=== PATIENT | female | born 1955 | race Caucasian/White ===

== ENCOUNTER 2020-04-18 13:14 | Outpatient (REF) | payer OTHER, SELFPAY ==
[2020-04-19 12:24] LABS: COVID-19 Test Negative (Negative)
== END 2020-04-18 13:15 | disposition home or self-care (01) ==
LOC: HO.LAB 13:14
PROVIDERS: PCP Internal Medicine; Visit Provider Internal Medicine
DX: Z20.828 Contact with and (suspected) exposure to other viral communicable diseases (principal)
CPT/HCPCS: 87635

== ENCOUNTER 2020-04-20 17:13 | Outpatient (REF) | payer OTHER, SELFPAY ==
[2020-04-20 19:36] LABS: SARS COV2 PCR INHOUSE NEGATIVE (Negative)
== END 2020-04-20 17:14 | disposition home or self-care (01) ==
LOC: HO.LAB 17:13
PROVIDERS: Visit Provider Internal Medicine
DX: Z20.828 Contact with and (suspected) exposure to other viral communicable diseases (principal)
CPT/HCPCS: 87635

== ENCOUNTER 2020-04-23 07:19 | Outpatient (REF) | payer OTHER, SELFPAY ==
[2020-04-23 07:56] LABS: COVID-19 Test Negative (Negative)
== END 2020-04-23 07:20 | disposition home or self-care (01) ==
LOC: HO.LAB 07:19
PROVIDERS: Visit Provider Internal Medicine
DX: Z20.828 Contact with and (suspected) exposure to other viral communicable diseases (principal)
CPT/HCPCS: 87635

== ENCOUNTER 2020-06-13 06:48 | Outpatient (REF) | payer OTHER, SELFPAY ==
[2020-06-13 07:23] LABS: COVID-19 Test Negative (Negative)
== END 2020-06-13 06:49 | disposition home or self-care (01) ==
LOC: HO.EMPCOV 06:48
PROVIDERS: PCP Physician Assistant; Visit Provider Internal Medicine
DX: Z20.828 Contact with and (suspected) exposure to other viral communicable diseases (principal)
CPT/HCPCS: 87635; C9803

== ENCOUNTER 2020-09-03 07:56 | Outpatient (REF) | payer OTHER, SELFPAY ==
--- NOTE | ~2020-09-03 | MM_ITS ---
EXAMINATION: MM SCREENING DIGITAL BREAST TOMOSYNTHESIS, BILATERAL CLINICAL INFORMATION: Screening. Asymptomatic. The lifetime risk of breast cancer based on the Tyrer-Cuzick Model is 6%. COMPARISON: Mammography: 05/17/2018, 02/22/2017, 12/06/2015 TECHNIQUE: Digital breast tomosynthesis is performed in both the craniocaudal and mediolateral oblique views along with computer-aided detection (CAD). Synthesized 2D images are generated from the tomosynthesis. FINDINGS: There are scattered areas of fibroglandular density (ACR BI-RADS breast composition Category b). There are no significant masses, abnormal calcifications, or other abnormalities. Parenchymal pattern is similar to prior exams. There are scattered bilateral benign calcifications again seen, round, vascular, and ductal secretory. The skin contours are unremarkable. MM/MM tomosynthesis screening BI IMPRESSION: No mammographic evidence of malignancy. ASSESSMENT: BI-RADS 2: Benign RECOMMENDATION: Routine annual mammography screening. This patient's information was entered into a reminder system with a target due date for their next mammogram.
== END 2020-09-03 07:57 | disposition home or self-care (01) ==
LOC: HO.MAMMO 07:56
PROVIDERS: Absent Provider Obstetrics & Gynecology; Visit Provider Physician Assistant
DX: Z12.31 Encounter for screening mammogram for malignant neoplasm of breast (principal)
CPT/HCPCS: 77063; 77067

== ENCOUNTER 2020-10-01 07:19 | Outpatient (REF) | payer OTHER, SELFPAY ==
[2020-10-01 08:16] LABS: MANUAL DIFF FLAG NO
[2020-10-01 08:19] LABS: Basophils Percent Auto 0.6 % (0-2); Eosinophils Absolute Auto 0.1 X10*3/uL (0.0-0.4); Eosinophils Percent Auto 2.4 % (0-4); Hematocrit 43.9 % (37-47); Hemoglobin 14.5 g/dl (12.0-16.0); Imm Gran Abs Auto 0.01 X10*3/uL (0.00-0.03); Imm Gran Pct Auto 0.2 % (0.0-0.4); Lymphocytes Absolute Auto 1.8 X10*3/uL (1.2-4.9); Lymphocytes Percent Auto 34.9 % (20-40); Mean Corpuscular Hemoglobin 29.4 pg (27.0-33.0); Mean Platelet Volume 10.4 fL (9.4-12.3); Monocytes Absolute Auto 0.4 X10*3/uL (0.1-1.2); Monocytes Percent Auto 7.7 % (2-11); Neutrophils Absolute Auto 2.8 X10*3/uL (2.0-8.3); Neutrophils Percent Auto 54.2 % (45-73); Platelet Count 271 X10*3/uL (160-400); Red Blood Count 4.93 X10*6/uL (4.20-5.50); Red Cell Distribution Width 11.9 % (11.0-16.0); White Blood Count 5.1 X10*3/uL (4.8-10.8)
[2020-10-01 08:39] LABS: Alanine Aminotransferase 31 U/L (0-31); Albumin Level 4.5 g/dL (3.5-5.0); Alkaline Phosphatase 86 U/L (39-117); Anion Gap 13 (12-20); Aspartate Amino Transferase 24 U/L (5-31); Bilirubin Total 0.6 mg/dL (0.0-1.0); Blood Urea Nitrogen 15 mg/dL (9-16); Carbon Dioxide 31 mmol/L (22-29); Chloride 101 mmol/L (96-108); Cholesterol 191 mg/dL; Estimated Glomerular Filt Rate > 60; Glucose Fasting 123 mg/dL (60-99); HDL Cholesterol 51 mg/dL; LDL Cholesterol Calculated 123 mg/dl; Potassium 4.5 mmol/L (3.3-5.1); Sodium 140 mmol/L (135-145); Triglycerides 87 mg/dL
[2020-10-01 08:49] LABS: Creatinine Urine 170.37 mg/dL
[2020-10-01 09:02] LABS: TSH reflex Free T4 3.14 uIU/mL (0.32-4.0)
== END 2020-10-01 07:20 | disposition home or self-care (01) ==
LOC: HO.LAB 07:19
PROVIDERS: PCP Physician Assistant; Visit Provider Physician Assistant
DX: E11.9 Type 2 diabetes mellitus without complications (principal)
CPT/HCPCS: 36415; 80053; 80061; 82043; 84443; 85025

== ENCOUNTER 2021-04-29 07:11 | Outpatient (REF) | payer OTHER, SELFPAY ==
[2021-04-29 07:28] LABS: Hematocrit 40.9 % (37-47); Mean Corpuscular HGB Conc 34.2 g/dl (31.0-35.0); Mean Corpuscular Hemoglobin 30.6 pg (27.0-33.0); Mean Corpuscular Volume 89.5 fL (80-98); Mean Platelet Volume 9.7 fL (9.4-12.3); Platelet Count 277 X10*3/uL (160-400); Red Blood Count 4.57 X10*6/uL (4.20-5.50); Red Cell Distribution Width 11.6 % (11.0-16.0); White Blood Count 6.4 X10*3/uL (4.8-10.8)
[2021-04-29 07:55] LABS: Alanine Aminotransferase 71 U/L (0-31); Albumin Level 4.3 g/dL (3.5-5.0); Alkaline Phosphatase 96 U/L (39-117); Anion Gap 11 (12-20); Aspartate Amino Transferase 35 U/L (5-31); Bilirubin Total 0.4 mg/dL (0.0-1.0); Blood Urea Nitrogen 14 mg/dL (9-16); Calcium 9.4 mg/dL (8.4-10.2); Carbon Dioxide 30 mmol/L (22-29); Chloride 103 mmol/L (96-108); Cholesterol 196 mg/dL; Estimated Glomerular Filt Rate > 60; Glucose Fasting 135 mg/dL (60-99); HDL Cholesterol 50 mg/dL; LDL Cholesterol Calculated 124 mg/dl; Potassium 4.3 mmol/L (3.3-5.1); Sodium 140 mmol/L (135-145); Total Protein 6.8 g/dL (6.5-8.0); Triglycerides 112 mg/dL
== END 2021-04-29 07:12 | disposition home or self-care (01) ==
LOC: HO.LAB 07:11
PROVIDERS: PCP Physician Assistant; Visit Provider Physician Assistant
DX: I10 Essential (primary) hypertension (principal); E78.2 Mixed hyperlipidemia; E11.9 Type 2 diabetes mellitus without complications
CPT/HCPCS: 36415; 80053; 80061; 85027

== ENCOUNTER 2021-06-13 09:55 | Outpatient (REF) | payer OTHER, SELFPAY ==
[2021-06-13 11:31] LABS: Influenza A PCR NEGATIVE (Negative); Influenza B PCR NEGATIVE (Negative); Resp Syncy Virus RNA Qual PCR NEGATIVE (Negative); SARS COV2 PCR INHOUSE NEGATIVE (Negative)
== END 2021-06-13 09:56 | disposition home or self-care (01) ==
LOC: HO.LAB 09:55
PROVIDERS: PCP Internal Medicine; Visit Provider Internal Medicine
DX: Z20.822 Contact with and (suspected) exposure to COVID-19 (principal)
CPT/HCPCS: 0241U; 36415

== ENCOUNTER 2021-06-14 07:51 | Outpatient (REF) | payer OTHER, SELFPAY ==
--- NOTE | ~2021-06-14 | US_ITS ---
EXAMINATION: US ABDOMEN COMPLETE CLINICAL INFORMATION: Elevated LFTs. COMPARISON: None. TECHNIQUE: Real-time imaging of the abdominal viscera. FINDINGS: PANCREAS: Normal. ABDOMINAL AORTA: The proximal, mid, and distal segments are normal in caliber. INFERIOR VENA CAVA: Visualized portions are normal. LIVER: The liver is diffusely echogenic with areas of focal fatty sparing. The liver is normal in size. The liver contour is normal. No focal hepatic lesion. There is no intrahepatic biliary duct dilatation seen. GALLBLADDER: Normal. The gallbladder is physiologically distended without evidence of stones, sludge, polyps, wall thickening or pericholecystic fluid. COMMON BILE DUCT: Normal in caliber measuring 0.4 cm in diameter. RIGHT KIDNEY: Normal. No hydronephrosis. No renal calculi or focal parenchymal lesions. The kidney measures 11.9 cm in maximum dimension. LEFT KIDNEY: Normal. No hydronephrosis. No renal calculi or focal parenchymal lesions. The kidney measures 11.8 cm in maximum dimension. SPLEEN: Normal. The spleen measures 9.0 cm in maximum dimension. FREE FLUID: None. US/US abdomen complete IMPRESSION: Diffuse hepatic steatosis without focal lesion. The rest of the abdominal ultrasound is unremarkable.
== END 2021-06-14 07:52 | disposition home or self-care (01) ==
LOC: HO.US 07:51
PROVIDERS: PCP Physician Assistant; Visit Provider Physician Assistant
DX: R74.8 Abnormal levels of other serum enzymes (principal)
CPT/HCPCS: 76700

== ENCOUNTER 2021-09-09 07:52 | Outpatient (REF) | payer OTHER, SELFPAY ==
--- NOTE | ~2021-09-09 | MM_ITS ---
EXAMINATION: MM SCREENING DIGITAL BREAST TOMOSYNTHESIS, BILATERAL CLINICAL INFORMATION: Screening. Asymptomatic. The lifetime risk of breast cancer based on the Tyrer-Cuzick Model is 5%. COMPARISON: Mammography: 09/03/2020, 05/17/2018, 02/22/2017 TECHNIQUE: Digital breast tomosynthesis is performed in both the craniocaudal and mediolateral oblique views along with computer-aided detection (CAD). Synthesized 2D images are generated from the tomosynthesis. FINDINGS: There are scattered areas of fibroglandular density (ACR BI-RADS breast composition Category b). There are no significant masses, abnormal calcifications, or other abnormalities. Breast parenchymal pattern borders on heterogeneously dense. Parenchymal pattern is similar to prior studies and there is no developing density. Again, there are scattered bilateral ductal secretory, round, and dermal, and vascular calcifications. The axilla and skin contours are unremarkable. MM/MM tomosynthesis screening BI IMPRESSION: No mammographic evidence of malignancy. ASSESSMENT: BI-RADS 2: Benign RECOMMENDATION: Routine annual mammography screening. This patient's information was entered into a reminder system with a target due date for their next mammogram.
== END 2021-09-09 07:53 | disposition home or self-care (01) ==
LOC: HO.MAMMO 07:52
PROVIDERS: PCP Physician Assistant; Visit Provider Physician Assistant
DX: Z12.31 Encounter for screening mammogram for malignant neoplasm of breast (principal)
CPT/HCPCS: 77063; 77067

== ENCOUNTER 2021-09-29 14:34 | Inpatient (IN) | payer OTHER, SELFPAY ==
--- NOTE | ~2021-09-29 | NM_ITS ---
EXERCISE MYOCARDIAL PERFUSION STUDY INDICATION: Chest pain, assess for coronary disease and ischemia TECHNIQUE: The patient was brought in for an exercise perfusion study on 10/02/2021. Patient performed exercise as per Antonio protocol and was injected 25 mCi of sestamibi once target heart rate was achieved. Images were obtained using the SPECT gamma camera interlaced with the gating device. Images were obtained in supine position. Resting perfusion study was performed on 10/03/2021. Patient was administered 25 mCi of sestamibi intravenously at rest. Images were then obtained in supine position. Total DLP 97mGy-cm. Images were processed with the software and compared side to side in short axis, horizontal long axis and vertical long axis views. FINDINGS: Raw images were reviewed. The stress perfusion study showed no significant perfusion abnormality. Both uncorrected as well as CT attenuation corrected images were reviewed. The gated study shows normal LV systolic function with calculated LVEF of 73%. LV cavity is normal in size. The gated study shows normal wall thickening and contraction of segments. Resting study shows no significant perfusion abnormality. Gating at rest reveals normal wall motion with ejection fraction at 68%. The findings are consistent with no reversible or fixed perfusion abnormality. NM/NM fam perf SPECT rest & str IMPRESSION: 1. Myocardial perfusion imaging study shows normal myocardial perfusion. 2. Gated LVEF is 70% during stress and 68% during rest. 3. Transient ischemic dilatation not present. EKG component of the test reported separately.
--- NOTE | ~2021-09-29 | XR_ITS ---
EXAMINATION: XR CHEST CLINICAL INFORMATION: Chest pain COMPARISON: None TECHNIQUE: 2 views of the chest were obtained. FINDINGS: No significant abnormality is noted involving the heart, lungs, mediastinum, bony thorax or soft tissues. XR/XR chest 2V IMPRESSION: Unremarkable chest examination.
--- NOTE | 2021-09-29 14:35 | ECG_ITS ---
Test Reason : CHEST PAIN Blood Pressure : / mmHG Vent. Rate : 085 BPM Atrial Rate : 085 BPM P-R Int : 146 ms QRS Dur : 066 ms QT Int : 358 ms P-R-T Axes : 047 002 014 degrees QTc Int : 426 ms Normal sinus rhythm Possible Left atrial enlargement Possible Anterior infarct , age undetermined Nonspecific ST and T wave abnormality Abnormal ECG No previous ECGs available Referred By: Zfoia Zaman Electronically Signed By:JAYNE MADERA
[2021-09-29 14:48] LABS: MANUAL DIFF FLAG NO
[2021-09-29 14:51] LABS: Basophils Absolute Auto 0.1 X10*3/uL (0.0-0.2); Basophils Percent Auto 0.7 % (0-2); Eosinophils Absolute Auto 0.1 X10*3/uL (0.0-0.4); Eosinophils Percent Auto 1.5 % (0-4); Hematocrit 41.2 % (37.0-47.0); Hemoglobin 13.9 g/dl (12.0-16.0); Imm Gran Abs Auto 0.04 X10*3/uL (0.00-0.03); Imm Gran Pct Auto 0.4 % (0.0-0.4); Lymphocytes Absolute Auto 2.6 X10*3/uL (1.2-4.9); Lymphocytes Percent Auto 27.5 % (20-40); Mean Corpuscular HGB Conc 33.7 g/dl (31.0-35.0); Mean Corpuscular Hemoglobin 29.6 pg (27.0-33.0); Mean Corpuscular Volume 87.8 fL (80.0-98.0); Mean Platelet Volume 9.7 fL (9.4-12.3); Monocytes Absolute Auto 0.6 X10*3/uL (0.1-1.2); Neutrophils Absolute Auto 6.1 x10*3/uL (2.0-8.3); Neutrophils Percent Auto 63.9 % (45-73); Platelet Count 315 X10*3/uL (160-400); Red Blood Count 4.69 X10*6/uL (4.20-5.50); Red Cell Distribution Width 11.6 % (11.0-16.0); White Blood Count 9.5 X10*3/uL (4.8-10.8)
[2021-09-29 15:07] LABS: Alanine Aminotransferase 27 U/L (0-31); Albumin Level 4.5 g/dL (3.5-5.0); Alkaline Phosphatase 97 U/L (39-117); Anion Gap 13 (12-20); Aspartate Amino Transferase 20 U/L (5-31); Bilirubin Total 0.3 mg/dL (0.0-1.0); Blood Urea Nitrogen 14 mg/dL (9-16); Carbon Dioxide 28 mmol/L (22-29); Chloride 99 mmol/L (96-108); Estimated Glomerular Filt Rate > 60; Glucose Random 191 mg/dL (60-115); Magnesium 1.9 mg/dL (1.6-2.6); Potassium 4.2 mmol/L (3.3-5.1); Sodium 136 mmol/L (135-145); Total Protein 7.2 g/dL (6.5-8.0)
[2021-09-29 15:09] LABS: Prothrombin Time 11.8 SEC (9.9-13.0)
[2021-09-29 15:12] LABS: B Type Natriuretic Peptide < 10 pg/mL (<100); Troponin-I High Sensitivity < 3.5 ng/L (<3.5-17.0)
--- NOTE | 2021-09-29 15:14 | ED.CHESTPAIN ---
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 She reports that the pain came on suddenly and resolved at rest. She denies any fevers, chills, dizziness, headaches, neck pain/stiffness, trouble swallowing or breathing, jaw pain, paresthesias, dyspnea on exertion, orthopnea, cough, orthopnea, nausea/vomiting/diarrhea constipation, abdominal pain, back pain, rashes, recent falls or trauma, recent immobilization or surgery, history of PVD disease, recent illness, lower extremity edema or calf tenderness or any other symptoms complaints or concerns at this time. MD complaint: chest pain Onset (ago): minute(s) (Prior to arrival) Timing of current episode: episodic Prior episodes: No Onset: during exertion Pain location: substernal and epigastric Pain radiation: none Severity: mild Quality: other (Pressure sensation per patient) Relieving factors: rest Exacerbating factors: exertion Treatment prior to arrival: none Risk Factors Coronary artery disease risk factors: diabetes, hyperlipidemia and hypertension Thoracic aortic dissection risk factors: none Related Data On Oral Contraceptives: No Home Medications Medication Instructions Recorded Confirmed cholecalciferol (vitamin D3) 50 50 mcg PO MOFR 03/09/21 09/29/21 mcg (2,000 unit) capsule atorvastatin 20 mg tablet 20 mg PO MOWEFR 09/29/21 09/29/21 metformin 500 mg tablet,extended 1,000 mg PO BIDWM 09/29/21 09/29/21 release 24 hr Previous Rx's Medication Instructions Recorded blood sugar diagnostic #100 ea 10/24/20 lancets 33 gauge (OneTouch Delica #100 ea 01/16/21 Plus Lancet) blood sugar diagnostic (OneTouch #100 ea 07/10/21 Ultra Test) lisinopril 10 mg tablet 10 mg PO DAILY #90 tab 07/10/21 Allergies Allergy/AdvReac Type Severity Reaction Status Date / Time Sulfa (Sulfonamide Allergy Unknown rash all Verified 07/10/21 09:18 Antibiotics) over body sulfamethoxazole Allergy Unknown rash all Verified 07/10/21 09:18 [From Bactrim] over body trimethoprim [From Bactrim] Allergy Unknown rash all Verified 07/10/21 09:18 over body Review of Systems Review of Systems: Constitutional : No Weight loss, No Fever, No Chills, No Night Sweats, No Fatigue, No Malaise ENT/Mouth : No Hearing loss, No Ear Pain, No Nasal Congestion, No Sinus Pain, No Hoarseness, No sore throat, No Rhinorrhea, No Swallowing Difficulty Eyes: No Eye Pain, No Swelling, No Redness, No Foreign Body, No Discharge, No Vision Changes Cardiovascular : + episodic Chest Pain, No SOB, No Dyspnea on Exertion, No Orthopnea, No Edema, No Palpitations Respiratory : No Cough, No Sputum, No Wheezing, No Smoke Exposure, No Dyspnea Gastrointestinal : No Nausea, No Vomiting, No Diarrhea, No Constipation, No abdominal Pain, No Hematochezia, No Melena Genitourinary : no irregular bleeding, No Dysuria, No Urinary Frequency, No Hematuria, No Urinary Incontinence, No Urgency, No Flank Pain, No Urinary Flow Changes, No Hesitancy Musculoskeletal : No joint pain, No Myalgias, No Joint Swelling Skin : No Skin Lesions, No rash Neuro : No Weakness, No Numbness, No Paresthesias, No Loss of Consciousness, No Dizziness, No Headache Psych : No Anxiety/Panic, No Depression, No SI/HI/AH/VH, No Social Issues, Heme/Lymph: No Bruising, No Bleeding,No Lymphadenopathy Endocrine : No Polyuria, No Polydipsia, No Temperature Intolerance Yes all other systems are reviewed and are negative [facility] Past Medical History Attestation statement: The following information was validated with the patient. Surgical History History of abdominal surgery History of arthroscopy of left knee History of cervical polypectomy History of section History of colonoscopy History of vocal cord polypectomy Family History Family History Father Lung cancer Hypertension High cholesterol CAD (coronary artery disease) Mother Lung cancer Hypertension Stroke High cholesterol Son No problems noted. Daughter Asthma Hypothyroid Maternal Grandmother Diabetes Hypertension Stroke Maternal Grandfather No problems noted. Paternal Grandmother CAD (coronary artery disease) Hypertension Sister Melanoma Mental health disorder Social History Social History Housing: House Alcohol intake: current Alcohol intake frequency: a few times a week Alcohol type: beer Patient Tobacco Use Status: Former Tobacco user Tobacco use type: Cigarette e-Cigarette/Vaping Use: Never Used Second Hand Smoke Exposure: No Advance Directives: Yes Advance Directives Information Provided: Yes Advance Directives on File: No service: No Current occupational status: employed Current occupational exposures/hazards: No Physical Exam Vital Signs: Vital Signs: Last Vital Signs Temp 97.6 F 09/29/21 17:10 Pulse 80 09/29/21 17:10 Resp 16 09/29/21 17:10 BP 169/79 H 09/29/21 17:10 Pulse Ox 98 09/29/21 17:10 BMI result Body Mass Index 26.4 vital signs have been reviewed as normal and appeared to be correct. Blood pressure normal. Heart rate normal. Respiration rate normal. Temperature normal. Oxygen saturation normal. Appearance: Alert. Oriented X3. No acute distress. Head: Normal external exam. Normocephalic. Atraumatic. Eyes: PERRLA. EOMI. Conjunctiva and sclera normal. Eyelids normal. ENT: Pharynx normal. Uvula midline. Moist mucous membranes. Normal voice. No trismus noted. No drooling noted. No muffled voice noted. Neck: Normal inspection. Neck supple. FROM. No adenopathy. Thyroid Normal. No meningeal signs. No neck mass noted. CVS: Normal heart rate and rhythm. Heart sound normal. Pulses normal throughout. No murmurs/rales/gallops. Respiratory: No respiratory distress. Painless inspiration. Breath sounds normal. No wheezes/rales/rhonchi noted. Chest nontender. No crepitus is noted. No signs of trauma noted. No accessory muscle usage noted or decreased air movement noted. No signs of trauma. Abdomen: Soft and nontender. Bowel sounds normal in all 4 quadrants. No distention noted. No organomegaly noted. No visible injury noted. Back: Full range of motion noted. Skin: Skin warm and dry. Normal skin color. Normal skin turgor. No rashes/lesions/lacerations noted. Extremities: No lower extremity edema. No calf tenderness is noted. Extremities exhibit normal range of motion and nontender. Neuro: Oriented X 3. No motor deficit. No sensory deficit. Reflexes normal. Normal steady gait. No focal neuro deficits noted. CN's II-XII intact bilaterally? Vascular: + radial pulses/+ 2 distal pedal pulses/+2 dorsalis pedis b/l. Normal cap refill. No cyanosis noted to upper extremity nails and lower extremity toes nails. 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 She reports that the pain came on suddenly and resolved at rest. Plan: Labs with at least 2 sets of troponin, EKG, chest x-ray. Provide 324 mg of chewable aspirin then re-evaluate. Reevaluation(s) Reevaluation #1: - labs reviewed and random glucose 191 otherwise all other labs including troponin 2 sets of troponin and BNP within normal limits/negative. Chest x-ray within normal limits. EKG normal sinus rhythm with left atrial enlargement and nonspecific ST flattening no acute ischemic changes are noted although no prior EKGs in our system to compare to at this time. - therefore I discussed this case with Dr. Estrada and he recommended admitting the patient for new acute onset chest pain that is worsened with exertion and he reported that I should discuss this with Dr. Jose the refrigerating machine operator - therefore I discussed this with Dr. Jose and he reported that she is not an active patient of Dr. Macdonald that she was last seen in 2018 and he recommended repeating a troponin in 3-4 hours. He also reported if she wants to be admitted then he will see her in the morning although that she will not have an echocardiogram or stress test until possibly Saturday therefore I discussed this with the patient and she reports that she will stay. - therefore I discussed this case with Dr. Oseguera and she will be admitting at this time. Time: 17:47 MDM - Chest Pain Medical Records Data Attestation: I reviewed the patient's medical records. Lab Data Attestation: I reviewed the patient's lab results. Result diagrams: 09/29/21 14:45 09/29/21 14:45 Labs: Lab Results 09/29/21 09/29/21 09/29/21 Range/Units 14:45 14:45 14:45 WBC 9.5 (4.8-10.8) X10*3/uL RBC 4.69 (4.20-5.50) X10*6/uL Hgb 13.9 (12.0-16.0) g/dl Hct 41.2 (37.0-47.0) % MCV 87.8 (80.0-98.0) fL MCH 29.6 (27.0-33.0) pg MCHC 33.7 (31.0-35.0) g/dl RDW 11.6 (11.0-16.0) % Plt Count 315 (160-400) X10*3/uL MPV 9.7 (9.4-12.3) fL Immature Gran % (Auto) 0.4 (0.0-0.4) % Neut % (Auto) 63.9 (45-73) % Lymph % (Auto) 27.5 (20-40) % [place] % (Auto) 6.0 (2-11) % Eos % (Auto) 1.5 (0-4) % Baso % (Auto) 0.7 (0-2) % Lymph # (Auto) 2.6 (1.2-4.9) X10*3/uL [place] # (Auto) 0.6 (0.1-1.2) X10*3/uL Eos # (Auto) 0.1 (0.0-0.4) X10*3/uL Baso # (Auto) 0.1 (0.0-0.2) X10*3/uL Abs Immat Gran (auto) 0.04 H (0.00-0.03) X10*3/uL Absolute Neuts (auto) 6.1 (2.0-8.3) x10*3/uL Absolute Nucleated RBC 0.000 (0.0-0.012) X10*3/uL Nucleated RBC % (auto) 0.0 (0.0-0.2) /100WBC PT 11.8 (9.9-13.0) SEC INR 1.0 (0.9-1.1) Sodium 136 (135-145) mmol/L Potassium 4.2 (3.3-5.1) mmol/L Chloride 99 (96-108) mmol/L Carbon Dioxide 28 (22-29) mmol/L Anion Gap 13 (12-20) BUN 14 (9-16) mg/dL Creatinine 0.80 (0.5-1.4) mg/dL Estim Creat Clear Calc TNP Estimated GFR > 60 Random Glucose 191 H (60-115) mg/dL Calcium 10.0 D (8.4-10.2) mg/dL Magnesium 1.9 (1.6-2.6) mg/dL Total Bilirubin 0.3 (0.0-1.0) mg/dL AST 20 D (5-31) U/L ALT 27 (0-31) U/L Alkaline Phosphatase 97 (39-117) U/L Troponin I High Sens (<3.5-17.0) ng/L B-Natriuretic Peptide (<100) pg/mL Total Protein 7.2 (6.5-8.0) g/dL Albumin 4.5 (3.5-5.0) g/dL Lipase 46 (8-78) U/L 09/29/21 09/29/21 Range/Units 14:45 17:25 WBC (4.8-10.8) X10*3/uL RBC (4.20-5.50) X10*6/uL Hgb (12.0-16.0) g/dl Hct (37.0-47.0) % MCV (80.0-98.0) fL MCH (27.0-33.0) pg MCHC (31.0-35.0) g/dl RDW (11.0-16.0) % Plt Count (160-400) X10*3/uL MPV (9.4-12.3) fL Immature Gran % (Auto) (0.0-0.4) % Neut % (Auto) (45-73) % Lymph % (Auto) (20-40) % [place] % (Auto) (2-11) % Eos % (Auto) (0-4) % Baso % (Auto) (0-2) % Lymph # (Auto) (1.2-4.9) X10*3/uL [place] # (Auto) (0.1-1.2) X10*3/uL Eos # (Auto) (0.0-0.4) X10*3/uL Baso # (Auto) (0.0-0.2) X10*3/uL Abs Immat Gran (auto) (0.00-0.03) X10*3/uL Absolute Neuts (auto) (2.0-8.3) x10*3/uL Absolute Nucleated RBC (0.0-0.012) X10*3/uL Nucleated RBC % (auto) (0.0-0.2) /100WBC PT (9.9-13.0) SEC INR (0.9-1.1) Sodium (135-145) mmol/L Potassium (3.3-5.1) mmol/L Chloride (96-108) mmol/L Carbon Dioxide (22-29) mmol/L Anion Gap (12-20) BUN (9-16) mg/dL Creatinine (0.5-1.4) mg/dL Estim Creat Clear Calc Estimated GFR Random Glucose (60-115) mg/dL Calcium (8.4-10.2) mg/dL Magnesium (1.6-2.6) mg/dL Total Bilirubin (0.0-1.0) mg/dL AST (5-31) U/L ALT (0-31) U/L Alkaline Phosphatase (39-117) U/L Troponin I High Sens < 3.5 < 3.5 (<3.5-17.0) ng/L B-Natriuretic Peptide < 10 (<100) pg/mL Total Protein (6.5-8.0) g/dL Albumin (3.5-5.0) g/dL Lipase (8-78) U/L Imaging Data Chest x-ray: Attestation: I personally reviewed and interpreted this imaging study as follows: Radiologist's impression: FINDINGS: No significant abnormality is noted involving the heart, lungs, mediastinum, bony thorax or soft tissues. XR/XR chest 2V IMPRESSION: Unremarkable chest examination. ECG Data ECG #1: Attestation: I personally reviewed and interpreted this ECG as follows: ECG interpretation date: 09/29/21 ECG interpretation time: 14:31 Interpretation: Normal sinus rhythm with ventricular rate of 85 with left atrial enlargement and nonspecific flattening T's otherwise no acute ischemic changes are noted. No prior EKGs to compare to at this time. Discharge Plan Discharge Clinical Impression: Chest pain Patient Disposition: Admitted As Inpatient
[2021-09-29] MEDS: Aspirin 81 MG TAB.CHEW 324 MG PO (15:28)
[2021-09-29 15:57] LABS: Lipase 46 U/L (8-78)
[2021-09-29 17:10] VITALS: BP 169/79; PULSE 80; RESP 16; TEMP 36.4; O2SAT 98; BMI 26.4
--- NOTE | 2021-09-29 17:51 | PHA.MEDREC ---
Pharmacy Consult ? Medication Reconciliation Pharmacy has completed the medication reconciliation.
[2021-09-29 17:53] LABS: Troponin-I High Sensitivity < 3.5 ng/L (<3.5-17.0)
--- NOTE | 2021-09-29 18:34 | P.HPHOSP_ITS ---
History of Present Illness Date of Service: 09/29/21 Attending physician on admission: Ravi Oseguera Chief Complaint: chest pressure 66-year-old female with past medical history of hypertension, type 2 diabetes mellitus, hyperlipidemia and history of tricuspid regurgitation was evaluated by Dr. Bellamy in the past presented to [facility] with 3 separate episodes of midsternal chest pressure that was exertional according to patient she was working and noticed anterior chest heaviness that lasted 1-2 minutes without associated shortness of breath, diaphoresis ,tachycardia she rested symptoms improved she went back to work again had another episode of epigastric discomfort, that also resolved with resting she went back to work and again had 3rd episode of chest heaviness, therefore got evaluated at [place] [facility], she denied associated symptoms of lightheadedness dizziness, syncope, denied associated nausea, vomiting heartburn, acidity, pain was localized with no radiation, initial workup in the ED showed negative troponin x2, EKG showed nonspecific ST and T-wave abnormality, unremarkable chest x-ray, due to multiple coronary artery disease risk factors patient is being admitted further evaluation and treatment. Review of Systems Review of Systems: General no headache no dizziness no fever chills. CVS Chest pressure, no palpitation. Respiratory no cough no sob. Gastrointestinal no nausea no vomiting, no abdominal pain Yes all other systems are reviewed and are negative PMFSH Family History Father Lung cancer Hypertension High cholesterol CAD (coronary artery disease) Mother Lung cancer Hypertension Stroke High cholesterol Son No problems noted. Daughter Asthma Hypothyroid Maternal Grandmother Diabetes Hypertension Stroke Maternal Grandfather No problems noted. Paternal Grandmother CAD (coronary artery disease) Hypertension Sister Melanoma Mental health disorder Surgical History History of abdominal surgery History of arthroscopy of left knee History of cervical polypectomy History of section History of colonoscopy History of vocal cord polypectomy Social History Housing: House Alcohol intake: current Alcohol intake frequency: a few times a week Alcohol type: beer Patient Tobacco Use Status: Former Tobacco user Tobacco use type: Cigarette e-Cigarette/Vaping Use: Never Used Second Hand Smoke Exposure: No Advance Directives: Yes Advance Directives Information Provided: Yes Advance Directives on File: No service: No Current occupational status: employed Current occupational exposures/hazards: No Meds Allergies Allergy/AdvReac Type Severity Reaction Status Date / Time Sulfa (Sulfonamide Allergy Unknown rash all Verified 07/10/21 09:18 Antibiotics) over body sulfamethoxazole Allergy Unknown rash all Verified 07/10/21 09:18 [From Bactrim] over body trimethoprim [From Bactrim] Allergy Unknown rash all Verified 07/10/21 09:18 over body Active Medications: Current Medications Acetaminophen (Acetaminophen 325 Mg Tablet) 650 mg PO Q6H PRN PRN Reason: Pain, Mild (Pain Scale 1-3) Atorvastatin Calcium (Atorvastatin Calcium 20 Mg Tablet) [facility] Lisinopril (Lisinopril 10 Mg Tablet) 10 mg PO DAILY [facility]; Protocol Nitroglycerin (Nitroglycerin 0.4 Mg Tab.Subl) 0.4 mg SUBLINGUAL Q5MX3 PRN PRN Reason: Chest Pain Ondansetron HCl (Ondansetron Hcl 4 Mg/2 Ml Vial) 4 mg IVPUSH Q8H PRN PRN Reason: Nausea and Vomiting Pharmacy Consult (Consult Rx Perform Med Rec) 1 each MISCELLANE ONCE PRN PRN Reason: Consult order Sodium Chloride (0.9 % Sodium Chloride Flush 3 Ml Syringe) 3 ml IVFLUSH [facility] Vitamin D (Cholecalciferol (Vitamin D3) 25 Mcg Tablet) 50 mcg PO [facility] Home Medications Medication Instructions Recorded Confirmed Last Taken Type cholecalciferol (vitamin D3) 50 50 mcg PO MOFR 03/09/21 09/29/21 09/29/21 History mcg (2,000 unit) capsule atorvastatin 20 mg tablet 20 mg PO MOWEFR 09/29/21 09/29/21 09/29/21 History metformin 500 mg tablet,extended 1,000 mg PO BIDWM 09/29/21 09/29/21 09/29/21 History release 24 hr Physical Exam Vital Signs and Narrative: Vital Signs: Last Vital Signs Temp 97.6 F 09/29/21 17:10 Pulse 80 09/29/21 17:10 Resp 16 09/29/21 17:10 BP 169/79 H 09/29/21 17:10 Pulse Ox 98 09/29/21 17:10 BMI result Body Mass Index 26.4 Const: Other: General awake alert x 3, no acute distress. Neck no JVD. CVS regular rate rhythm, systolic murmur Respiratory lungs clear to auscultation, no respiratory distress, no wheeze, no rhonchi. Gastrointestinal abdomen soft, nontender, bowel sounds audible Extremities no edema. Neuro nonfocal Skin no rash psych appropriate affect musculoskeletal no deformity Results Labs CBC and Chem 7: 09/29/21 14:45 09/29/21 14:45 Labs: Laboratory Results - last 24 hr 09/29/21 09/29/21 09/29/21 14:45 14:45 14:45 MCV 87.8 MCH 29.6 MCHC 33.7 RDW 11.6 Plt Count 315 MPV 9.7 Immature Gran % (Auto) 0.4 Neut % (Auto) 63.9 Lymph % (Auto) 27.5 [place] % (Auto) 6.0 Eos % (Auto) 1.5 Baso % (Auto) 0.7 Lymph # (Auto) 2.6 [place] # (Auto) 0.6 Eos # (Auto) 0.1 Baso # (Auto) 0.1 Abs Immat Gran (auto) 0.04 H Absolute Neuts (auto) 6.1 Absolute Nucleated RBC 0.000 Nucleated RBC % (auto) 0.0 PT 11.8 INR 1.0 Anion Gap 13 Estim Creat Clear Calc TNP Estimated GFR > 60 Random Glucose 191 H Calcium 10.0 D Magnesium 1.9 Total Bilirubin 0.3 AST 20 D ALT 27 Alkaline Phosphatase 97 Troponin I High Sens B-Natriuretic Peptide Total Protein 7.2 Albumin 4.5 Lipase 46 09/29/21 09/29/21 14:45 17:25 MCV MCH MCHC RDW Plt Count MPV Immature Gran % (Auto) Neut % (Auto) Lymph % (Auto) [place] % (Auto) Eos % (Auto) Baso % (Auto) Lymph # (Auto) [place] # (Auto) Eos # (Auto) Baso # (Auto) Abs Immat Gran (auto) Absolute Neuts (auto) Absolute Nucleated RBC Nucleated RBC % (auto) PT INR Anion Gap Estim Creat Clear Calc Estimated GFR Random Glucose Calcium Magnesium Total Bilirubin AST ALT Alkaline Phosphatase Troponin I High Sens < 3.5 < 3.5 B-Natriuretic Peptide < 10 Total Protein Albumin Lipase Imaging Radiologist's Impressions: Impressions Chest X-Ray 09/29/21 14:45 IMPRESSION: Unremarkable chest examination. Assessment and Plan (1) Chest pain: Status: Acute (2) HLD (hyperlipidemia): Qualifiers: Hyperlipidemia type: mixed hyperlipidemia Qualified Code(s): E78.2 - Mixed hyperlipidemia Status: Acute (3) HTN (hypertension): Qualifiers: Hypertension type: essential hypertension Qualified Code(s): I10 - Essential (primary) hypertension Status: Acute (4) DMII (diabetes mellitus, type 2): Qualifiers: Diabetes mellitus ad terminal makeup operator insulin use: without ad terminal makeup operator use Diabetes mellitus complication status: without complication Qualified Code(s): E11.9 - Type 2 diabetes mellitus without complications Status: Acute Plan 66-year-old female patient with past medical history of hyperlipidemia, h ypertension, type 2 diabetes mellitus and tricuspid regurgitation presented with 3 episode of exertional chest discomfort lasting for few minutes and relieved with rest patient is being admitted for Cardiology evaluation and further testing chest pain since chest pain is exertional and relieved with rest is concerning for cardiac ischemia will admit to telemetry unit, obtain cardiology consultation troponins x2 negative EKG with nonspecific ST changes will place on sublingual nitro, received aspirin in ED cardiology consult. hypertension continue Zestril 10 mg daily diabetes mellitus type 2 on metformin, check blood sugar b.i.d. hold metformin hyperlipidemia continue Lipitor DVT prophylaxis with Lovenox code status full code Quality Stroke Does the patient have a stroke diagnosis?: No VTE Prior VTE?: No VTE Risk Level:: Medical - moderate - high VTE Device Contraindication: Treatment Not Indicated VTE Drug Contraindication: N/A - Med Ordered
[2021-09-29 19:06] LABS: COVID-19 Test Negative (Negative)
[2021-09-29 21:34] VITALS: BP 147/75; PULSE 68; RESP 18; O2SAT 97
[2021-09-29 21:36] LABS: Glucose, Whole Blood 141 mg/dL (60-115)
[2021-09-29] MEDS: 0.9 % Sodium Chloride Flush 3 ML SYRINGE IVFLUSH (22:15)
[2021-09-30] VITALS: BP 126/64; PULSE 66; RESP 18; TEMP 36.4; O2SAT 97
[2021-09-30 03:52] VITALS: BP 123/58; PULSE 68; RESP 18; TEMP 36.5; O2SAT 98
[2021-09-30 08:00] VITALS: BP 129/58; PULSE 70; RESP 18; TEMP 36; O2SAT 97
--- NOTE | 2021-09-30 09:12 | MHC.CM.PN ---
PATIENT IS FULLY INDEPENDENT SHE USES NO DME OR VNA SERVICES AND IS EMPLOYED IN [facility] [facility] [employer] [facility] SHE ASKS FOR A HCP DOCUMENT, NAMING HER DAUGHTERS. ONCE COMPLETED, DOCUMENT WILL BE UPLOADED INTO [employer] AND PLACED IN CHART. PATIENT TO RECEIVE ORIGINAL AND THREE COPIES. PATIENT IS COVID VACCINATED. CARDIAC CONSULT PENDING. SHE IS HOPING TO BE ABLE TO DISCHARGE HOME TODAY FAMILY WILL TRANSPORT.
--- NOTE | 2021-09-30 10:05 | P.PNIM_ITS ---
Subjective Subjective Date of Service: 09/30/21 Interval History: cc: chest pain interval history:resolved Cardiovascular Cardiovascular: Reports no additional cardiovascular complaints Respiratory Respiratory: Reports no additional respiratory complaints Physical Exam Vital Signs: Vital Signs: Last Vital Signs Temp 96.8 F 09/30/21 08:00 Pulse 70 09/30/21 08:00 Resp 18 09/30/21 08:00 BP 129/58 L 09/30/21 08:00 Pulse Ox 97 09/30/21 08:00 BMI result Body Mass Index 26.4 General: AO X 3, no acute distress Resp: CTA bilateral, no accessory muscles used CVS: S1,S2,RRR GI: soft, non tender, non distended Neuro: motor grossly intact, alert Psych: appropriate affect, appropriate insight Objective Data Active Medications Acetaminophen (Acetaminophen 325 Mg Tablet) 650 mg PO Q6H PRN PRN Reason: Pain, Mild (Pain Scale 1-3) Atorvastatin Calcium (Atorvastatin Calcium 20 Mg Tablet) 20 mg PO MOWEFR [facility] Last Admin: 09/29/21 18:37 Dose: Not Given Documented by: BRAVO Non-Admin Reason: Entered in Error Lisinopril (Lisinopril 10 Mg Tablet) 10 mg PO DAILY [facility]; Protocol Nitroglycerin (Nitroglycerin 0.4 Mg Tab.Subl) 0.4 mg SUBLINGUAL Q5MX3 PRN PRN Reason: Chest Pain Ondansetron HCl (Ondansetron Hcl 4 Mg/2 Ml Vial) 4 mg IVPUSH Q8H PRN PRN Reason: Nausea and Vomiting Pharmacy Consult (Consult Rx Perform Med Rec) 1 each MISCELLANE ONCE PRN PRN Reason: Consult order Sodium Chloride (0.9 % Sodium Chloride Flush 3 Ml Syringe) 3 ml IVFLUSH QSHIFT [facility] Last Admin: 09/29/21 22:15 Dose: 3 ml Documented by: SUMAN Vitamin D (Cholecalciferol (Vitamin D3) 25 Mcg Tablet) 50 mcg PO [facility] Labs CBC & Chem 7: 09/29/21 14:45 09/29/21 14:45 Labs: Laboratory Results - last 24 hr 09/29/21 09/29/21 09/29/21 14:45 14:45 14:45 MCV 87.8 MCH 29.6 MCHC 33.7 RDW 11.6 Plt Count 315 MPV 9.7 Immature Gran % (Auto) 0.4 Neut % (Auto) 63.9 Lymph % (Auto) 27.5 [place] % (Auto) 6.0 Eos % (Auto) 1.5 Baso % (Auto) 0.7 Lymph # (Auto) 2.6 [place] # (Auto) 0.6 Eos # (Auto) 0.1 Baso # (Auto) 0.1 Abs Immat Gran (auto) 0.04 H Absolute Neuts (auto) 6.1 Absolute Nucleated RBC 0.000 Nucleated RBC % (auto) 0.0 PT 11.8 INR 1.0 Anion Gap 13 Estim Creat Clear Calc TNP Estimated GFR > 60 POC Glucose Random Glucose 191 H Calcium 10.0 D Magnesium 1.9 Total Bilirubin 0.3 AST 20 D ALT 27 Alkaline Phosphatase 97 Troponin I High Sens B-Natriuretic Peptide Total Protein 7.2 Albumin 4.5 Lipase 46 COVID-19 (BEATRIS) COVID-19 Clin Com 09/29/21 09/29/21 09/29/21 14:45 17:25 18:38 MCV MCH MCHC RDW Plt Count MPV Immature Gran % (Auto) Neut % (Auto) Lymph % (Auto) [place] % (Auto) Eos % (Auto) Baso % (Auto) Lymph # (Auto) [place] # (Auto) Eos # (Auto) Baso # (Auto) Abs Immat Gran (auto) Absolute Neuts (auto) Absolute Nucleated RBC Nucleated RBC % (auto) PT INR Anion Gap Estim Creat Clear Calc Estimated GFR POC Glucose Random Glucose Calcium Magnesium Total Bilirubin AST ALT Alkaline Phosphatase Troponin I High Sens < 3.5 < 3.5 B-Natriuretic Peptide < 10 Total Protein Albumin Lipase COVID-19 (BEATRIS) Negative COVID-19 Clin Com See Note 09/29/21 21:30 MCV MCH MCHC RDW Plt Count MPV Immature Gran % (Auto) Neut % (Auto) Lymph % (Auto) [place] % (Auto) Eos % (Auto) Baso % (Auto) Lymph # (Auto) [place] # (Auto) Eos # (Auto) Baso # (Auto) Abs Immat Gran (auto) Absolute Neuts (auto) Absolute Nucleated RBC Nucleated RBC % (auto) PT INR Anion Gap Estim Creat Clear Calc Estimated GFR POC Glucose 141 H Random Glucose Calcium Magnesium Total Bilirubin AST ALT Alkaline Phosphatase Troponin I High Sens B-Natriuretic Peptide Total Protein Albumin Lipase COVID-19 ([facility]AT[facility]IS) COVID-19 Clin Com Assessment and Plan (1) Chest pain: Status: Acute Plan 66F presented with chest pain ?chest pain troponin negative cardio appreciated plan for stress test and echo ?hypertension lisinopril monitor DM metformin on hold monitor poc, will add ISS if elevated ?hyperlipidemia continue Lipitor ?DVT prophylaxis with? Lovenox ?code status full code reason for continued hospitalization:plan for inpatient stress and echo Quality Stroke Does the patient have a stroke diagnosis?: No VTE Prior VTE?: No VTE Risk Level:: Medical - moderate - high VTE Device Contraindication: Treatment Not Indicated VTE Drug Contraindication: N/A - Med Ordered
[2021-09-30] MEDS: lisinopriL 10 MG TABLET PO (10:06)
[2021-09-30] MEDS: 0.9 % Sodium Chloride Flush 3 ML SYRINGE IVFLUSH ×2 (10:06→20:31)
--- NOTE | 2021-09-30 10:10 | MHC.CM.PN ---
ROMERO / IN CHART PER CARDIO, PATIENT TO REMAIN UNTIL SATURDAY FOR STRESS AND ECHO. PATIENT AWARE AND IN AGREEMENT
--- NOTE | 2021-09-30 10:39 | P.CONCA_ITS ---
History of Present Illness History of Present Illness Date of Service: 09/30/21 Chief complaint: chest pain Narrative: This is a cardiology consultation regarding chest pain. Patient has seen Dr. Macdonald in the past but not recently. She has multiple vascular risk factors including type 2 diabetes, hypertension, dyslipidemia. 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 She states that she was doing her usual work yesterday but then started developing chest pain. Initial episode was in the upper chest where it felt like a pressure. Last for a minute or so. Then she continued to work and felt another episode more sharp per in nature but in the lower retrosternal area. Then she thought it will go away but then after a while it started again when she again felt upper retrosternal chest pressure. Then she got herself checked in the emergency room and then she was admitted. Overnight she has not had any further pains. Otherwise, she does not have any known coronary disease or myocardial infarction. Review of Systems Review of Systems: Yes all other systems are reviewed and are negative Constitutional: Constitutional: Reports as per HPI Eyes: Eyes: Reports as per HPI ENT: Reports as per HPI Cardiovascular: Cardiovascular: Reports as per HPI, Denies acrocyanosis, Denies cool extremities, Reports chest pain, Denies leg edema, Denies lightheadedness, Denies palpitations and Denies dyspnea Respiratory: Respiratory: Reports as per HPI, Reports no additional respiratory complaints and Denies dyspnea Gastrointestinal: Gastrointestinal: Reports as per HPI and Reports no additional gastrointestinal complaints Genitourinary: Genitourinary: Reports as per HPI Musculoskeletal: Musculoskeletal: Reports no additional musculoskeletal complaints and Reports as per HPI Integumentary/Breasts: Skin/Breast: Reports system reviewed and no additional complaints, except as docu Neurologic: Reports system reviewed and no additional complaints, except as documented and Reports as per HPI Psychiatric: Psychiatric: Reports no additional psychiatric complaints and Reports as per HPI Endocrine: Endocrine: Reports no additional endocrine complaints, Reports as per HPI and Denies palpitations Hematologic/Lymphatic: Hematologic/Lymphatic: Reports no additional hematologic/lymphatic complaints and Reports as per HPI Allergic/Immunologic: Allergic/Immunologic: Reports no additional allergic/immunologic complaints and Reports as per HPI [facility] Past Medical History Medical History (Updated 09/30/21 @ 10:42 by Titi Jose MD) Essential hypertension Other and unspecified hyperlipidemia Type 2 diabetes mellitus with unspecified complications Family History Family History Father Lung cancer Hypertension High cholesterol CAD (coronary artery disease) Mother Lung cancer Hypertension Stroke High cholesterol Son No problems noted. Daughter Asthma Hypothyroid Maternal Grandmother Diabetes Hypertension Stroke Maternal Grandfather No problems noted. Paternal Grandmother CAD (coronary artery disease) Hypertension Sister Melanoma Mental health disorder Surgical History Surgical History History of abdominal surgery History of arthroscopy of left knee History of cervical polypectomy History of section History of colonoscopy History of vocal cord polypectomy Social History Social History Household Members: Other Housing: House Alcohol intake: current Alcohol intake frequency: a few times a week Alcohol type: beer Patient Tobacco Use Status: Former Tobacco user Tobacco use type: Cigarette e-Cigarette/Vaping Use: Former Use Second Hand Smoke Exposure: No Advance Directives Date on File: 09/30/21 service: No Current occupational status: employed Current occupational exposures/hazards: No Meds Allergies Allergy/AdvReac Type Severity Reaction Status Date / Time Sulfa (Sulfonamide Allergy Unknown rash all Verified 07/10/21 09:18 Antibiotics) over body sulfamethoxazole Allergy Unknown rash all Verified 07/10/21 09:18 [From Bactrim] over body trimethoprim [From Bactrim] Allergy Unknown rash all Verified 07/10/21 09:18 over body Active Medications: Current Medications Acetaminophen (Acetaminophen 325 Mg Tablet) 650 mg PO Q6H PRN PRN Reason: Pain, Mild (Pain Scale 1-3) Atorvastatin Calcium (Atorvastatin Calcium 20 Mg Tablet) 20 mg PO MOWEFR [facility] Last Admin: 09/29/21 18:37 Dose: Not Given Documented by: Lisinopril (Lisinopril 10 Mg Tablet) 10 mg PO DAILY [facility]; Protocol Last Admin: 09/30/21 10:06 Dose: 10 mg Documented by: Nitroglycerin (Nitroglycerin 0.4 Mg Tab.Subl) 0.4 mg SUBLINGUAL Q5MX3 PRN PRN Reason: Chest Pain Ondansetron HCl (Ondansetron Hcl 4 Mg/2 Ml Vial) 4 mg IVPUSH Q8H PRN PRN Reason: Nausea and Vomiting Pharmacy Consult (Consult Rx Perform Med Rec) 1 each MISCELLANE ONCE PRN PRN Reason: Consult order Sodium Chloride (0.9 % Sodium Chloride Flush 3 Ml Syringe) 3 ml IVFLUSH [facility] Last Admin: 09/30/21 10:06 Dose: 3 ml Documented by: Vitamin D (Cholecalciferol (Vitamin D3) 25 Mcg Tablet) 50 mcg PO [facility] Home Medications Medication Instructions Recorded Confirmed Last Taken Type cholecalciferol (vitamin D3) 50 50 mcg PO MOFR 03/09/21 09/29/21 09/29/21 History mcg (2,000 unit) capsule atorvastatin 20 mg tablet 20 mg PO MOWEFR 09/29/21 09/29/21 09/29/21 History metformin 500 mg tablet,extended 1,000 mg PO BIDWM 09/29/21 09/29/21 09/29/21 History release 24 hr Physical Exam Vital Signs: Vital Signs: Last Vital Signs Temp 96.8 F 09/30/21 08:00 Pulse 70 09/30/21 08:00 Resp 18 09/30/21 08:00 BP 129/58 L 09/30/21 08:00 Pulse Ox 97 09/30/21 08:00 BMI result Body Mass Index 26.4 Const: General: comfortable HEENT: Other: Unremarkable Head: Yes normal to inspection Neck: Neck: Yes normal visual inspection Chest: Chest palpation & inspection: normal inspection of the chest Resp: Auscultation: clear to auscultation bilaterally Cardio: Palpation: normal PMI Heart sounds: S1 normal heart sound present, S2 normal heart sound present, no gallops, Murmur heart sound present (3/6 ARMANDO aortic area; 2/6 SM lower left parasternal and apex ) and no rubs GI: Palpation (GI): Soft to palpation Back/Spine/Pelvis: Other: unremarkable Skin: General skin exam: no rashes or lesions noted Neuro: Cognition (Neuro): normal cognition Extrem: General: Yes normal to inspection Psych: Mental Status: mental status grossly normal Objective Labs and Meds Result diagrams: 09/29/21 14:45 09/29/21 14:45 Lab results: Laboratory Results - last 24 hr 09/29/21 09/29/21 09/29/21 14:45 14:45 14:45 WBC 9.5 RBC 4.69 Hgb 13.9 Hct 41.2 MCV 87.8 MCH 29.6 MCHC 33.7 RDW 11.6 Plt Count 315 MPV 9.7 Immature Gran % (Auto) 0.4 Neut % (Auto) 63.9 Lymph % (Auto) 27.5 [place] % (Auto) 6.0 Eos % (Auto) 1.5 Baso % (Auto) 0.7 Lymph # (Auto) 2.6 [place] # (Auto) 0.6 Eos # (Auto) 0.1 Baso # (Auto) 0.1 Abs Immat Gran (auto) 0.04 H Absolute Neuts (auto) 6.1 Absolute Nucleated RBC 0.000 Nucleated RBC % (auto) 0.0 PT 11.8 INR 1.0 Sodium 136 Potassium 4.2 Chloride 99 Carbon Dioxide 28 Anion Gap 13 BUN 14 Creatinine 0.80 Estim Creat Clear Calc TNP Estimated GFR > 60 POC Glucose Random Glucose 191 H Calcium 10.0 D Magnesium 1.9 Total Bilirubin 0.3 AST 20 D ALT 27 Alkaline Phosphatase 97 Troponin I High Sens B-Natriuretic Peptide Total Protein 7.2 Albumin 4.5 Lipase 46 COVID-19 (BEATRIS) [facility]-[employer] 09/29/21 09/29/21 09/29/21 14:45 17:25 18:38 WBC RBC Hgb Hct MCV MCH MCHC RDW Plt Count MPV Immature Gran % (Auto) Neut % (Auto) Lymph % (Auto) [place] % (Auto) Eos % (Auto) Baso % (Auto) Lymph # (Auto) [place] # (Auto) Eos # (Auto) Baso # (Auto) Abs Immat Gran (auto) Absolute Neuts (auto) Absolute Nucleated RBC Nucleated RBC % (auto) PT INR Sodium Potassium Chloride Carbon Dioxide Anion Gap BUN Creatinine Estim Creat Clear Calc Estimated GFR POC Glucose Random Glucose Calcium Magnesium Total Bilirubin AST ALT Alkaline Phosphatase Troponin I High Sens < 3.5 < 3.5 B-Natriuretic Peptide < 10 Total Protein Albumin Lipase COVID-19 ([facility]ATRIS) Negative COVID-[employer] Com See Note 09/29/21 21:30 WBC RBC Hgb Hct MCV MCH MCHC RDW Plt Count MPV Immature Gran % (Auto) Neut % (Auto) Lymph % (Auto) [place] % (Auto) Eos % (Auto) Baso % (Auto) Lymph # (Auto) [place] # (Auto) Eos # (Auto) Baso # (Auto) Abs Immat Gran (auto) Absolute Neuts (auto) Absolute Nucleated RBC Nucleated RBC % (auto) PT INR Sodium Potassium Chloride Carbon Dioxide Anion Gap BUN Creatinine Estim Creat Clear Calc Estimated GFR POC Glucose 141 H Random Glucose Calcium Magnesium Total Bilirubin AST ALT Alkaline Phosphatase Troponin I High Sens B-Natriuretic Peptide Total Protein Albumin Lipase COVID-19 ([facility]IS) COVID-19 Clin Com ECG Interpretation: EKG with sinus rhythm at 85/Min; nonspecific ST-T changes. Cannot exclude old anterior infarct. Imaging Radiologist's impression: Impressions Chest X-Ray 09/29/21 14:45 IMPRESSION: Unremarkable chest examination. 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 EKG showing nonspecific changes. Troponins are so far unremarkable. At her age and with the above risk factor profile, she needs an exercise stress test for further evaluation to evaluate for obstructive coronary disease. As she has had numerou s episodes as today, we agreed that we will get this done at the earliest opportunity as an inpatient rather. Otherwise she also has murmurs and known to have tricuspid regurgitation but she also seems to have rather an aortic sclerotic versus stenosis Hence echocardiogram will need to be completed Saturday. Will follow up with you. Procedures Date of Service Date of Service: 09/30/21
[2021-09-30 10:43] LABS: Glucose, Whole Blood 309 mg/dL (60-115)
[2021-09-30] MEDS: Insulin Lispro 100 UNIT/ML 3 ML VIAL SUBCUT ×2 (11:44→20:30)
[2021-09-30 11:53] VITALS: BP 117/64; PULSE 74; RESP 18; TEMP 36.6; O2SAT 97
[2021-09-30 15:53] VITALS: BP 129/74; PULSE 74; RESP 19; TEMP 36.6; O2SAT 99
[2021-09-30 16:26] LABS: Glucose, Whole Blood 102 mg/dL (60-115)
[2021-09-30 19:11] VITALS: BP 131/75; PULSE 74; RESP 16; TEMP 36.3; O2SAT 97
[2021-09-30] MEDS: Acetaminophen 325 MG TABLET 650 MG PO (20:22)
[2021-09-30 21:01] LABS: Glucose, Whole Blood 248 mg/dL (60-115)
[2021-10-01] VITALS: BP 103/56; PULSE 62; RESP 18; TEMP 36.5; O2SAT 98
[2021-10-01 04:00] VITALS: BP 109/56; PULSE 70; RESP 18; TEMP 36.4; O2SAT 98
[2021-10-01 07:24] VITALS: BP 124/70; PULSE 72; RESP 18; TEMP 36.6; O2SAT 97
[2021-10-01 07:44] LABS: Glucose, Whole Blood 126 mg/dL (60-115)
[2021-10-01] MEDS: lisinopriL 10 MG TABLET PO (08:18)
[2021-10-01] MEDS: 0.9 % Sodium Chloride Flush 3 ML SYRINGE IVFLUSH ×2 (08:19→16:30)
[2021-10-01 11:28] VITALS: BP 131/61; PULSE 95; RESP 18; TEMP 36.2; O2SAT 98
[2021-10-01 11:36] LABS: Glucose, Whole Blood 257 mg/dL (60-115)
--- NOTE | 2021-10-01 11:56 | HO.PM.IMPN ---
Subjective Subjective Date of Service: 10/01/21 Interval History: cc: chest pain interval history:resolved Cardiovascular Cardiovascular: Reports no additional cardiovascular complaints Respiratory Respiratory: Reports no additional respiratory complaints Physical Exam Vital Signs: Vital Signs: Last Vital Signs Temp 97.1 F 10/01/21 11:28 Pulse 95 10/01/21 11:28 Resp 18 10/01/21 11:28 BP 131/61 10/01/21 11:28 Pulse Ox 98 10/01/21 11:28 BMI result Body Mass Index 26.4 General: AO X 3, no acute distress Resp: CTA bilateral, no accessory muscles used CVS: S1,S2,RRR GI: soft, non tender, non distended Neuro: motor grossly intact, alert Psych: appropriate affect, appropriate insight Objective Data Active Medications Acetaminophen (Acetaminophen 325 Mg Tablet) 650 mg PO Q6H PRN PRN Reason: Pain, Mild (Pain Scale 1-3) Last Admin: 09/30/21 20:22 Dose: 650 mg Documented by: SUMAN Atorvastatin Calcium (Atorvastatin Calcium 20 Mg Tablet) 20 mg PO MOWEFR [facility] Last Admin: 09/29/21 18:37 Dose: Not Given Documented by: BRAVO Non-Admin Reason: Entered in Error Dextrose (Dextrose 50 % 25 Gm/50 Ml Vial) 25 gm IVPUSH Q15M PRN; Protocol PRN Reason: per Hypoglycemia Standing Ord. Glucose (Glucose Gel 15 Gm Gel..Gram.) 15 gm PO Q15M PRN; Protocol PRN Reason: per Hypoglycemia Standing Ord. Insulin Human Lispro (Insulin Lispro 100 Unit/Ml 3 Ml Vial) 0 unit SUBCUT QIDACHS [facility]; Protocol Last Admin: 10/01/21 07:49 Dose: Not Given Documented by: VALERIA Non-Admin Reason: No Insulin Coverage Lisinopril (Lisinopril 10 Mg Tablet) 10 mg PO DAILY [facility]; Protocol Last Admin: 10/01/21 08:18 Dose: 10 mg Documented by: VALERIA Nitroglycerin (Nitroglycerin 0.4 Mg Tab.Subl) 0.4 mg SUBLINGUAL Q5MX3 PRN PRN Reason: Chest Pain Ondansetron HCl (Ondansetron Hcl 4 Mg/2 Ml Vial) 4 mg IVPUSH Q8H PRN PRN Reason: Nausea and Vomiting Pharmacy Consult (Consult Rx Perform Med Rec) 1 each MISCELLANE ONCE PRN PRN Reason: Consult order Sodium Chloride (0.9 % Sodium Chloride Flush 3 Ml Syringe) 3 ml IVFLUSH QSHIFT [facility] Last Admin: 10/01/21 08:19 Dose: 3 ml Documented by: VALERIA Vitamin D (Cholecalciferol (Vitamin D3) 25 Mcg Tablet) 50 mcg PO MOFR [facility] Labs CBC & Chem 7: 09/29/21 14:45 09/29/21 14:45 Labs: Laboratory Results - last 24 hr 09/30/21 09/30/21 10/01/21 16:21 20:22 07:22 POC Glucose 102 248 H 126 H 10/01/21 11:26 POC Glucose 257 H Assessment and Plan (1) Chest pain: Status: Acute Plan 66F presented with chest pain ?chest pain troponin negative cardio appreciated plan for stress test and echo ?hypertension lisinopril monitor DM with hyperglcemia metformin on hold started ISS ?hyperlipidemia continue Lipitor ?DVT prophylaxis with? Lovenox ?code status full code reason for continued hospitalization:plan for inpatient stress and echo Quality Stroke Does the patient have a stroke diagnosis?: No VTE Prior VTE?: No VTE Risk Level:: Medical - moderate - high VTE Device Contraindication: Treatment Not Indicated VTE Drug Contraindication: N/A - Med Ordered
[2021-10-01] MEDS: Insulin Lispro 100 UNIT/ML 3 ML VIAL SUBCUT ×2 (12:06→21:43)
[2021-10-01 15:27] VITALS: BP 131/64; PULSE 75; RESP 16; TEMP 36.5; O2SAT 97
[2021-10-01 16:26] LABS: Glucose, Whole Blood 135 mg/dL (60-115)
[2021-10-01 21:14] LABS: Glucose, Whole Blood 184 mg/dL (60-115)
[2021-10-01] MEDS: Acetaminophen 325 MG TABLET 650 MG PO (21:20)
[2021-10-01 23:56] VITALS: BP 110/55; PULSE 67; RESP 16; TEMP 36.2; O2SAT 96
[2021-10-02 04:00] VITALS: BP 119/60; PULSE 68; RESP 16; TEMP 36; O2SAT 98
[2021-10-02 07:15] VITALS: BP 135/69; PULSE 79; RESP 18; TEMP 36.6; O2SAT 99
[2021-10-02 07:27] LABS: Glucose, Whole Blood 140 mg/dL (60-115)
[2021-10-02] MEDS: Cholecalciferol (Vitamin D3) 25 MCG TABLET 50 MCG PO (07:42)
[2021-10-02] MEDS: lisinopriL 10 MG TABLET PO (07:42)
[2021-10-02] MEDS: Atorvastatin Calcium 20 MG TABLET PO (07:42)
[2021-10-02] MEDS: 0.9 % Sodium Chloride Flush 3 ML SYRINGE IVFLUSH (07:43)
--- NOTE | 2021-10-02 09:17 | P.PNIM_ITS ---
Subjective Subjective Date of Service: 10/02/21 Interval History: cc: chest pain interval history:resolved Cardiovascular Cardiovascular: Reports no additional cardiovascular complaints Respiratory Respiratory: Reports no additional respiratory complaints Physical Exam Vital Signs: Vital Signs: Last Vital Signs Temp 97.8 F 10/02/21 07:15 Pulse 79 10/02/21 07:15 Resp 18 10/02/21 07:15 BP 135/69 10/02/21 07:15 Pulse Ox 99 10/02/21 07:15 BMI result Body Mass Index 26.4 General: AO X 3, no acute distress Resp:? CTA bilateral, no accessory muscles used CVS: S1,S2,RRR GI: soft, non tender, non distended Neuro:? motor grossly intact, alert Psych: appropriate affect, appropriate insight? Objective Data Active Medications Acetaminophen (Acetaminophen 325 Mg Tablet) 650 mg PO Q6H PRN PRN Reason: Pain, Mild (Pain Scale 1-3) Last Admin: 10/01/21 21:20 Dose: 650 mg Documented by: RAHEL Atorvastatin Calcium (Atorvastatin Calcium 20 Mg Tablet) 20 mg PO MOWEFR [facility] Last Admin: 10/02/21 07:42 Dose: 20 mg Documented by: JENSEN Dextrose (Dextrose 50 % 25 Gm/50 Ml Vial) 25 gm IVPUSH Q15M PRN; Protocol PRN Reason: per Hypoglycemia Standing Ord. Glucose (Glucose Gel 15 Gm Gel..Gram.) 15 gm PO Q15M PRN; Protocol PRN Reason: per Hypoglycemia Standing Ord. Insulin Human Lispro (Insulin Lispro 100 Unit/Ml 3 Ml Vial) 0 unit SUBCUT QIDACHS [facility]; Protocol Last Admin: 10/02/21 07:28 Dose: Not Given Documented by: JENSEN Non-Admin Reason: No Insulin Coverage Lisinopril (Lisinopril 10 Mg Tablet) 10 mg PO DAILY [facility]; Protocol Last Admin: 10/02/21 07:42 Dose: 10 mg Documented by: JENSEN Nitroglycerin (Nitroglycerin 0.4 Mg Tab.Subl) 0.4 mg SUBLINGUAL Q5MX3 PRN PRN Reason: Chest Pain Ondansetron HCl (Ondansetron Hcl 4 Mg/2 Ml Vial) 4 mg IVPUSH Q8H PRN PRN Reason: Nausea and Vomiting Pharmacy Consult (Consult Rx Perform Med Rec) 1 each MISCELLANE ONCE PRN PRN Reason: Consult order Sodium Chloride (0.9 % Sodium Chloride Flush 3 Ml Syringe) 3 ml IVFLUSH QSHIFT [facility] Last Admin: 10/02/21 07:43 Dose: 3 ml Documented by: JENSEN Vitamin D (Cholecalciferol (Vitamin D3) 25 Mcg Tablet) 50 mcg PO MOFR [facility] Last Admin: 10/02/21 07:42 Dose: 50 mcg Documented by: JENSEN Labs CBC & Chem 7: 09/29/21 14:45 09/29/21 14:45 Labs: Laboratory Results - last 24 hr 10/01/21 10/01/21 10/01/21 11:26 16:16 21:07 POC Glucose 257 H 135 H 184 H 10/02/21 07:21 POC Glucose 140 H Assessment and Plan (1) Chest pain: Status: Acute Plan 66F presented with chest pain ?chest pain troponin negative cardio appreciated follow up stress test and echo ?hypertension lisinopril monitor DM with hyperglcemia metformin on hold started ISS ?hyperlipidemia continue Lipitor ?DVT prophylaxis with? Lovenox ?code status full code reason for continued hospitalization:plan for inpatient stress and echo Quality Stroke Does the patient have a stroke diagnosis?: No VTE Prior VTE?: No VTE Risk Level:: Medical - moderate - high VTE Device Contraindication: Treatment Not Indicated VTE Drug Contraindication: N/A - Med Ordered
--- NOTE | 2021-10-02 10:00 | CA_ITS ---
Transthoracic Echocardiogram Patient (Last, First, Middle): Delma Rush M Gender: Female Date of : 1955 Age: 66 Procedure Date: 10/02/2021 Procedure Type: Transthoracic Echocardiogram Location: S3E Height: 160.02 cm Weight: 67.59 kg BSA: 1.71 m2 Heart Rate: bpm BP: 119 / 60 mmHg Director Of Global Sales: LORENZO Carroll MD: Ronal Zhao MD Account Executive Metal[employer]: Sarmad Macdonald MD Symptoms: chest pain, murmur Study Quality: Fair ECG Rhythm: Sinus Conclusions: - 1. Normal LV systolic function with impaired relaxation filling pattern 2. Normal cardiac valvular Doppler 3. Normal RV systolic pressure 4. No gross pericardial effusion Findings Left Ventricle Normal left ventricular size, thickness, and systolic function. The visually estimated ejection fraction is between 55-60%. Spectral Doppler is indicative of an impaired relaxation filling pattern. E/E prime ratio is between 8 and 15 consistent with indeterminate filling pressures. Right Ventricle Normal right ventricular cavity size and systolic function. Atria Both atria are normal in size. There is lipomatous hypertrophy of the interatrial septum. There is no evidence of interatrial shunt. Aortic Valve The aortic valve structure and function is likely normal. There is no aortic valve stenosis. There is no aortic valve regurgitation. Mitral Valve Normal mitral valve structure and function. There is trace mitral valve regurgitation. There is no mitral valve stenosis. Pulmonic Valve The pulmonic valve was not well visualized. Tricuspid Valve Normal tricuspid valve structure. There is mild tricuspid valve regurgitation. The right ventricular systolic pressure is normal. The right ventricular systolic pressure is 32 mmHg. Normal right atrial pressure. There is no evidence of pulmonary hypertension. Great Vessels All visible segments of the aorta are normal in size. The pulmonary artery was not well visualized. Venous The inferior vena cava is normal in size and collapses greater than 50% with inspiration. Pericardium/Pleural There is no evidence of pericardial effusion. Prior Study Comparison No previous study in the last 5 years for comparison Measurements 2D Linear Measurements IVSd: 0.96 0.6-0.9/0.6-1.0 cm LVIDd: 4.19 3.9-5.3/4.2-5.9 cm LVIDd Index: 2.45 2.4-3.2/2.2-3.1 cm/m2 LVIDs: 3.07 2.0-3.6 cm LVPWd: 0.82 0.7-1.1 cm LA Diam: 2.80 2.7-3.8/3.0-4.0 cm LAIDs Index: 1.64 1.5-2.3 cm/m2 LV Mass: 144.34 67-162/88-224 g LV Mass Index: 84.41 43-95/49-115 g/m2 LVOT Diam: 2.00 3.0+(-)1.3 cm 2D Systolic Function EF 4C: 57.70 >55% EF 2C: 49.40 >55% Mitral Valve MV Pk E: 0.76 MV PK A: 1.11 MV Decel Time: 252.00 E/A: 0.70 E'Lateral: 9.25 E'Medial: 6.09 E/E' Med: 12.50 E/E' Lat: 8.20 PHT: 74.00 MVA PHT: 2.97 Decel Falls: 3.03 Aortic Valve AoV Pk Wilver: 1.72 AoV Mn Wilver: 1.25 AoV VTI: 0.36 AoV Pk Grad: 12.00 Aov Mn Grad: 7.00 BEBE Cont.VTI: 1.84 LVOT LVOT Pk Wilver: 1.05 LVOT Mn Wilver: 0.71 LVOT VTI: 0.21 LVOT Pk Grad: 4.00 LVOT Mn Grad: 2.00 LVOT Diam: 2.00 LVOT Area: 3.14 Diastolic Function MV Pk E: 0.76 MV Pk A: 1.11 E/A: 0.70 E'Medial: 6.09 E/E' Med: 12.50 E' Laterial: 9.25 E/E' Lat: 8.20 Right Ventricle TAPSE (mm): 20.40 TVS' Wilver: 10.00 Tricuspid Valve TR Pk Wilver: 2.71 TR Pk Grad: 29.00 RA Press: 3.00 RVSP: 32.00 Great Vessels Aorta Sinus of Valsalva: 2.78 2.0-3.[address] Ridge: 2.67 1.7-3.4 cm Ao Asc: 3.10 2.1-3.4 cm Ao Arch: 2.70 Updated in Other Vendor System with Status of Final Sarmad Macdonald MD electronically signed on 10/02/2021 12:19:11 PM with status of Final
--- NOTE | 2021-10-02 10:46 | CA_ITS ---
Acquisition Time: 2021-10-02 09:32:43 Total Exercise Time: 00:05:00 Test Indications: CP Medications: SEE CHART Protocol: RAQUEL Max HR: 157 BPM 101% of Pred: 155 BPM Max BP: 188/092 mmHG Max Work Load: 7.0 METS Exercise stress test with exercise 5 min of Raquel protocol, with moderate shortness of breath, no chest discomfort, with isolated PAC, with normotensive response to exercise, with artifact at peak making interpretion difficult, possible ischemic changes V4-V6, seen at 13 sec recovery and improve quickly, without ischemic changes in remainder of recovery. Nuclear images pending. Test reviewed with Dr Macdonald Referred By: Titi Jose Overread By: CATHY ROJO
[2021-10-02 11:15] VITALS: BP 151/77; PULSE 98; RESP 18; TEMP 36.4; O2SAT 100
--- NOTE | 2021-10-02 11:17 | P.PNCA_ITS ---
Subjective Subjective Date of Service: 10/02/21 <BERTO Paez - Last Filed: 10/02/21 11:33> 10/02/21 <Sarmad Macodnald MD - Last Filed: 10/02/21 18:50> Principal diagnosis: Chest discomfort, Cardiac risk factors <BERTO Paez - Last Filed: 10/02/21 11:33> Interval history: Cardiology follow up for CP. Seen at 1000 in stress lab. Today she reports that she is feeling well. No recurrent episodes of chest discomfort. No sob at rest, palpitations, dizziness. Steady on feet. Able to complete exercise portion of stress test with moderate shortness of breath, no exertional CP. Nuclear images are pending. <BERTO Paez - Last Filed: 10/02/21 11:33> Review of Systems Review of Systems as above <BERTO Paez - Last Filed: 10/02/21 11:33> Yes all other systems are reviewed and are negative <BERTO Paez - Last Filed: 10/02/21 11:33> Physical Exam Vital Signs: Last Vital Signs Temp 97.8 F 10/02/21 07:15 Pulse 79 10/02/21 07:15 Resp 18 10/02/21 07:15 BP 135/69 10/02/21 07:15 Pulse Ox 99 10/02/21 07:15 BMI result Body Mass Index 26.4 <BERTO Paez - Last Filed: 10/02/21 11:33> Const General: cooperative, healthy appearing, no acute distress, alert and awake <BERTO Paez - Last Filed: 10/02/21 11:33> Orientation/consciousness: patient oriented x3 <BERTO Paez Last Filed: 10/02/21 11:33> Neck Neck: Yes normal visual inspection <BERTO Paez Last Filed: 10/02/21 11:33> Resp Effort & Inspection: normal respiratory effort, able to speak in complete sentences and not labored <BERTO Paez Last Filed: 10/02/21 11:33> Auscultation: clear to auscultation bilaterally, no rales, no rhonchi and no wheezes <JOSÉ MIGUEL PaezC - Last Filed: 10/02/21 11:33> Cardio Rate: regular rate <BERTO Paez - Last Filed: 10/02/21 11:33> Rhythm: regular rhythm <JOSÉ MIGUEL Paez - Last Filed: 10/02/21 11:33> Heart sounds: S1 normal heart sound present and S2 normal heart sound present <Gabriela Armendariz JOSÉ MIGUELC - Last Filed: 10/02/21 11:33> Neuro General: patient oriented x3 <Gabriela Marcello SEMICONDUCTOR EQUIPMENT TECHNICIANC - Last Filed: 10/02/21 11:33> Extrem General: Yes normal to inspection and No edema <Gabriela Armendariz JOSÉ MIGUELC - Last Filed: 10/02/21 11:33> Objective Labs and Meds Result diagrams: : 09/29/21 14:45 09/29/21 14:45 <Gabriela ArmendarizNAMITABernabeC - Last Filed: 10/02/21 11:33> Lab results: Laboratory Results - last 24 hr 10/01/21 10/01/21 10/01/21 11:26 16:16 21:07 POC Glucose 257 H 135 H 184 H 10/02/21 07:21 POC Glucose 140 H <Gabriela Armendariz SEMICONDUCTOR EQUIPMENT TECHNICIAN-C - Last Filed: 10/02/21 11:33> Progress Note: A&P Assessment and plan (1) Precordial chest pain: Status: Acute <Gabriela Armendariz BERTO - Last Filed: 10/02/21 11:33> Assessment and Plan: 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 Has no known CAD hx. Does have multiple cardiac risks including HTN, HLD, DM. Her EKG showed SR, no acute ST/ T wave abn, can't exclude prior anterior infarct. Troponins normal. BNP normal. CX R unremarkable. No recurrent CPs since admit. Echo completed, report pending. Exercise nuclear stress test being done this am. Was able to exercise 5 min with moderate shortness of breath, no CP, with artifact on EKG making interpretation more difficult. Nuclear images are pending. - Tests will be reviewed by Dr Macdonald. If no significant abnormalities, Pt can be discharged. Ongoing risk factor modification including good BP, Blood sugar and lipid control. We will arrange outpt cardiology follow up. 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 Has no known CAD hx. Does have multiple cardiac risks including HTN, HLD, DM. Her EKG showed SR, no acute ST/ T wave abn, can't exclude prior anterior infarct. Troponins normal. BNP normal. CXR unremarkable. No recurrent CPs since admit. Echo completed, report pending. Exercise nuclear stress test being done this am. Was able to exercise 5 min with moderate shortness of breath, no CP, with artifact on EKG making interpretation more difficult. Nuclear images are pending. - Tests will be reviewed by Dr Macdonald. If no significant abnormalities, Pt can be discharged. Ongoing risk factor modification including good BP, Blood sugar and lipid control. We will arrange outpt cardiology follow up. Case discussed with Gabriela Armendariz. Echocardiogram shows normal LV systolic function. Preliminary stress perfusion imaging is within normal limits. Patient can be discharged home today with outpatient follow-up with resting images tomorrow. Will review the final reports. Will follow up in the clinic <Sarmad Macdonald MD - Last Filed: 10/02/21 18:50> (2) Essential hypertension: Status: Acute <BERTO Paez - Last Filed: 10/02/21 11:33> Assessment and Plan: Most readings this admission show good control. BP this am documented as 151/77 which is high for her. Continue on her usual Lisinopril 10mg daily. <BERTO Paez - Last Filed: 10/02/21 11:33> (3) Other and unspecified hyperlipidemia: Status: Acute <BERTO Paez - Last Filed: 10/02/21 11:33> Assessment and Plan: [place] LDL goal < 70 in pt with DM. No recent lipid profile for review. Can be pursued as outpt. Continue atorvastatin. <BERTO Paez - Last Filed: 10/02/21 11:33> (4) Type 2 diabetes mellitus with unspecified complications: Status: Acute <BERTO Paez - Last Filed: 10/02/21 11:33> Assessment and Plan: Hgba1c goal < 7. On insulin sliding scale this admit. Normally on Metformin at home. Being followed by hospitalist, then PCP. <BERTO Paez - Last Filed: 10/02/21 11:33> Fall Risk Details Current Medications: Current Medications Acetaminophen (Acetaminophen 325 Mg Tablet) 650 mg PO Q6H PRN PRN Reason: Pain, Mild (Pain Scale 1-3) Last Admin: 10/01/21 21:20 Dose: 650 mg Documented by: Atorvastatin Calcium (Atorvastatin Calcium 20 Mg Tablet) 20 mg PO MOWEFR [facility] Last Admin: 10/02/21 07:42 Dose: 20 mg Documented by: Dextrose (Dextrose 50 % 25 Gm/50 Ml Vial) 25 gm IVPUSH Q15M PRN; Protocol PRN Reason: per Hypoglycemia Standing Ord. Glucose (Glucose Gel 15 Gm Gel..Gram.) 15 gm PO Q15M PRN; Protocol PRN Reason: per Hypoglycemia Standing Ord. Insulin Human Lispro (Insulin Lispro 100 Unit/Ml 3 Ml Vial) 0 unit SUBCUT QIDACHS [facility]; Protocol Last Admin: 10/02/21 07:28 Dose: Not Given Documented by: Lisinopril (Lisinopril 10 Mg Tablet) 10 mg PO DAILY [facility]; Protocol Last Admin: 10/02/21 07:42 Dose: 10 mg Documented by: Nitroglycerin (Nitroglycerin 0.4 Mg Tab.Subl) 0.4 mg SUBLINGUAL Q5MX3 PRN PRN Reason: Chest Pain Ondansetron HCl (Ondansetron Hcl 4 Mg/2 Ml Vial) 4 mg IVPUSH Q8H PRN PRN Reason: Nausea and Vomiting Pharmacy Consult (Consult Rx Perform Med Rec) 1 each MISCELLANE ONCE PRN PRN Reason: Consult order Sodium Chloride (0.9 % Sodium Chloride Flush 3 Ml Syringe) [facility] Last Admin: 10/02/21 07:43 Dose: 3 ml Documented by: Vitamin D (Cholecalciferol (Vitamin D3) 25 Mcg Tablet) 50 mcg PO MOFR [facility] Last Admin: 10/02/21 07:42 Dose: 50 mcg Documented by: <BERTO Paez - Last Filed: 10/02/21 11:33> Time Spent With Patient Time: Total time spent is greater than 50% in coordination of care (as documented) at patient's floor/unit and/or counseling patient: 25 <BERTO Paez - Last Filed: 10/02/21 11:33> Progress Note: Quality Stroke Does the patient have a stroke diagnosis?: No <BERTO Paez - Last Filed: 10/02/21 11:33> Procedures Date of Service Date of Service: 10/02/21 <BERTO Paez - Last Filed: 10/02/21 11:33>
[2021-10-02 11:24] LABS: Glucose, Whole Blood 260 mg/dL (60-115)
[2021-10-02] MEDS: Insulin Lispro 100 UNIT/ML 3 ML VIAL SUBCUT (12:08)
--- NOTE | 2021-10-02 12:28 | PM.DS ---
DS: Providers Provider Date of Service: 10/02/21 Date of admission: 09/29/21 18:27 Primary care physician: Orville Cadet PA-C Consults: 09/29/21 18:33 Consult to Cardiology Routine Consulting Provider: Titi Jose Reason for consultation: chest pain Has provider been notified: No DS: Diagnosis Discharge Diagnosis (1) Precordial chest pain: Status: Acute (2) Essential hypertension: Status: Acute (3) Other and unspecified hyperlipidemia: Status: Acute (4) Type 2 diabetes mellitus with unspecified complications: Status: Acute DS: Summary Hospital Course Hospital Course: from intiial hpi: Chief Complaint:? chest pressure ?66-year-old female with past medical history of hypertension, type 2 diabetes mellitus, hyperlipidemia and history of tricuspid regurgitation was evaluated by Dr. Bellamy in the past presented to [facility] with 3 separate episodes of midsternal chest pressure that was exertional according to patient she was working and noticed anterior chest heaviness that lasted 1-2 minutes without associated shortness of breath, diaphoresis ,tachycardia she rested symptoms improved she went back to work again had another episode of epigastric discomfort, that also resolved with resting she went back to work and again had 3rd episode of chest heaviness, therefore got evaluated at [place] [facility], she denied associated symptoms of lightheadedness dizziness, syncope, denied associated nausea, vomiting heartburn, acidity, pain was localized with no radiation, initial workup in the ED? showed negative troponin x2, EKG showed nonspecific ST and T-wave? abnormality, unremarkable chest x-ray, due to multiple coronary artery disease risk factors patient is being admitted further evaluation and treatment. hospital course: patient was observed for chest pain. troponins and ekg were negative. She underwent echocardiogram which was unremarkable, stress imaging which was unremarkable. She will follow up outpatient tomorrow for resting images. Time Spent with Patient Time attestation: Total time spent providing and/or coordinating discharge services: Discharge coordination time: Greater than 30 minutes Quality: Safe Use of Opioids Does Pt have an Active Cancer Diagnosis on the Problem List?: No Quality: Stroke Does the patient have a stroke diagnosis?: No Physical Exam Vital Signs: Vital Signs: Last Vital Signs Temp 97.5 F 10/02/21 11:15 Pulse 98 10/02/21 11:15 Resp 18 10/02/21 11:15 BP 151/77 H 10/02/21 11:15 Pulse Ox 100 10/02/21 11:15 BMI result Body Mass Index 26.4 General: AO X 3, no acute distress Resp: CTA bilateral, no accessory muscles used CVS: S1,S2,RRR GI: soft, non tender, non distended Neuro: motor grossly intact, alert Psych: appropriate affect, appropriate insight DS: Data Data Completed and Pending Labs on day of discharge: Laboratory Results - last 24 hr 10/01/21 10/01/21 10/02/21 16:16 21:07 07:21 POC Glucose 135 H 184 H 140 H 10/02/21 11:19 POC Glucose 260 H Discharge Plan Discharge Patient Disposition: Home, Self-Care Discharge Diagnosis: chest pain Referrals: Orville Cadet PA-C [Primary Care Provider] - 1 Week Discharge Medications: Continued (DME) blood sugar diagnostic Strip See Rx Instructions .ROUTE .MEDSUPPLY Qty: 100 0RF Rx Instructions: TEST DAILY (DME) lancets [OneTouch Delica Plus Lancet] 33 gauge misc See Rx Instructions .ROUTE .MEDSUPPLY Qty: 100 2RF Rx Instructions: TEST DAILY atorvastatin 20 mg tablet 20 mg PO MOWEFR 0RF metformin 500 mg tablet extended release 24 hr 1,000 mg PO BIDWM 0RF cholecalciferol (vitamin D3) 50 mcg (2,000 unit) capsule 50 mcg PO MOFR 0RF lisinopril 10 mg tablet 10 mg PO DAILY Qty: 90 0RF (DME) OneTouch Ultra Test Strip See Rx Instructions .ROUTE .MEDSUPPLY Qty: 100 1RF Rx Instructions: As directed Discharge Orders: Discharge Order (Routine); Ordered 10/02/21 Ordered By: Ronal Zhao Diet: advance to usual diet Activity on Discharge: As tolerated Stand Alone Forms: Patient Portal Discharge page Care Plan Goals: manage symptoms Health Concerns: chest pain Plan of Treatment: resting images tomorrow Assessment: see above
--- NOTE | 2021-10-02 14:37 | MHC.CM.PN ---
DC HOME TODAY NO SERVICES PT TO ARRANGE TRANSPORT
== END 2021-10-02 14:19 | disposition home or self-care (01) | DRG 203 ==
LOC: HO.ED 17:51 → HO.EDOVER 18:36 → HO.S3 18:50
PROVIDERS: Physician Assistant Medical; Admitting Provider Hospitalist; Emergency Provider Emergency Medicine; PCP Physician Assistant; Visit Provider Internal Medicine
DX: R07.2 Precordial pain (principal); E11.65 Type 2 diabetes mellitus with hyperglycemia; I10 Essential (primary) hypertension; E78.5 Hyperlipidemia, unspecified; I07.1 Rheumatic tricuspid insufficiency; Z20.822 Contact with and (suspected) exposure to COVID-19; Z88.2 Allergy status to sulfonamides; Z87.891 Personal history of nicotine dependence; Z79.84 Long term (current) use of oral hypoglycemic drugs; Z79.899 Other long term (current) drug therapy
CPT/HCPCS: 36415; 71046; 78452; 80053; 82947; 83690; 83735; 83880; 84484; 85025; 85610; 87635; 93005; 93017; 93306; 99218; 99285; A9500

== ENCOUNTER → 2021-10-11 13:50 | Outpatient (BNVA) | payer OTHER, SELFPAY | PROVIDERS: PCP Physician Assistant; Referring Provider Physician Assistant; Visit Provider Internal Medicine Cardiovascular Disease | DX: Z13.89 Encounter for screening for other disorder (principal) ==

== ENCOUNTER 2021-10-12 05:57 | Outpatient (REF) | payer OTHER, SELFPAY ==
[2021-10-12 07:56] LABS: Estimated Average Glucose 163 mg/dL; Hemoglobin A1c % 7.3 %
[2021-10-12 08:01] LABS: Alanine Aminotransferase 32 U/L (0-31); Albumin Level 4.2 g/dL (3.5-5.0); Alkaline Phosphatase 85 U/L (39-117); Anion Gap 14 (12-20); Aspartate Amino Transferase 23 U/L (5-31); Bilirubin Total 0.6 mg/dL (0.0-1.0); Blood Urea Nitrogen 17 mg/dL (9-16); Calcium 9.9 mg/dL (8.4-10.2); Carbon Dioxide 28 mmol/L (22-29); Chloride 102 mmol/L (96-108); Cholesterol 215 mg/dL; Estimated Glomerular Filt Rate > 60; Glucose Fasting 117 mg/dL (60-99); HDL Cholesterol 49 mg/dL; LDL Cholesterol Calculated 142 mg/dl; Potassium 4.7 mmol/L (3.3-5.1); Sodium 139 mmol/L (135-145); Total Protein 6.7 g/dL (6.5-8.0); Triglycerides 120 mg/dL
[2021-10-12 08:12] LABS: Creatinine Urine 222.09 mg/dL; Microalbum/Creatinine Ratio Ur 14.4 ug/mg cr
[2021-10-12 08:14] LABS: Vitamin D 25-OH Total 35.7 ng/mL (>30)
[2021-10-12 08:24] LABS: TSH reflex Free T4 2.76 uIU/mL (0.32-4.0)
== END 2021-10-12 05:58 | disposition home or self-care (01) ==
LOC: HO.LAB 05:57
PROVIDERS: Absent Provider Nurse Practitioner Family; PCP Physician Assistant; Visit Provider Physician Assistant
DX: I10 Essential (primary) hypertension (principal); E11.9 Type 2 diabetes mellitus without complications
CPT/HCPCS: 36415; 80053; 80061; 82043; 82306; 83036; 84443

== ENCOUNTER → 2021-10-18 07:21 | Outpatient (REF) | payer OTHER, SELFPAY ==
--- NOTE | 2021-10-18 07:25 | HM_ITS ---
* Total monitoring time 6 days and 23 hours. * Underlying rhythm is sinus. Average rate 77/Min; range 56 to 118/Min. * No atrial fibrillation or flutter or AV blocks or pauses. * Rare supraventricular ectopy with minimal burden. * Rare ventricular ectopy with minimal burden. * No patient events. MTDD
== END ==
LOC: HO.CARD 07:21
PROVIDERS: PCP Physician Assistant; Visit Provider Internal Medicine Cardiovascular Disease
DX: R00.2 Palpitations (principal)
CPT/HCPCS: 93242

== ENCOUNTER 2022-02-15 06:23 | Outpatient (REF) | payer OTHER, SELFPAY ==
[2022-02-15 07:39] LABS: Anion Gap 15 (12-20); Blood Urea Nitrogen 15 mg/dL (9-16); Calcium 8.8 mg/dL (8.4-10.2); Carbon Dioxide 28 mmol/L (22-29); Chloride 102 mmol/L (96-108); Estimated Glomerular Filt Rate > 60; Glucose Random 117 mg/dL (60-115); Potassium 4.7 mmol/L (3.3-5.1); Sodium 140 mmol/L (135-145)
== END 2022-02-15 06:24 | disposition home or self-care (01) ==
LOC: HO.LAB 06:23
PROVIDERS: PCP Physician Assistant; Visit Provider Internal Medicine Cardiovascular Disease
DX: R07.2 Precordial pain (principal)
CPT/HCPCS: 36415; 80048

== ENCOUNTER 2022-03-28 06:25 | Outpatient (REF) | payer OTHER, SELFPAY ==
[2022-03-28 07:37] LABS: Hematocrit 41.8 % (37.0-47.0); Mean Corpuscular HGB Conc 33.5 g/dl (31.0-35.0); Mean Corpuscular Hemoglobin 30.1 pg (27.0-33.0); Mean Corpuscular Volume 89.9 fL (80.0-98.0); Mean Platelet Volume 10.2 fL (9.4-12.3); Platelet Count 293 X10*3/uL (160-400); Red Blood Count 4.65 X10*6/uL (4.20-5.50); Red Cell Distribution Width 11.8 % (11.0-16.0); White Blood Count 4.8 X10*3/uL (4.8-10.8)
[2022-03-28 07:45] LABS: Estimated Average Glucose 169 mg/dL; Hemoglobin A1c % 7.5 %
[2022-03-28 08:00] LABS: Alanine Aminotransferase 40 U/L (0-31); Albumin Level 4.5 g/dL (3.5-5.0); Alkaline Phosphatase 84 U/L (39-117); Anion Gap 14 (12-20); Aspartate Amino Transferase 26 U/L (5-31); Bilirubin Total 0.4 mg/dL (0.0-1.0); Blood Urea Nitrogen 14 mg/dL (9-16); Calcium 9.6 mg/dL (8.4-10.2); Carbon Dioxide 28 mmol/L (22-29); Chloride 104 mmol/L (96-108); Cholesterol 204 mg/dL; Estimated Glomerular Filt Rate > 60; Glucose Fasting 165 mg/dL (60-99); HDL Cholesterol 54 mg/dL; LDL Cholesterol Calculated 135 mg/dl; Potassium 4.9 mmol/L (3.3-5.1); Sodium 141 mmol/L (135-145); Total Protein 6.9 g/dL (6.5-8.0); Triglycerides 76 mg/dL
[2022-03-28 08:20] LABS: TSH reflex Free T4 2.19 uIU/mL (0.32-4.0)
== END 2022-03-28 06:26 | disposition home or self-care (01) ==
LOC: HO.LAB 06:25
PROVIDERS: Absent Provider Internal Medicine Cardiovascular Disease; PCP Physician Assistant; Visit Provider Physician Assistant
DX: I10 Essential (primary) hypertension (principal); E11.9 Type 2 diabetes mellitus without complications; E78.5 Hyperlipidemia, unspecified
CPT/HCPCS: 36415; 80053; 80061; 83036; 84443; 85027

== ENCOUNTER → 2022-08-21 08:22 | Outpatient (BNVA) | payer MEDICARE, SELFPAY | PROVIDERS: PCP Internal Medicine; Visit Provider Internal Medicine Cardiovascular Disease | DX: I25.10 Atherosclerotic heart disease of native coronary artery without angina pectoris (principal) | CPT/HCPCS: 99212 ==

== ENCOUNTER 2022-09-15 07:59 | Outpatient (REF) | payer MEDICARE, SELFPAY ==
--- NOTE | ~2022-09-15 | MM_ITS ---
EXAMINATION: MM SCREENING DIGITAL BREAST TOMOSYNTHESIS, BILATERAL CLINICAL INFORMATION: Screening. Asymptomatic. The lifetime risk of breast cancer based on the Tyrer-Cuzick Model is 7%. COMPARISON: Mammography: 09/09/2021, 09/03/2020, 05/17/2018 TECHNIQUE: Digital breast tomosynthesis is performed in both the craniocaudal and mediolateral oblique views along with computer-aided detection (CAD). Synthesized 2D images are generated from the tomosynthesis. FINDINGS: There are scattered areas of fibroglandular density (ACR BI-RADS breast composition Category b). Breast tissue composition borders on heterogeneously dense. Parenchymal pattern is similar to prior studies with similar scattered minor asymmetries. No developing density or architectural abnormality. There are no significant masses, abnormal calcifications, or other abnormalities. Again, there are scattered bilateral round and ductal secretory and vascular calcifications. The axilla are unremarkable. MM/MM tomosynthesis screening BI IMPRESSION: No mammographic evidence of malignancy. ASSESSMENT: BI-RADS 2: Benign RECOMMENDATION: Routine annual mammography screening. This patient's information was entered into a reminder system with a target due date for their next mammogram.
== END 2022-09-15 08:00 | disposition home or self-care (01) ==
LOC: HO.MAMMO 07:59
PROVIDERS: PCP Internal Medicine; Visit Provider Physician Assistant
DX: Z12.31 Encounter for screening mammogram for malignant neoplasm of breast (principal)
CPT/HCPCS: 77063; 77067

== ENCOUNTER 2023-01-07 13:06 | Outpatient (REF) | payer MEDICARE, SELFPAY ==
[2023-01-07 13:29] VITALS: BMI 26.9
[2023-01-07 13:30] VITALS: BP 145/70; PULSE 75; RESP 16; TEMP 36.6; O2SAT 97
[2023-01-07 14:35] VITALS: BP 156/80; PULSE 80; RESP 18; O2SAT 97
== END 2023-01-07 13:07 | disposition home or self-care (01) ==
LOC: HO.MS 13:06
PROVIDERS: PCP Internal Medicine; Visit Provider Ophthalmology
DX: H11.441 Conjunctival cysts, right eye (principal)
CPT/HCPCS: 88304

== ENCOUNTER 2023-08-27 08:23 | Outpatient (AMB) | payer MEDICARE, SELFPAY ==
--- NOTE | 2023-08-27 08:25 | MHC.OFFVIS ---
Intake Vital Signs 08/27/23 08:39 Height 5 ft 3 in Weight 147 lb 11.355 oz BMI 26.2 BP 132/70 Blood Pressure Location Lt brachial Position Sitting Pulse 78 Intake Visit Reasons: 1 yr f/up Intake Note: 1 year follow-up with ekg c/o some left sided chest discomfort Marketing Proposal Specialist Required: No Allergies Sulfa (Sulfonamide Antibiotics) Allergy (Unknown, Verified 06/21/22 09:15) rash all over body sulfamethoxazole [From Bactrim] Allergy (Unknown, Verified 06/21/22 09:15) rash all over body trimethoprim [From Bactrim] Allergy (Unknown, Verified 06/21/22 09:15) rash all over body glipizide Adverse Reaction (Intermediate, Verified 06/21/22 09:15) hypoglycemia Medication List - Last Reconciled 08/27/23 by Sarmad Macdonald MD amlodipine 2.5 mg PO DAILY aspirin 81 mg PO DAILY atorvastatin 40 mg PO DAILY 90 days blood sugar diagnostic TEST DAILY blood sugar diagnostic ([place]uch Ultra Test strips) As directed cholecalciferol (vitamin D3) 50 mcg PO MOFR glimepiride 1 mg PO DAILY 90 days lancets (NexessTouch Delica Plus Lancet) TEST DAILY lisinopril 10 mg PO DAILY metformin ER 1,000 mg (2 x 500 mg) PO BID 30 days HPI HPI Comments History of Present Illness Details Delma comes for follow-up. This is a 1 year follow-up. She denies any significant exertional symptoms. Denies any exertional chest pain or shortness of breath that is worsening. Recently started exercising. Her she still continues to have upper chest discomfort which she describes as a twinge the can last up to 20 minutes mostly happening at resting time. This happened while she was waiting in the waiting room an EKG done right now shows no acute ST T wave changes. She has been taking all her medications. Diabetes has been tough to control. Blood pressure is well controlled. Not sure about her LDL cholesterol. [facility] Medical History Essential hypertension Other and unspecified hyperlipidemia Type 2 diabetes mellitus with unspecified complications Surgical History History of abdominal surgery History of arthroscopy of left knee History of cervical polypectomy History of section History of colonoscopy History of vocal cord polypectomy Family History Father Lung cancer Hypertension High cholesterol CAD (coronary artery disease) Mother Lung cancer Hypertension Stroke High cholesterol Son No problems noted. Daughter Asthma Hypothyroid Maternal Grandmother Diabetes Hypertension Stroke Maternal Grandfather No problems noted. Paternal Grandmother CAD (coronary artery disease) Hypertension Sister Melanoma Mental health disorder Social History Household Members: Other Housing: House Alcohol intake: current Alcohol intake frequency: a few times a week Alcohol type: beer Patient Tobacco Use Status: Former Tobacco user Tobacco use type: Cigarette e-Cigarette/Vaping Use: Former Use Second Hand Smoke Exposure: No Advance Directives Date on File: 09/30/21 service: No Current occupational status: employed Current occupational exposures/hazards: No Cognitive needs: No Hearing needs: Yes Vision needs: Yes Review of Systems Const Denies chills, Denies fatigue, Denies fever(s), Denies frequent falls, Denies weakness, Denies weight gain and Denies weight loss ENT Denies dizziness Card Denies chest pain, Denies leg edema, Denies lightheadedness, Denies palpitations, Denies dyspnea, Denies dyspnea on exertion, Denies orthopnea and Denies other (loss of consciousness) Resp Denies cough, Denies dyspnea and Denies dyspnea on exertion GI Denies hematochezia and Denies change in stool character Musc Denies abnormal gait, Denies muscle weakness, Denies numbness, Denies radiating pain into limb and Denies tingling Neuro Denies abnormal gait, Denies dizziness, Denies frequent falls, Denies numbness, Denies tingling and Denies weakness Endo Denies fatigue and Denies palpitations Physical Exam Vital Signs: Last Vital Signs Pulse 78 08/27/23 08:39 BP 132/70 08/27/23 08:39 BMI result Body Mass Index 26.2 Const General: cooperative, healthy appearing, comfortable and no acute distress Orientation/consciousness: patient oriented x3 Neck Neck: Yes normal visual inspection Resp Effort & Inspection: normal respiratory effort Auscultation: clear to auscultation bilaterally, no crackles, no rales, no rhonchi and no wheezes Cardio Jugular venous distension: no JVD Rate: regular rate Rhythm: regular rhythm Heart sounds: S1 normal heart sound present, S2 normal heart sound present, no murmurs and no rubs Neuro General: patient oriented x3 Extrem General: Yes normal to inspection Psych Appearance: grossly normal Mental Status: mental status grossly normal Speech and movement: Normal speech and movement present Office Procedures EKG Details: EKG shows normal sinus rhythm with low-voltage QRS at 78 beats per minute [id number], Complete Assessment & Plan Assessment & Plan (1) CAD (coronary artery disease): Code(s): I25.10 - Atherosclerotic heart disease of [place] coronary artery without angina pectoris Qualifiers: Coronary Disease-Associated Artery/Lesion type: [place] artery [place] vs. transplanted heart: [place] heart Associated angina: without angina Qualified Code(s): I25.10 - Atherosclerotic heart disease of [place] coronary artery without angina pectoris Plan: Nonobstructive CAD with precordial chest discomfort which appears to be nonischemic in nature. Question musculoskeletal. Patient does not have any exertional symptoms. She is taking all her medications. Although LDL is currently not well optimized at 97 mg/dL. Will add Zetia 10 mg to regimen. Follow-up lipid panel and CRP in 3 months. Blood pressure is currently well optimized. Continue current therapy. Importance of good blood pressure control was discussed. Target goal blood pressure less than 130/84. Target goal hemoglobin A1c less than 7%. Encouraged to continue to participate in regular physical activity. Advised to call me with any exertional symptoms. Will follow up in the clinic in 1 year's time, sooner p.r.n.. Thank you for allowing me to partake in the care Orders: Orders Lipid Panel 3 Months I25.10 - Atherosclerotic heart disease of [place] coronary artery without angina pectoris CRP High Sensitivity 3 Months E78.5 - Hyperlipidemia, unspecified, I25.10 - Atherosclerotic heart disease of [place] coronary artery without angina pectoris Medications: New ezetimibe 10 mg PO DAILY 30 tabs 5RF I25.10 - Atherosclerotic heart disease of [place] coronary artery without angina pectoris Coding Level of Care Code Est Pt Level 3 (70356) Diagnoses Coronary artery disease involving [place] coronary artery of [place] heart without angina pectoris I25.10 Coronary Disease-Associated Artery/Lesion type: [place] artery [place] vs. transplanted heart: [place] heart Associated angina: without angina CPT Codes EKG - CPT: 69504-[id number], Complete ([id number])
[2023-08-27 08:39] VITALS: BP 132/70; PULSE 78; BMI 26.2
== END 2023-08-27 09:04 | disposition home or self-care (01) ==
PROVIDERS: PCP Internal Medicine; Visit Provider Internal Medicine Cardiovascular Disease
DX: I25.10 Atherosclerotic heart disease of native coronary artery without angina pectoris (principal)
CPT/HCPCS: 93010; 99213

== ENCOUNTER → 2023-08-27 08:23 | Outpatient (BNVA) | payer MEDICARE, SELFPAY | PROVIDERS: Visit Provider Internal Medicine Cardiovascular Disease | DX: I25.10 Atherosclerotic heart disease of native coronary artery without angina pectoris (principal) | CPT/HCPCS: 93005; 99212 ==

== ENCOUNTER 2023-09-21 07:41 | Outpatient (REF) | payer MEDICARE, SELFPAY ==
--- NOTE | ~2023-09-21 | MM_ITS ---
EXAMINATION: MM SCREENING DIGITAL BREAST TOMOSYNTHESIS, BILATERAL CLINICAL INFORMATION: Screening. Asymptomatic. COMPARISON: Mammography: 09/15/2022, 09/09/2021, 09/03/2020, 05/17/2018. TECHNIQUE: Digital breast tomosynthesis is performed in both the craniocaudal and mediolateral oblique views along with computer-aided detection (CAD). Synthesized 2D images are generated from the tomosynthesis. FINDINGS: The breasts are heterogeneously dense, which may obscure small masses (ACR BI-RADS breast composition Category c). Again, there are scattered bilateral round and ductal secretory and vascular calcifications. No suspicious mass, suspicious grouped calcifications, or developing areas of architectural distortion. The parenchymal pattern is unchanged from prior exams. The skin and axilla are normal in appearance. MM/MM tomosynthesis screening BI IMPRESSION: -No mammographic evidence of malignancy. -Stable benign findings. ASSESSMENT: BI-RADS BI-RADS 2 - Benign Findings RECOMMENDATION: Routine annual mammography screening. 1 year F/U This examination should not preclude the clinical evaluation of a suspicious palpable abnormality. This patient's information was entered into a reminder system with a target due date for their next mammogram.
== END 2023-09-21 07:42 | disposition home or self-care (01) ==
LOC: HO.MAMMO 07:41
PROVIDERS: PCP Internal Medicine; Referring Provider Obstetrics & Gynecology Female Pelvic Medicine and Reconstructive Surgery; Visit Provider Internal Medicine
DX: Z12.31 Encounter for screening mammogram for malignant neoplasm of breast (principal)
CPT/HCPCS: 77063; 77067

== ENCOUNTER → 2023-09-21 07:45 | Outpatient (BNV) | payer MEDICARE, SELFPAY | PROVIDERS: PCP Internal Medicine; Referring Provider Obstetrics & Gynecology Female Pelvic Medicine and Reconstructive Surgery; Visit Provider Radiology Diagnostic Radiology | DX: Z12.31 Encounter for screening mammogram for malignant neoplasm of breast (principal) | CPT/HCPCS: 77063; 77067 ==

== ENCOUNTER 2024-08-07 09:15 | Emergency (ER) | payer MEDICARE, SELFPAY ==
--- NOTE | ~2024-08-07 | XR_ITS ---
EXAMINATION: XR RIBS, RIGHT CLINICAL INFORMATION: fall COMPARISON: Chest x-ray dated September 29, 2021. TECHNIQUE: 3 views of the right ribs were obtained. AP chest. FINDINGS: No consolidation, pleural effusion or pneumothorax. Cardiomediastinal silhouette size is normal. Multilevel thoracic spondylosis. No acute cortical disruption within the ribs of the right hemithorax. Degenerative changes in the shoulders. XR/XR ribs RT min 3V w CXR1V IMPRESSION: No acute rib fracture, right hemithorax. No acute airspace disease. Electronically signed by: José Miguel Biswas MD 08/07/2024 10:04 AM [facility]
--- NOTE | ~2024-08-07 | CT_ITS ---
EXAMINATION: CT CHEST WITHOUT IV CONTRAST INDICATION: fall, right lateral rib pain COMPARISON: Correlation is made with plain films of the chest and right ribs performed earlier in the day. TECHNIQUE: Helical CT scan of the chest was performed without intravenous contrast. Coronal and sagittal reformatted images were generated and reviewed. This CT exam was performed with one or more of the following dose reduction techniques: automated exposure control, adjustment of the mA and/or kV according to patient size, use of iterative reconstruction technique. DLP: 260 mGy-cm CHEST: THYROID: The thyroid is unremarkable. LUNGS: The lungs are clear. MEDIASTINUM: There is no mediastinal lymphadenopathy. SUSAN: Evaluation of the hilar regions is limited by lack of intravenous contrast material. CARDIOVASCULATURE: The heart is normal in size. There is no pericardial effusion. The thoracic aorta is normal in caliber. DEGREE OF CORONARY CALCIFICATION: none PLEURA: There is no pleural effusion. No pneumothorax. MAIN AIRWAYS: The mainstem bronchi and proximal branches are patent. AXILLA: There is no axillary lymphadenopathy. BONES AND SOFT TISSUES: There is very subtle angulation of the anterolateral aspects of the right 4th through 8th ribs, suggestive of nondisplaced fractures. UPPER ABDOMEN: There is a small hiatal hernia. The visualized portions of the liver, spleen, and adrenals have an unremarkable appearance. CT/CT chest wo IV con IMPRESSION: Probable nondisplaced fractures of the right 4th through 8th ribs. No pneumothorax. Electronically signed by: Sanket Hernández MD 08/07/2024 11:32 AM [facility] [place]
--- NOTE | ~2024-08-07 | CT_ITS ---
EXAMINATION: CT HEAD WITHOUT CONTRAST CLINICAL INFORMATION: fall, head inj COMPARISON: None available. TECHNIQUE: Contiguous axial imaging was performed from the skull base to vertex without intravenous administration of contrast. This CT examination was performed using dose optimization techniques as appropriate, variously including the following: *Automated exposure control *Adjustment of mA and/or kV according to patient size (this includes techniques or standardized protocols for targeted exams where dose is matched to indication/reason for exam; i.e. extremities or head) *Use of iterative reconstruction technique DLP: 623.72 mGy-cm FINDINGS: Bony calvarium is intact. Skull base is intact. No acute intracranial hemorrhage, mass effect, midline shift, hydrocephalus or herniation. Mendez-white matter differentiation is normal. Posterior cranial fossa contents demonstrated no acute intracranial hemorrhage or mass effect. Calcified plaques in the V4 segments of the vertebral arteries and cavernous supracavernous segments both ICAs. No air-fluid levels in the included paranasal sinuses. Mucosal thickening in the ethmoid air cells and maxillary sinuses. Tympanic cavities and mastoid cells are aerated. CT/CT head/brain wo IV con IMPRESSION: No acute fracture, bony calvarium. No acute intracranial hemorrhage. Electronically signed by: José Miguel Biswas MD 08/07/2024 11:45 AM [facility]
[2024-08-07 09:35] VITALS: BP 182/72; PULSE 90; RESP 19; TEMP 36.6; O2SAT 98; BMI 26.2
--- NOTE | 2024-08-07 10:20 | ED_ITS ---
HPI - Fall General Chief Complaint: Fall Stated Complaint: Fall 08/07/24 Time Seen by Provider: 08/07/24 10:11 Source: patient Mode of arrival: ambulatory Limitations: no limitations History of Present Illness ED Provider: Yelena Gloria NP HPI Narrative: Patient is a 69-year-old female presents emergency department for evaluation after mechanical slip and fall on ice prior at 08:15. She reports no preceding symptoms it was strictly mechanical in nature. She denies any loss of consciousness. She is on low-dose aspirin otherwise no anticoagulants. There was however head strike and she fell landing onto her right side endorsing pain to the right back, just below the scapula and along the lateral chest exacerbates with ambulance movement/deep inspiration. Denies anterior chest pain, shortness of breath, dyspnea on exertion, dizziness, lightheadedness, vision changes, neck pain, neck stiffness. Related Data Home Medications ?Medication ?Instructions ?Recorded ?Confirmed cholecalciferol (vitamin D3) 50 50 mcg PO MOFR 03/09/21 08/04/24 mcg (2,000 unit) capsule aspirin 81 mg tablet,delayed 81 mg PO DAILY 05/02/22 08/04/24 release calcium carbonate (Tums Extra 300 mg PO BID 08/04/24 08/04/24 Strength Smoothies) tpwtpfphsujl-vfoefdmp-wssurp tablet 1 tab PO DAILY 08/04/24 08/04/24 Previous Rx's ?Medication ?Instructions ?Recorded blood sugar diagnostic #100 ea 10/24/20 atorvastatin 40 mg tablet 40 mg PO DAILY 90 days #90 tabs 07/25/22 blood sugar diagnostic (OneTouch #100 ea 07/25/22 Ultra Test strips) lancets 33 gauge ([facility] #100 ea 07/25/22 Plus Lancet) lisinopril 10 mg tablet 10 mg PO DAILY #90 tabs 07/25/22 metformin 500 mg tablet,extended 1,000 mg (2 x 500 mg) PO BID 30 07/25/22 release 24 hr days #120 tabs glimepiride 1 mg tablet 1 mg PO DAILY 90 days #90 tabs 01/30/23 amlodipine 2.5 mg tablet 2.5 mg PO DAILY 90 days #90 tabs 01/28/24 ezetimibe 10 mg tablet 10 mg PO DAILY #90 tabs 02/07/24 oxycodone 5 mg tablet 5 mg PO Q6H PRN pain #10 tabs 08/07/24 Allergies Allergy/AdvReac Type Severity Reaction Status Date / Time Sulfa (Sulfonamide Allergy Unknown rash all Verified 08/07/24 09:37 Antibiotics) over body sulfamethoxazole Allergy Unknown rash all Verified 08/07/24 09:37 [From Bactrim] over body trimethoprim [From Bactrim] Allergy Unknown rash all Verified 08/07/24 09:37 over body glipizide AdvReac Intermediate hypoglycemi Verified 08/07/24 09:37 a Review of Systems Review of Systems: Yes all other systems are reviewed and are negative PMFSH Past Medical History Attestation statement: The following information was validated with the patient. Source: old records reviewed Medical History Other and unspecified hyperlipidemia Essential hypertension Type 2 diabetes mellitus with unspecified complications Surgical History History of abdominal surgery History of vocal cord polypectomy History of cervical polypectomy History of colonoscopy History of arthroscopy of left knee History of section Family History Family History Father Lung cancer Hypertension High cholesterol CAD (coronary artery disease) Mother Lung cancer Hypertension Stroke High cholesterol Son No problems noted. Daughter Asthma Hypothyroid Maternal Grandmother Diabetes Hypertension Stroke Maternal Grandfather No problems noted. Paternal Grandmother CAD (coronary artery disease) Hypertension Sister Melanoma Mental health disorder Social History Social History Household Members: Other Housing: House Are you a primary companion caregiver to a significant other at home: No Do you presently have visiting nurse or other home services: No Unable to assess alcohol history related to: Unknown Alcohol intake: current Alcohol intake frequency: a few times a month Alcohol type: beer Patient Tobacco Use Status: Former Tobacco user Tobacco use type: Cigarette e-Cigarette/Vaping Use: Former Use Second Hand Smoke Exposure: No Use of substances other than those prescribed or required for medical reasons: Unknown Advance Directives: Yes Advance Directives on File: Yes Advance Directives Date on File: 09/30/21 Do you have a plan to hurt others: No Plan service: No Current occupational status: employed Current occupational exposures/hazards: No Cognitive needs: No Hearing needs: Yes Vision needs: Yes Physical Exam Vital Signs: Vital Signs: Last Vital Signs Temp 98 F 08/07/24 09:35 Pulse 90 08/07/24 09:35 Resp 19 08/07/24 09:35 BP 182/72 H 08/07/24 09:35 Pulse Ox 98 08/07/24 09:35 O2 Del Method Room Air 08/07/24 09:35 BMI result Body Mass Index 26.2 Appearance: Alert.?Oriented to person, place and time. No acute distress.?Normal affect. Head: Normocephalic Eyes: Pupils equal, round and reactive to light. EOMI. Conjunctiva and sclera normal? No Wells sign noted. No raccoon eyes noted ENT: No septal hematoma, nares patent bilaterally. External auditory canal normal tympanic membrane pearly rose and intact bilaterally. Dentition normal, no fractured teeth. No lesions or lacerations of oropharynx. Uvula midline. Moist mucous membranes. Neck: Normal inspection.? Neck supple.??No palpable tenderness, step-off, deformities. CVS: Heart sounds normal. Normal heart rate and rhythm.? Pulses normal.?? Respiratory: No respiratory distress.? Lung sounds clear to auscultation bilaterally. No palpable deformities of the chest wall, no crepitus.?? Abdomen: Soft and non-tender. Normoactive bowel sounds. ?? Skin: Skin warm and dry.? Normal skin color.? Extremities: No lower extremity edema.? Neuro: Moves all extremities spontaneously. Sensation intact bilaterally. CN II- XII intact. No focal neuro deficits. Ambulatory with a steady gait. NIH Stroke Scale Internal: Initial- Upon Arrival Level of Consciousness: Alert Level of Consciousness Questions: Answers both questions correctly Level of Consciousness Commands: Performs both tasks correctly Best Gaze: Normal Visual: No visual loss Facial Palsy: Normal Motor Arm (Right): No drift Motor Arm (Left): No drift Motor Leg (Right): No drift Motor Leg (Left): No drift Limb Ataxia: Absent Sensory: Normal Best Language: No aphasia Dysarthia: Normal Extinction and Inattention: No abnormality Score: 0 Course Reevaluation(s) Reevaluation #1: Chest CT revealing nondisplaced fracture to right 4th through 8th rib; 5 consecutive ribs in total, no pneumothorax. She is overall well-appearing, no hypoxia or tachypnea. She is amenable to acetaminophen for analgesia at this time she really would like to avoid any additional analgesia, incentive spirometer, on conversation she is amenable to rib wrapping, as studies have recently shown not to result in pneumonia, as this case was discussed with my attending Dr. Estrada. I will consult with thoracic, Dr. Winchester to have consult ation as to whether he would suggest admission for observation pain management or if she may be discharged home with return precautions. Head CT is without acute intracranial pathology remains without any focal neurological deficits. Time: 12:00 Reevaluation #2: Thoracic; Dr. Winchester advises no rib wrapping, incentive spirometer, that she may be discharged home with analgesia and plan for outpatient follow-up in his office next week. Medical Decision Making Medical Decision Making MDM Narrative: Patient is a 69-year-old female past medical history of hypertension, type 2 diabetes, hyperlipidemia, tricuspid regurgitation, cataracts who presents emergency department for evaluation after mechanical slip and fall as per HPI. Overall well-appearing, nontoxic, afebrile. No focal neurological deficits. No obvious head injury scalp laceration or hematoma. Endorsing pain to the right posterior chest wall, no palpable crepitus or osseous deformity, no hypoxia or tachypnea. She arrives hypertensive 182/72, admits compliance with her antihypertensives this morning. XR of the chest and ribs was obtained prior to my assumption of care, I do not see evidence of acute rib fracture present. However given her age and mechanism of injury, low-dose aspirin obtaining CT of the head to exclude ICH, SDH in addition CT of the chest to evaluate further for rib fracture. Discussed pain may be secondary contusion versus fracture. Declines analgesic at this time. Differential Diagnosis Differential Diagnoses: The differential diagnosis associated with the pre sentation includes (See narrative above) Admission/Observation Consideration of admission/observation: Escalation of care including admission/observation considered (See narrative above) Independent Interpretation I performed an independent interpretation of an: Plain X-Ray (No apparent rib fracture) and CT Scan (No ICH, SDH) Radiology Impression Discussion of test interpretation with radiology: I have reviewed the radiologist's reading. Radiologist Impression: XR/XR ribs RT min 3V w CXR1V IMPRESSION: No acute rib fracture, right hemithorax. No acute airspace disease. CT/CT chest wo IV con IMPRESSION: Probable nondisplaced fractures of the right 4th through 8th ribs. No pneumothorax. CT/CT head/brain wo IV con IMPRESSION: No acute fracture, bony calvarium. No acute intracranial hemorrhage. External Record Review External record reviewed: Outpatient record and Other I attest that I have reviewed patients [place], and at the time prescribing the patient a controlled substance is appropriate based off of patients diagnosis and treatment plan. Chronic Conditions Patient?s care impacted by: Other (See narrative above) Discharge Plan Discharge Clinical Impression: Multiple rib fractures Qualifiers: Encounter type: initial encounter Fracture type: closed Laterality: right Qualified Code(s): S22.41XA - Multiple fractures of ribs, right side, initial encounter for closed fracture Patient Disposition: Home, Self-Care Instructions: How to Use an Incentive Spirometer (ED), Rib Fracture (ED) Additional Instructions: As discussed, your CT imaging shows that you have fractured ribs 4 through 8, total of 5 ribs. You can take Tylenol 500 mg, 2 tablets (1,000mg) every 4-6 hours as needed for pain, but not to exceed 3 doses daily (3,000mg). A prescription for oxycodone has been sent to your pharmacy to use as needed for pain that is unrelieved by acetaminophen. This is a narcotic medication. It may make you drowsy. You should not drive, drink alcohol, or work while taking this medication. Use a pillow to brace the chest wall during episodes of cough or sneezing. Use the incentive spirometer as instructed to be sure that you are having good aeration to the lungs and prevent any collapse. You may return with any new or worsening symptoms or concerns which includes but is not limited to increasing pain not managed by oral medications, shortness of breath, difficulty breathing. Contact information for thoracic surgery office has been provided, please contact their office to arrange for a follow-up visit next week. ? Prescriptions: New oxycodone 5 mg tablet 5 mg PO Q6H PRN (Reason: pain) Qty: 10 0RF Rx Instructions: Partial Fill upon patient request. No Action (DME) blood sugar diagnostic Strip See Rx Instructions .ROUTE .MEDSUPPLY Qty: 100 0RF Rx Instructions: TEST DAILY (DME) OneTouch Ultra Test Strip See Rx Instructions .ROUTE .MEDSUPPLY Qty: 100 1RF Rx Instructions: As directed (DME) lancets [OneTouch Delica Plus Lancet] 33 gauge misc See Rx Instructions .ROUTE .MEDSUPPLY Qty: 100 2RF Rx Instructions: TEST DAILY atorvastatin 40 mg tablet 40 mg PO DAILY 90 Days Qty: 90 1RF lisinopril 10 mg tablet 10 mg PO DAILY Qty: 90 1RF metformin 500 mg tablet extended release 24 hr 1,000 mg PO BID 30 Days Qty: 120 1RF glimepiride 1 mg tablet 1 mg PO DAILY 90 Days Qty: 90 1RF Rx Instructions: Take with largest meal of the day amlodipine 2.5 mg tablet 2.5 mg PO DAILY 90 Days Qty: 90 3RF ezetimibe 10 mg tablet 10 mg PO DAILY Qty: 90 2RF Rx Instructions: please obtain fasting blood work Centrum Silver Tablet 1 tab PO DAILY Tums Extra Strength Smoothies 300 mg (750 mg) Tablet,Chewable 300 mg PO BID cholecalciferol (vitamin D3) 50 mcg (2,000 unit) capsule 50 mcg PO MOFR aspirin 81 mg tablet,delayed release (DR/EC) 81 mg PO DAILY Referrals: Kalpana Washington MD [Primary Care Provider] - Braxton Winchester MD [Physician] - Print Language: Sinhala
--- OUTSIDE RECORDS SUMMARY | 2024-08-07 11:17 | XMS_ITS | Continuity of Care Document ---
Author Organization [facility] Address [address] [place] [address]- Care Team Providers Care Nurse Head Name Role Phone Padmini MCCYO, Kalpana Simpson Primary Care Physician ( [phone] Encounter [facility] Date(s): 07/28/24 - 08/04/24 [facility] [address] [place] [id number] Attending Physician: Cal Sneed MD Referring Physician: Christopher Bey MD Encounter Type: Office Visit Allergies, Adverse Reactions, Alerts Substance Criticality Severity Reaction Reaction Severity Status sulfa drugs Unknown Active Bactrim rash Active Immunizations Given and Recorded Vaccine Date Status Refusal Reason Influenza Virus Vaccine (oldterm) 06/06/24 Recorde d zoster vaccine, inactivated 05/16/23 Recorded zoster vaccine, inactivated 03/15/23 Recorded influenza virus vaccine, inactivated 04/24/23 Dony rded influenza virus vaccine, inactivated 04/25/22 Dony rded influenza virus vaccine, inactivated 04/04/21 Dony rded influenza virus vaccine, inactivated 04/06/20 Dony rded influenza virus vaccine, inactivated 04/08/19 Dony rded influenza virus vaccine, inactivated 04/22/18 Dony rded influenza virus vaccine, inactivated 05/21/17 Dony rded influenza virus vaccine, inactivated 04/23/16 Dony rded influenza virus vaccine, inactivated 03/31/15 Dony rded SARS-CoV-2 (COVID-19) mRNA BNT-162b2 vac 03/26/21 Recorded SARS-CoV-2 (COVID-19) mRNA BNT-162b2 vac 06/30/20 Recorded SARS-CoV-2 (COVID-19) mRNA-1273 vaccine 07/26/20 R ecorded pneumococcal 23-valent vaccine 06/15/20 Recorded tetanus/diphtheria/pertussis, acel(Tdap) 06/15/20 Recorded tetanus-diphtheria toxoids (Td) 03/28/09 Recorded hepatitis B adult vaccine 03/17/01 Recorded Medications amLODIPine 2.5 mg oral tablet 2.5 mg, 1, tablet, By Mouth, Daily, # 90 tablet, Refills 0, Maintenance, 09/06/22 10:12:00 AM EST, Partial fill upon patient request if the prescription is for a schedule II opioid drug. Start Date: 09/06/22 Status: Ordered Quantity: 90.0 Unit: tablet Repeat number: 1 aspirin 81 mg oral delayed release tablet 81 mg, 1, tablet, By Mouth, Daily, # 90 tablet, Refills 0, Maintenance, 09/06/22 10:11:00 AM EST, Partial fill upon patient request if the prescription is for a schedule II opioid drug. Start Date: 09/06/22 Status: Ordered Quantity: 90.0 Unit: tablet Repeat number: 1 atorvastatin 40 mg oral tablet 1 tablet, By Mouth, Daily, # 90 tablet, 1 Refills, Maintenance, 06/12/24 3:34:00 PM EST, [id number], 160, cm, 03/26/24 9:01:00 EDT, Height, 68.3, kg, 03/26/24 8:36:00 EDT, Dry Weight Start Date: 06/12/24 Status: Ordered Quantity: 90.0 Unit: tablet Repeat number: 1 Centrum Silver 1 tablet, By Mouth, Daily, 0 Refills, Maintenance, 01/10/23 1:54:00 PM EDT, Partial fill upon patient request if the prescription is for a schedule II opioid drug. Start Date: 01/10/23 Status: Ordered Repeat number: 1 ezetimibe 10 mg oral tablet 1 tablet = 10 mg, By Mouth, Daily, 0 Refills, Maintenance, 01/13/24 2:34:00 PM EDT, Partial fill upon patient request if the prescription is for a schedule II opioid drug. Start Date: 01/13/24 Status: Ordered Repeat number: 1 Freestyle Lite Lancets See Instructions, # 200 each, Refills 5, Tot. Refills 5, Maintenance, DX: E11.9. Test BS 1 x a day,09/07/22 1:09:00 PM EST, Supply, 160, cm, 09/06/22 10:03:00 EST, Height, 67.7, kg, 02/23/22 6:47:00 EDT, Dry Weight Start Date: 09/07/22 Status: Ordered Quantity: 200.0 Unit: each Repeat number: 6 FREESTYLE LITE TEST STRIP FREESTYLE LITE TEST STRIP, See Instructions, # 200 Unknown, 1 Refills, Maintenance, USE DIRECTEDTO CHECK BLOOD SUGARONCE A DAY. DX- E11.9, 06/12/24 3:35:00 PM EST, 160, cm, 03/26/24 9:01:00 EDT, Height, 68.3, kg, 03/26/24 8:36:00 EDT, Dry Weight Start Date: 06/12/24 Status: Ordered Quantity: 200.0 Unit: Unknown Repeat number: 1 FREESTYLE LITE TEST STRIP FREESTYLE LITE TEST STRIP, See Instructions, # 200 Unknown, 1 Refills, Maintenance, USE DIRECTEDTO CHECK BLOOD SUGAR ONCE A DAY. DX- E11.9, 01/28/24 3:13:00 PM EDT, 160, cm, 01/15/24 9:18:00 EDT, Height, 67.7, kg, 02/23/22 6:47:00 EDT, Dry Weight Start Date: 01/28/24 Status: Ordered Quantity: 200.0 Unit: Unknown Repeat number: 1 glimepiride 1 mg oral tablet 1 tablet = 1 mg, By Mouth, Daily, # 90 tablet, 1 Refills, Maintenance, 04/27/24 10:36:00 AM EDT, Tablet, [facility]/pharmacy #[id number], Partial fill upon patient request if the prescription is for a schedule IIopioid drug., 160, cm, 03/26/24 9:01:00 EDT, Height, 68.3, kg, 03/26/24 8:36:00 EDT, Dry Weight Start Date: 04/27/24 Status: Ordered Quantity: 90.0 Unit: tablet Repeat number: 2 lisinopril 10 mg oral tablet 1, tablet, By Mouth, Daily, # 90 tablet, Refills 1, Maintenance, 04/26/24 11:31:00 AM EDT, Route toPharmacy Electronically, [id number], 160, cm, 03/26/24 9:01:00 EDT, Height, 68.3, kg, 248:36:00 EDT, Dry Weight Start Date: 04/26/24 Status: Ordered Quantity: 90.0 Unit: tablet Repeat number: 1 MetFORMIN (Eqv-Glucophage XR) 500 mg oral tablet, extended release 2 tablet, By Mouth, 2 times a day, # 360 tablet, 1 Refills, Maintenance, 04/25/24 11:41:00 AM EDT, [id number], 160, cm, 03/26/24 9:01:00 EDT, Height, 68.3, kg, 03/26/24 8:36:00 EDT, Dry Weight Start Date: 04/25/24 Status: Ordered Quantity: 360.0 Unit: tablet Repeat number: 1 Tums E-X 750 mg oral tablet, chewable 1 tablet = 750 mg, Chew, 2 times a day, # 60 tablet, 0 Refills, Maintenance, 07/03/12 10:50:08 AM EST, Chew Tablet Start Date: 07/03/12 Status: Ordered Quantity: 60.0 Unit: tablet Repeat number: 1 Vitamin D3 2000 intl units oral capsule 1 capsule = 2,000 International_Units, By Mouth, Daily, 0 Refills, Maintenance, 07/03/12 10:49:51 AM EST Start Date: 07/03/12 Status: Ordered Repeat number: 1 Problem List Condition Confirmation Course Effective Dates Status Health St atus Informant Diabetes Confirmed Active HTN (hypertension) Confirmed Active Vital Signs Most recent to oldest [Reference Range]: 1 Height 160 cm (07/28/24 10:58 AM) Weight 67.8 kg (07/28/24 10:58 AM) Oxygen Saturation [94-100 %] 98 % (07/28/24 10:58 AM) Pulse Rate [55-90 bpm] 74 bpm (07/28/24 10:58 AM) Body Mass Index [18.5-24.99 kg/m2] 26.48 kg/m2 *H* (07/28/24 10:58 AM) Blood Pressure [90-138/55-84 mm Hg] 141/ 67mm Hg *H* (07/28/24 10:58 AM) Respiratory Rate [16-30 br/min] 14 br/mi n *L* (07/28/24 10:58 AM) Mode of Delivery (Oxygen) Room air (07/28/24 10:58 AM) Blood pressure sites Arm, left (07/28/24 10:58 AM) Dry Weight 67.8 kg (07/28/24 10:58 AM) Weight Obtained Via Standing scale (07/28/24 10:58 AM) Dry Weight Obtained Via Standing scale (07/28/24 10:58 AM) Social History Social History Type Response Smoking Status Former smoker, quit more than 30 days ago entered on: 07/28/24 Sex Sex Representation Female (finding) Patient Care team information Care Team Personnel Name: Kalpana Washington MD Position: [facility] Physician - Primary Care Member Role: PCP Address: [address] [place] [address] Telecom: Care Team Related Persons Name: ARPAN SCOTT Name: BRAYDEN SCOTT Name: JUJU CHARLES Insurance Providers Guarantor name: HORTENCIA SCOTT Health Plan Information #: 2 Payer: SELF PAY INSURANCE Member Number: NA Policy Number: NA Group Number: NA Health Plan Information #: 3 Payer: [employer] [facility] Member Number: [id number] Policy Number: NA Group Number: [id number] Health Plan Information #: 1 Payer: NA Member Number: [id number] Policy Number: NA Group Number: NA
--- OUTSIDE RECORDS SUMMARY | 2024-08-07 11:17 | XMS_ITS | Patient Health Record ---
Author Organization [facility] Address [address] [place] [address] Care Team Providers Care [employer] Professional Name Role Phone Orville Cadet Primary Care Provider Unavailab sonya SingletonMichelle Unavailable [phone] Allergies Allergen (clinical drug ingredient) Drug/Non Drug Allergy documented on EMR Reaction Allergy Type Onset Date Status Substance with sulfonamide structure and antibacterial mechanism of action (substance) Sulfa Antibiotics Unknown Drug Allergy Active Reason For Referral No Information Medications Medication SIG (Take, Route, Frequency, Duration) Notes Start Date End Date Status Lisinopril 10 MG (Prior Auth#:[id number]) Oral for 90 Active metFORMIN HCl ER 500 MG (Prior Auth#:[id number]) Oral for 90 Active Claritin 10 MG 1 tablet Orally Once a day for 30 day(s) 07/21/2020 Active Atorvastatin Calcium 20 MG as directed O rally Once a day Active Vitamin D PRN Active Immunizations Vaccine Route Administration Date Status Comme nts COVID-19 Pfizer BioNTech Vaccine Unknown 03/26/2021 Administered 1st 06/30/2020 2nd 07/26/2020 Influenza Unknown 03/31/2020 Administered Influenza Unknown 03/31/2021 Administered Social History Tobacco Use: Social History Observation Description Date Details (start date - stop date) Former Smoker NA - NA Tobacco Use/Smoking Question Answer Notes Are you a: former smoker Additional Findings: Tobacco Non-User Current no n-smoker Alcohol Screen Question Answer Notes Did you have a drink contain ing alcohol in the past year? Yes How often did you have a dri nk containing alcohol in the past year? 2 to 3 times a week (3 points) How often did you have 6 or more drinks on one occasion in the past year? Weekly (3 points) Points 6 Interpretation Positive Tobacco use other than smoking: Question Answer Notes Are you an other tobacco user? 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) Active confirmed Problem Type II diabetes mellitus without complication (506417958) Type 2 diabetes mellitus without complications (E11.9) Active confirmed Problem [id number] Contracture of joint of right foot (M24.574) Active confirmed Problem Acquired deformity of right foot (16566144032055671 ) PlantarFlexion of metatarsal of right foot (M21.6X1) Active confirmed Plan Of Treatment Pending Test Test Name Order Date 43206, J0702- Neuroma/Injection 12/23/19 21 95651, J0702- Neuroma/Injection 02/14/20 19529, J0702- Neuroma/Injection 06/05/20 21 Insurance Providers Payer Name Payer Address Payer Phone Subscriber Number Group Number Insured Name Patient Relationship to Insured Coverage Start Date Coverage End Date [employer] [address] [address] [place] [address] [id number] Delma Rush Self - patient is the insured 1 Medical (General) History Medical History History ICD Code Back,Hip,and Knee pain Broken bones Diabetes mellitus type 2 Osteoporosis High blood pressure chronic sinusitis Warts Chicken pox tricuspid regurgitation Surgical History Surgery Date(Month/Year) section 1987 vocal cords 1994 left knee arthroscopy 1999
--- OUTSIDE RECORDS SUMMARY | 2024-08-07 11:17 | XMS_ITS | Continuity of Care Document ---
Author Organization 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 Test BS 2 x a day,09/07/22 1:09:00 PM EST, Supply, 160, cm, 03/09/23 10:03:00 EST, Height, 67.7, kg, 02/23/22 6:47:00 EDT, Dry Weight Start Date: 09/07/22 Status: Ordered Quantity: 200.0 Unit: each Repeat number: 6 Freestyle Lite Monitor See Instructions, # 1 each, Maintenance, DX: E11.9. Test BS 2 x a day, 09/07/22 1:09:00 PM EST, Supply, 160, cm, 09/06/22 10:03:00 EST, Height, 67.7, kg, 02/23/22 6:47:00 EDT, Dry Weight Start Date: 09/07/22 Status: Ordered Quantity: 1.0 Unit: each Repeat number: 1 FREESTYLE LITE TEST STRIP FREESTYLE LITE TEST STRIP, See Instructions, # 200 Unknown, 1 Refills, Maintenance, USE DIRECTEDTO CHECK BLOOD SUGAR TWICE A DAY, 06/12/24 3:35:00 PM EST, 160, cm, 03/26/24 9:01:00 EDT, Height, 68.3, kg, 03/26/24 8:36:00 EDT, Dry Weight Start Date: 06/12/24 Status: Ordered Quantity: 200.0 Unit: Unknown Repeat number: 1 FREESTYLE LITE TEST STRIP FREESTYLE LITE TEST STRIP, See Instructions, # 200 Unknown, 1 Refills, Maintenance, USE DIRECTEDTO CHECK BLOOD SUGAR TWICE A DAY, 01/28/24 3:13:00 PM EDT, 160, cm, 01/15/24 9:18:00 EDT, Height, 67.7, kg, 02/23/22 6:47:00 EDT, Dry Weight Start Date: 01/28/24 Status: Ordered Quantity: 200.0 Unit: Unknown Repeat number: 1 Freestyle Lite Test Strips See Instructions, # 200 each, Refills 5, Tot. Refills 5, Maintenance, DX: E11.9. Test BS 2 x a day,09/07/22 1:09:00 PM EST, Supply, 160, cm, 09/06/22 10:03:00 EST, Height, 67.7, kg, 02/23/22 6:47:00 EDT, Dry Weight Start Date: 09/07/22 Status: Ordered Quantity: 200.0 Unit: each Repeat number: 6 glimepiride 1 mg oral tablet 1 tablet = 1 mg, By Mouth, Daily, # 90 tablet, 1 Refills, Maintenance, 04/27/24 10:36:00 AM EDT, Tablet, [facility]/pharmacy #[id number], Partial fill upon patient request if the prescription is for a schedule IIopioid drug., 160, cm, 03/26/24 9:01:00 EDT, Height, 68.3, kg, 03/26/24 8:36:00 EDT, Dry Weight Start Date: 04/27/24 Status: Ordered Quantity: 90.0 Unit: tablet Repeat number: 2 Jardiance 10 mg oral tablet 1 tablet = 10 mg, By Mouth, Daily in AM, # 30 tablet, 5 Refills, Maintenance, 07/22/23 10:21:00 AM EST, Tablet, [facility]/pharmacy #[id number], Partial fill upon patient request if the prescription is for a schedule II opioid drug., 160, cm, 07/22/23 9:57:00 EST, Height, 67.7, kg, 02/23/22 6:47:00 EDT, Dry Weight Start Date: 07/22/23 Status: Ordered Quantity: 30.0 Unit: tablet Repeat number: 6 lisinopril 10 mg oral tablet 1, tablet, By Mouth, Daily, # 90 tablet, Refills 1, Maintenance, 04/26/24 11:31:00 AM EDT, Route toPharmacy Electronically, [id number], 160, cm, 03/26/24 9:01:00 EDT, Height, 68.3, kg, 248:36:00 EDT, Dry Weight Start Date: 04/26/24 Status: Ordered Quantity: 90.0 Unit: tablet Repeat number: 1 MetFORMIN (Eqv-Glucophage XR) 500 mg oral tablet, extended release 2 tablet, By Mouth, 2 times a day, # 360 tablet, 1 Refills, Maintenance, 04/25/24 11:41:00 AM EDT, [facility], 160, cm, 03/26/24 9:01:00 EDT, Height, 68.3, [...] Date: 07/03/12 Status: Ordered Repeat number: 1 Social History Social History Type Response Smoking Status Former smoker, quit more than 30 days ago; Tobacco use times per day: Quit 1988 - 2 packs per week; Number of years: 15; entered on: 09/06/22 Sex Sex Representation Female (finding) Patient Care team information Care Team Personnel Name: Padmini MCCOY, Kalpana Simpson Position: [facility] Physician - Primary Care Member Role: PCP Address: [address] [place] [address] Telecom: Care Team Related Persons Name: ARPAN SCOTT Name: BRAYDEN SCOTT Name: JUJU CHARLES Insurance Providers Guarantor name: HORTENCIA SCOTT Health Plan Information #: 1 Payer: [facility] [employer] Member Number: NA Policy Number: NA Group Number: NA
[2024-08-07] MEDS: Acetaminophen 325 MG TABLET 975 MG PO (12:31)
[2024-08-07 12:33] VITALS: BP 182/72; PULSE 90; RESP 19; TEMP 36.6; O2SAT 98
== END 2024-08-07 12:33 | disposition home or self-care (01) ==
PROVIDERS: Emergency Provider Emergency Medicine Emergency Medical Services; PCP Internal Medicine
DX: S22.41XA Multiple fractures of ribs, right side, initial encounter for closed fracture (principal); R51.9 Headache, unspecified; R07.81 Pleurodynia; M54.50 Low back pain, unspecified; E11.9 Type 2 diabetes mellitus without complications; W00.0XXA Fall on same level due to ice and snow, initial encounter; Y93.01 Activity, walking, marching and hiking; Y92.9 Unspecified place or not applicable; Y99.8 Other external cause status; Z79.899 Other long term (current) drug therapy; Z79.84 Long term (current) use of oral hypoglycemic drugs
CPT/HCPCS: 70450; 71101; 71250; 94010; 99284

== ENCOUNTER → 2024-08-07 09:55 | Outpatient (BNV) | payer MEDICARE, SELFPAY | PROVIDERS: Emergency Provider Emergency Medicine Emergency Medical Services; PCP Internal Medicine; Visit Provider Radiology Diagnostic Radiology | DX: I67.2 Cerebral atherosclerosis (principal); R07.89 Other chest pain; S23.41XA Sprain of ribs, initial encounter | CPT/HCPCS: 70450; 71101; 71250 ==

== ENCOUNTER 2024-08-11 13:13 | Outpatient (AMB) | payer MEDICARE, SELFPAY ==
--- NOTE | 2024-08-11 13:16 | MHC.OFFVIS ---
Vital Signs 08/11/24 13:24 Height 5 ft 3 in Weight 153 lb BMI 27.1 BP 158/70 H Blood Pressure Location Rt brachial Position Sitting Pulse 78 Intake Visit Reasons: rib fracture Intake Note: Patient referred after ED visit for fracture ribs after fall. Patient c/o: pain. Taking rx pain meds, alternating motrin and tylenol. Chest CT: 08-07-2024 Associate Scientist Required: No Accompanied by: sister Michelle Allergies Sulfa (Sulfonamide Antibiotics) Allergy (Unknown, Verified 08/11/24 13:23) rash all over body sulfamethoxazole [From Bactrim] Allergy (Unknown, Verified 08/11/24 13:23) rash all over body trimethoprim [From Bactrim] Allergy (Unknown, Verified 08/11/24 13:23) rash all over body glipizide Adverse Reaction (Intermediate, Verified 08/11/24 13:23) hypoglycemia Medication List - Last Reconciled 08/11/24 by Braxton Winchester MD amlodipine 2.5 mg PO DAILY 90 days aspirin 81 mg PO DAILY atorvastatin 40 mg PO DAILY 90 days blood sugar diagnostic TEST DAILY blood sugar diagnostic (Gridle.inuch Ultra Test strips) As directed calcium carbonate (Tums Extra Strength Smoothies) 300 mg PO BID cholecalciferol (vitamin D3) 50 mcg PO MOFR ezetimibe 10 mg PO DAILY glimepiride 1 mg PO DAILY 90 days lancets (iConnectivityTouch Delica Plus Lancet) TEST DAILY lisinopril 10 mg PO DAILY metformin ER 1,000 mg (2 x 500 mg) PO BID 30 days fxpgiunyqqrr-ragxvwyz-etmoxb 1 tab PO DAILY oxycodone 5 mg PO Q6H PRN HPI Comments Details: Patient was here for follow-up status post a fall last Saturday on the ice were patient landed on her right lateral chest and sustained multiple rib fractures. Worked up in the ER and was discharged home and sent here for follow-up. Patient was given analgesia and incentive spirometry. She presents here with her sister Patient was significant costal pain. She is unable to sleep in the bed supine yet. She has no respiratory issues or complaints. She is otherwise tolerating a diet. He is having regular bowel habits. She takes her time was able to ambulate. Chart was reviewed and patient evaluated [facility] Medical History Other and unspecified hyperlipidemia Essential hypertension Type 2 diabetes mellitus with unspecified complications Surgical History History of abdominal surgery History of vocal cord polypectomy History of cervical polypectomy History of colonoscopy History of arthroscopy of left knee History of section Family History Father Lung cancer Hypertension High cholesterol CAD (coronary artery disease) Mother Lung cancer Hypertension Stroke High cholesterol Son No problems noted. Daughter Asthma Hypothyroid Maternal Grandmother Diabetes Hypertension Stroke Maternal Grandfather No problems noted. Paternal Grandmother CAD (coronary artery disease) Hypertension Sister Melanoma Mental health disorder Social History Household Members: Other Housing: House Are you a primary child care aide to a significant other at home: No Do you presently have visiting nurse or other home services: No Unable to assess alcohol history related to: Unknown Alcohol intake: current Alcohol intake frequency: a few times a month Alcohol type: beer Patient Tobacco Use Status: Former Tobacco user Tobacco use type: Cigarette e-Cigarette/Vaping Use: Former Use Second Hand Smoke Exposure: No Advance Directives Date on File: 09/30/21 service: No Current occupational status: employed Current occupational exposures/hazards: No Cognitive needs: No Hearing needs: Yes Vision needs: Yes Physical Exam Vital Signs: Last Vital Signs Pulse 78 08/11/24 13:24 BP 158/70 H 08/11/24 13:24 BMI result Body Mass Index 27.1 Const Other: Patient in no respiratory distress. Obvious right costal discomfort. Chest Other: Chest breath sounds bilaterally. Tenderness right costal area. No evidence of any ecchymosis or bruising GI Other: Abdomen moderately corpulent, soft, benign Assessment & Plan Assessment & Plan (1) Multiple fractures of ribs: Code(s): S22.49XA - Multiple fractures of ribs, unspecified side, initial encounter for closed fracture Category: Surgical Plan At present, explained with the patient that it will take anywhere from 8-12 weeks before her costal issues will resolve. In the meantime, she is encouraged to stay ahead of the pain with her analgesics as well as Motrin. She also was encouraged to do her since incentive spirometry. No strenuous activities. She will see me in 2 weeks time or p.r.n.. Pain med script was sent. All questions answered. Medications: New hydrocodone-acetaminophen 5-325 mg Partial Fill upon patient request. 1 tab PO Q4-6H PRN 30 tabs 0RF pain Coding Level of Care Code New Pt Level 4 (44326) Diagnoses Multiple fractures of ribs S22.49XA
[2024-08-11 13:24] VITALS: BP 158/70; PULSE 78; BMI 27.1
== END 2024-08-11 13:35 | disposition home or self-care (01) ==
PROVIDERS: PCP Internal Medicine; Visit Provider Surgery
DX: S22.49XA Multiple fractures of ribs, unspecified side, initial encounter for closed fracture (principal)
CPT/HCPCS: 99204

== ENCOUNTER → 2024-08-11 13:13 | Outpatient (BNVA) | payer MEDICARE, SELFPAY | PROVIDERS: PCP Internal Medicine; Visit Provider Surgery | DX: S22.41XA Multiple fractures of ribs, right side, initial encounter for closed fracture (principal) | CPT/HCPCS: 99202 ==

== ENCOUNTER 2024-08-25 09:15 | Outpatient (AMB) | payer MEDICARE, SELFPAY ==
--- NOTE | 2024-08-25 09:18 | MHC.OFFVIS ---
Vital Signs 08/25/24 09:24 Height 5 ft 3 in Weight 153 lb BMI 27.1 BP 151/68 H Blood Pressure Location Rt brachial Position Sitting Pulse 86 Intake Visit Reasons: 2 week follow up rib fracture Intake Note: Patient here to follow up multiple rib fractures. Reports cyclobenzaprine helped. Ran out on Saturday would like to get refill. Patient c/o: sleeping up right. Laying on on back is very painful. Alternating tylenol extra strength, ibuprofen and oxycodone at night. Locomotive Inspector Required: No Accompanied by: Sister Allergies Sulfa (Sulfonamide Antibiotics) Allergy (Unknown, Verified 08/25/24 09:25) rash all over body sulfamethoxazole [From Bactrim] Allergy (Unknown, Verified 08/25/24 09:25) rash all over body trimethoprim [From Bactrim] Allergy (Unknown, Verified 08/25/24 09:25) rash all over body glipizide Adverse Reaction (Intermediate, Verified 08/25/24 09:25) hypoglycemia Medication List - Last Reconciled 08/25/24 by Braxton Winchester MD amlodipine 2.5 mg PO DAILY 90 days aspirin 81 mg PO DAILY atorvastatin 40 mg PO DAILY 90 days blood sugar diagnostic TEST DAILY blood sugar diagnostic (Mis Descuentosuch Ultra Test strips) As directed calcium carbonate (Tums Extra Strength Smoothies) 300 mg PO BID cholecalciferol (vitamin D3) 50 mcg PO MOFR cyclobenzaprine 5 mg PO Q12H ezetimibe 10 mg PO DAILY glimepiride 1 mg PO DAILY 90 days hydrocodone-acetaminophen 5-325 mg 1 tab PO Q4-6H PRN lancets (UnowhyTouch Delica Plus Lancet) TEST DAILY lisinopril 10 mg PO DAILY metformin ER 1,000 mg (2 x 500 mg) PO BID 30 days mkcxuklajrsv-qfegctto-cfunol 1 tab PO DAILY oxycodone 5 mg PO Q6H PRN HPI Comments Details: Patient presents for follow-up status post rib fractures. She presents with her friend who was also at her last visit. Slowly but steadily intercostal pain is improving. She has no acute respiratory issues or complaints. She was able to sleep although propped up in her bed now as opposed to the recliner. Patient was slowly increasing her activity level. [facility] Medical History Other and unspecified hyperlipidemia Essential hypertension Type 2 diabetes mellitus with unspecified complications Surgical History History of abdominal surgery History of vocal cord polypectomy History of cervical polypectomy History of colonoscopy History of arthroscopy of left knee History of section Family History Father Lung cancer Hypertension High cholesterol CAD (coronary artery disease) Mother Lung cancer Hypertension Stroke High cholesterol Son No problems noted. Daughter Asthma Hypothyroid Maternal Grandmother Diabetes Hypertension Stroke Maternal Grandfather No problems noted. Paternal Grandmother CAD (coronary artery disease) Hypertension Sister Melanoma Mental health disorder Social History Household Members: Other Housing: House Are you a primary pulmonary care nurse to a significant other at home: No Do you presently have visiting nurse or other home services: No Unable to assess alcohol history related to: Unknown Alcohol intake: current Alcohol intake frequency: a few times a month Alcohol type: beer Patient Tobacco Use Status: Former Tobacco user Tobacco use type: Cigarette e-Cigarette/Vaping Use: Former Use Second Hand Smoke Exposure: No Advance Directives Date on File: 09/30/21 service: No Current occupational status: employed Current occupational exposures/hazards: No Cognitive needs: No Hearing needs: Yes Vision needs: Yes Physical Exam Vital Signs: Last Vital Signs Pulse 86 08/25/24 09:24 BP 151/68 H 08/25/24 09:24 BMI result Body Mass Index 27.1 Chest Other: Chest breath sounds bilaterally. Assessment & Plan Assessment & Plan (1) Multiple fractures of ribs: Code(s): S22.49XA - Multiple fractures of ribs, unspecified side, initial encounter for closed fracture Category: Surgical Plan Patient was to continue her slow but steady convalescence. I explained to her last visit and reiterated that it takes anywhere from 6-12 weeks for ribs to healed. She can ambulate as tolerated. I would not attempted any gym her workouts for another 4-6 weeks. Patient was like a renal over Flexeril which will be provided. All questions answered. Patient will otherwise follow-up p.r.n.. Medications: New cyclobenzaprine 5 mg PO BEDTIME 20 tabs 0RF Refilled cyclobenzaprine 5 mg PO Q12H 20 tabs 0RF Muscle spasm cyclobenzaprine 5 mg PO Q12H 20 tabs 0RF Muscle spasm Coding Level of Care Code Est Pt Level 4 (26999) Diagnoses Multiple fractures of ribs S22.49XA
[2024-08-25 09:24] VITALS: BP 151/68; PULSE 86; BMI 27.1
--- OUTSIDE RECORDS SUMMARY | 2024-08-25 10:06 | XMS_ITS | Patient Health Record ---
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 Name Role Phone Orville Cadet Primary Care Provider Unavailab sonya SingletonMichelle Unavailable [phone] Allergies Allergen (clinical drug ingredient) Drug/Non Drug Allergy documented on EMR Reaction Allergy Type Onset Date Status Substance with sulfonamide structure and antibacterial mechanism of action (substance) Sulfa Antibiotics Unknown Drug Allergy Active Reason For Referral No Information Medications Medication SIG (Take, Route, Frequency, Duration) Notes Start Date End Date Status Lisinopril 10 MG (Prior Auth#:[id number]) Oral for 90 Active metFORMIN HCl ER 500 MG (Prior Auth#:[id number]) Oral for 90 Active Claritin 10 MG [...] primary osteoarthritis of the ankle and/or foot (862208078) Primary osteoarthritis, right ankle and foot (M19.071) Active confirmed Problem Acquired hammer toe of right foot (0495845535882125) Other hammer toe(s) (acquired), right foot (M20.41) Active confirmed Problem Plantar nerve lesion (515893118) Lesion of plantar nerve, 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) Active confirmed Problem Type II diabetes mellitus without complication (577890203) Type 2 diabetes mellitus without complications (E11.9) Active confirmed Problem [id number] Contracture of joint of right foot (M24.574) Active confirmed Problem Acquired deformity of right foot (61228076970185282 ) PlantarFlexion of metatarsal of right foot (M21.6X1) Active confirmed Plan Of Treatment Pending Test Test Name Order Date 81389, J0702- Neuroma/Injection 12/23/19 21 13896, J0702- Neuroma/Injection 02/14/20 07066, J0702- Neuroma/Injection 06/05/20 21 Insurance Providers Payer Name Payer Address Payer Phone Subscriber Number Group Number Insured Name Patient Relationship to Insured Coverage Start Date Coverage End Date [employer] [address] [address] [place] [address] [id number] Delma Rush Self - patient is the insured 1 Medical (General) History Medical History History ICD Code Back,Hip,and Knee pain Broken bones Diabetes mellitus type 2 Osteoporosis High blood pressure chronic sinusitis Warts Chicken pox tricuspid regurgitation Surgical History Surgery Date(Month/Year) section 1987 vocal cords 1994 left knee arthroscopy 1999
== END 2024-08-25 09:33 | disposition home or self-care (01) ==
PROVIDERS: PCP Internal Medicine; Visit Provider Surgery
DX: S22.49XA Multiple fractures of ribs, unspecified side, initial encounter for closed fracture (principal)
CPT/HCPCS: 99214

== ENCOUNTER → 2024-08-25 09:15 | Outpatient (BNVA) | payer MEDICARE, SELFPAY | PROVIDERS: PCP Internal Medicine; Visit Provider Surgery | DX: S22.49XD Multiple fractures of ribs, unspecified side, subsequent encounter for fracture with routine healing (principal); X58.XXXD Exposure to other specified factors, subsequent encounter | CPT/HCPCS: 99212 ==

== ENCOUNTER 2024-09-07 14:45 | Outpatient (AMB) | payer MEDICARE, SELFPAY ==
[2024-09-07 14:50] VITALS: BP 110/76; PULSE 88; BMI 26.6
--- NOTE | 2024-09-07 14:50 | MHC.OFFVIS ---
Vital Signs 09/07/24 14:50 Height 5 ft 3 in Weight 149 lb 14.629 oz BMI 26.6 BP 110/76 Blood Pressure Location Lt brachial Position Sitting Pulse 88 Intake Visit Reasons: 1 yr f/up Intake Note: 1 year follow-up with ekg feeling good Chief Embalmer Required: No Allergies Sulfa (Sulfonamide Antibiotics) Allergy (Unknown, Verified 08/25/24 09:25) rash all over body sulfamethoxazole [From Bactrim] Allergy (Unknown, Verified 08/25/24 09:25) rash all over body trimethoprim [From Bactrim] Allergy (Unknown, Verified 08/25/24 09:25) rash all over body glipizide Adverse Reaction (Intermediate, Verified 08/25/24 09:25) hypoglycemia Medication List - Last Reconciled 09/07/24 by Sarmad Macdonald MD amlodipine 2.5 mg PO DAILY 90 days aspirin 81 mg PO DAILY atorvastatin 40 mg PO DAILY 90 days blood sugar diagnostic TEST DAILY blood sugar diagnostic ([employer] Ultra Test strips) As directed calcium carbonate (Tums Extra Strength Smoothies) 300 mg PO BID PRN cholecalciferol (vitamin D3) 50 mcg PO MOFR cyclobenzaprine 5 mg PO BEDTIME ezetimibe 10 mg PO DAILY glimepiride 1 mg PO DAILY 90 days lancets (Adaptive Ozone SolutionsTouch Delica Plus Lancet) TEST DAILY lisinopril 10 mg PO DAILY metformin ER 1,000 mg (2 x 500 mg) PO BID 30 days adolldzjpehr-xpxuhruc-yxftgp 1 tab PO DAILY HPI Comments Details: Delma comes for year follow-up for coronary disease. Although few weeks ago she fell on ice and had significant rib injury with fractures of multiple ribs. She was still recuperating from the same. This was prevents her from exercises. However prior to that she was pretty functional and had no active cardiac symptoms. Denies any other symptoms of worsening shortness of breath, orthopnea, PND. Takes all her medications. No recent lipid panel in the system but says has lipids done through her primary care physician, will obtain a copy. A blood pressures been well controlled. [facility] Medical History Other and unspecified hyperlipidemia Essential hypertension Type 2 diabetes mellitus with unspecified complications Surgical History History of abdominal surgery History of vocal cord polypectomy History of cervical polypectomy History of colonoscopy History of arthroscopy of left knee History of section Family History Father Lung cancer Hypertension High cholesterol CAD (coronary artery disease) Mother Lung cancer Hypertension Stroke High cholesterol Son No problems noted. Daughter Asthma Hypothyroid Maternal Grandmother Diabetes Hypertension Stroke Maternal Grandfather No problems noted. Paternal Grandmother CAD (coronary artery disease) Hypertension Sister Melanoma Mental health disorder Social History Household Members: Other Housing: House Are you a primary technical healthcare consultant to a significant other at home: No Do you presently have visiting nurse or other home services: No Unable to assess alcohol history related to: Unknown Alcohol intake: current Alcohol intake frequency: a few times a month Alcohol type: beer Patient Tobacco Use Status: Former Tobacco user Tobacco use type: Cigarette e-Cigarette/Vaping Use: Former Use Second Hand Smoke Exposure: No Advance Directives Date on File: 09/30/21 service: No Current occupational status: employed Current occupational exposures/hazards: No Cognitive needs: No Hearing needs: Yes Vision needs: Yes Review of Systems Const Denies chills, Denies fatigue, Denies fever(s), Denies frequent falls, Denies weakness, Denies weight gain and Denies weight loss ENT Denies dizziness Card Denies chest pain, Denies leg edema, Denies lightheadedness, Denies palpitations, Denies dyspnea, Denies dyspnea on exertion, Denies orthopnea and Denies other (loss of consciousness) Resp Denies cough, Denies dyspnea and Denies dyspnea on exertion GI Denies hematochezia and Denies change in stool character Musc Denies abnormal gait, Denies muscle weakness, Denies numbness, Denies radiating pain into limb and Denies tingling Neuro Denies abnormal gait, Denies dizziness, Denies frequent falls, Denies numbness, Denies tingling and Denies weakness Endo Denies fatigue and Denies palpitations Physical Exam Vital Signs: Last Vital Signs Pulse 88 09/07/24 14:50 BP 110/76 09/07/24 14:50 BMI result Body Mass Index 26.6 Const General: cooperative, healthy appearing, comfortable and no acute distress Orientation/consciousness: patient oriented x3 Neck Neck: Yes normal visual inspection Resp Effort & Inspection: normal respiratory effort Auscultation: clear to auscultation bilaterally, no crackles, no rales, no rhonchi and no wheezes Cardio Jugular venous distension: no JVD Rate: regular rate Rhythm: regular rhythm Heart sounds: S1 normal heart sound present, S2 normal heart sound present, no murmurs and no rubs Neuro General: patient oriented x3 Extrem General: Yes normal to inspection Psych Appearance: grossly normal Mental Status: mental status grossly normal Speech and movement: Normal speech and movement present Office Procedures EKG Details: EKG shows normal sinus rhythm with low-voltage QRS with poor R-wave progression otherwise no significant ST T wave changes [id number], Complete Assessment & Plan Assessment & Plan (1) CAD (coronary artery disease): Code(s): I25.10 - Atherosclerotic heart disease of [place] coronary artery without angina pectoris Category: Medical Qualifiers: Coronary Disease-Associated Artery/Lesion type: [place] artery [place] vs. transplanted heart: [place] heart Associated angina: without angina Qualified Code(s): I25.10 - Atherosclerotic heart disease of [place] coronary artery without angina pectoris Plan: Mild and diffuse atherosclerosis and coronary artery disease but nonobstructive. Currently patient was asymptomatic from cardiac perspective. Continue current medical therapy. Low-dose aspirin therapy for life. Continue aggressive lipid modification with goal LDL less than 70 mg/dL ideally closer to 55 mg/dL. Continue aggressive diabetes management being pursue through your office with goal hemoglobin A1c less than 7%. Consider addition of GLP 1 antagonist. Continue aggressive blood pressure control, see below. She was advised to call me with any new symptoms. She was encouraged to participate after she recovers in regular physical activity. She understands and agrees. (2) HTN (hypertension): Code(s): I10 - Essential (primary) hypertension Category: Medical Qualifiers: Hypertension type: essential hypertension Qualified Code(s): I10 - Essential (primary) hypertension Plan: Hypertension which is currently well optimized advised to monitor blood pressure at home maintain a log. Goal blood pressure less than 130/84. Low-salt diet was discussed. Continue other aggressive vascular risk factor modifications in his above. Will follow up in the clinic in 1 year's time, sooner p.r.n.. Thank you for allowing me to partake in his care Coding Level of Care Code Est Pt Level 4 (33013) Complex EM visit Add On G2211 Diagnoses Coronary artery disease involving [place] coronary artery of [place] heart without angina pectoris I25.10 Coronary Disease-Associated Artery/Lesion type: [place] artery [place] vs. transplanted heart: [place] heart Associated angina: without angina Essential hypertension I10 Hypertension type: essential hypertension CPT Codes EKG - CPT: 73985-Pokxfhvpnnpilwidf, Complete ([id number])
--- OUTSIDE RECORDS SUMMARY | 2024-09-07 16:53 | XMS_ITS | Continuity of Care Document ---
Author Organization [facility] Primary [facility] [place] Address [address] [place] [address]- Care Team Providers Care Mortgage Sales Manager Name Role Phone Padmini MCCOY, Kalpana Simpson Primary Care Physician ( [phone] Encounter [facility] Date(s): 07/28/24 - 08/27/24 [facility] [address], [place] [address] Encounter Type: Triage Allergies, Adverse Reactions, Alerts [...] hepatitis B adult vaccine 03/17/01 Recorded Medications acetaminophen-HYDROcodone 325 mg-5 mg oral tablet 0 Refills, Maintenance, 08/12/24 11:01:00 AM EST, Partial fill upon patient request if the prescription is for a schedule II opioid drug. Start Date: 08/12/24 Status: Ordered Repeat number: 1 amLODIPine 2.5 mg oral tablet 2.5 mg, [...] 1 Refills, Maintenance, 06/12/24 3:34:00 PM EST, [facility], 160, cm, 03/26/24 9:01:00 EDT, Height, 68.3, kg, 03/26/24 8:36:00 EDT, Dry Weight Start Date: 06/12/24 Status: Ordered Quantity: 90.0 Unit: tablet Repeat number: 1 Centrum Silver 1 tablet, By Mouth, Daily, 0 Refills, Maintenance, 01/10/23 1:54:00 PM EDT, Partial fill upon patient request if the prescription is for a schedule II opioid drug. Start Date: 01/10/23 Status: Ordered Repeat number: 1 cyclobenzaprine 5 mg oral tablet 0 Refills, Maintenance, 08/12/24 11:01:00 AM EST, Partial fill upon patient request if the prescription is for a schedule II opioid drug. Start Date: 08/12/24 Status: Ordered Repeat number: 1 ezetimibe 10 [...] Refills, Maintenance, 04/27/24 10:36:00 AM EDT, Tablet, [facility]/pharmacy #[id number], Partial fill upon patient request if the prescription is for a schedule IIopioid drug., 160, cm, 03/26/24 9:01:00 EDT, Height, 68.3, kg, 03/26/24 8:36:00 EDT, Dry Weight Start Date: 04/27/24 Status: Ordered Quantity: 90.0 Unit: tablet Repeat number: 2 Ibuprofen Refills 0, Maintenance, 08/12/24 11:06:00 AM EST, Partial fill upon patient request if the prescription is for a schedule II opioid drug. Start Date: 08/12/24 Status: Ordered Repeat number: 1 lisinopril 10 mg oral tablet 1, tablet, By Mouth, Daily, # 90 tablet, Refills 1, Maintenance, 04/26/24 11:31:00 AM EDT, Route toPharmacy Electronically, [facility], 160, cm, 03/26/24 9:01:00 EDT, Height, 68.3, kg, 248:36:00 EDT, Dry Weight Start Date: 04/26/24 Status: Ordered Quantity: 90.0 Unit: tablet Repeat number: 1 MetFORMIN (Eqv-Glucophage XR) 500 mg oral tablet, extended release 2 tablet, By Mouth, 2 times a day, # 360 tablet, 1 Refills, Maintenance, 04/25/24 11:41:00 AM EDT, [facility], 160, cm, 03/26/24 9:01:00 EDT, Height, 68.3, [...] Quantity: 60.0 Unit: tablet Repeat number: 1 Tylenol 8 Hour 650 mg oral tablet, extended release 2 tablet = 1,300 mg, By Mouth, Every 8 hours, 0 Refills, Maintenance, 08/12/24 11:06:00 AM EST, Partial fill upon patient request if the prescription is for a schedule II opioid drug. Start Date: 08/12/24 Status: Ordered Repeat number: 1 Vitamin D3 2000 intl units oral capsule 1 capsule = 2,000 International_Units, By Mouth, Daily, 0 Refills, Maintenance, 07/03/12 10:49:51 AM EST Start Date: 07/03/12 Status: Ordered Repeat number: 1 Problem List Condition Confirmation Course Effective Dates Status Health St atus Informant Diabetes Confirmed Active HTN (hypertension) Confirmed Active Social History Social History Type Response Smoking Status Former smoker, quit more than 30 days ago entered on: 07/28/24 Sex Sex Representation Female (finding) Patient Care team information Care Team Personnel Name: Padmini MCCOY, Kalpana Simpson Position: [facility] Physician - Primary Care Member Role: PCP Address: [address] [place] [address] Telecom: Care Team Related Persons Name: ARPAN SCOTT Name: BRAYDEN SCOTT Name: JUJU CHARLES Insurance Providers Guarantor name: HORTENCIA SCOTT Health Plan Information #: 1 Payer: NA Member Number: NA Policy Number: NA Group Number: NA
--- OUTSIDE RECORDS SUMMARY | 2024-09-07 16:53 | XMS_ITS | Continuity of Care Document ---
Author Organization [facility] Address [address] [place] [address]- Care Team Providers Care Medical Certification Specialist Name Role Phone Padmini MCCOY, Kalpana Simpson Primary Care Physician Encounter [facility] Date(s): 07/28/24 - 08/27/24 [facility] [address], [place] [address] Attending Physician: Admtr, [id number] Admitting Physician: Admtr, [id number] Referring Physician: Admtr, [id number] Encounter Type: Triage Allergies, Adverse Reactions, Alerts [...] 1 Refills, Maintenance, 06/12/24 3:34:00 PM EST, [facility], 160, cm, 03/26/24 9:01:00 EDT, Height, 68.3, [...] Refills, Maintenance, 04/27/24 10:36:00 AM EDT, Tablet, [facility]/pharmacy #[id number], Partial fill upon patient request [...] 04/26/24 11:31:00 AM EDT, Route toPharmacy Electronically, [facility]147, 160, cm, 03/26/24 9:01:00 EDT, Height, 68.3, kg, 248:36:00 EDT, Dry Weight Start Date: 04/26/24 Status: Ordered Quantity: 90.0 Unit: tablet Repeat number: 1 MetFORMIN (Eqv-Glucophage XR) 500 mg oral tablet, extended release 2 tablet, By Mouth, 2 times a day, # 360 tablet, 1 Refills, Maintenance, 04/25/24 11:41:00 AM EDT, [facility], 160, cm, 03/26/24 9:01:00 EDT, Height, 68.3, [...] Team Personnel Name: Kalpana Washington MD Position: [facility] Physician - Primary Care Member Role: PCP Address: [address] [place] [address] Telecom: Care Team Related Persons Name: ARPAN SCOTT Name: BRAYDEN SCOTT Name: JUJU CHARLES Insurance Providers Guarantor name: HORTENCIA SCOTT Health Plan Information #: 1 Payer: ANGE Member Number: NA Policy Number: NA Group Number: NA
--- OUTSIDE RECORDS SUMMARY | 2024-09-07 16:53 | XMS_ITS | Patient Health Record ---
Author Organization [facility] Address [address] [place] [address] Care Team Providers Care Fish House Worker Name Role Phone Orville Cadet Primary Care Provider Unavailab sonya SingletonMichelle Unavailable [phone] Allergies Allergen (clinical drug ingredient) Drug/Non Drug Allergy documented on EMR Reaction Allergy Type Onset Date Status Substance with sulfonamide structure and antibacterial mechanism of action (substance) Sulfa Antibiotics Unknown Drug Allergy Active Reason For Referral No Information Medications Medication SIG (Take, Route, Frequency, Duration) Notes Start Date End Date Status Lisinopril 10 MG (Prior Auth#:[id number]) Oral for 90 Active metFORMIN HCl ER 500 MG (Prior Auth#:[id number]) Oral for 90 Active Claritin 10 MG [...] primary osteoarthritis of the ankle and/or foot (569346572) Primary osteoarthritis, right ankle and foot (M19.071) Active confirmed Problem Acquired hammer toe of right foot (5549933159581199) Other hammer toe(s) (acquired), right foot (M20.41) Active confirmed Problem Plantar nerve lesion (327929198) Lesion of plantar nerve, 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) Active confirmed Problem Type II diabetes mellitus without complication (619161303) Type 2 diabetes mellitus without complications (E11.9) Active confirmed Problem 496308929934363 Contracture of joint of right foot (M24.574) Active confirmed Problem Acquired deformity of right foot (38567031265810948 ) PlantarFlexion of metatarsal of right foot (M21.6X1) Active confirmed Plan Of Treatment Pending Test Test Name Order Date 83076, J0702- Neuroma/Injection 12/23/19 21 31832, J0702- Neuroma/Injection 02/14/20 66393, J0702- Neuroma/Injection 06/05/20 21 Insurance Providers Payer Name Payer Address Payer Phone Subscriber Number Group Number Insured Name Patient Relationship to Insured Coverage Start Date Coverage End Date Blue [place] [address] [address] [place] [address] [id number] Delma Rush Self - patient is the insured 1 Medical (General) History Medical History History ICD Code Back,Hip,and Knee pain Broken bones Diabetes mellitus type 2 Osteoporosis High blood pressure chronic sinusitis Warts Chicken pox tricuspid regurgitation Surgical History Surgery Date(Month/Year) section 1987 vocal cords 1994 left knee arthroscopy 1999
== END 2024-09-07 15:34 | disposition home or self-care (01) ==
PROVIDERS: PCP Internal Medicine; Visit Provider Internal Medicine Cardiovascular Disease
DX: I25.10 Atherosclerotic heart disease of native coronary artery without angina pectoris (principal); I10 Essential (primary) hypertension
CPT/HCPCS: 93010; 99214; G2211

== ENCOUNTER → 2024-09-07 14:45 | Outpatient (BNVA) | payer MEDICARE, SELFPAY | PROVIDERS: PCP Internal Medicine; Visit Provider Internal Medicine Cardiovascular Disease | DX: I25.10 Atherosclerotic heart disease of native coronary artery without angina pectoris (principal); I10 Essential (primary) hypertension; R94.31 Abnormal electrocardiogram [ECG] [EKG] | CPT/HCPCS: 93005; 99212 ==

== ENCOUNTER 2024-10-03 07:49 | Outpatient (REF) | payer MEDICARE, SELFPAY ==
--- OUTSIDE RECORDS SUMMARY | 2024-10-03 07:51 | XMS_ITS | Patient Health Record ---
Author Organization [facility] Address [address] [facility] [place] [address] Care Team Providers Care Criminal Investigator Customs Name Role Phone Orville Cadet Primary Care Provider Unavailab sonya SingletonMichelle Unavailable [phone] Allergies Allergen (clinical drug ingredient) Drug/Non Drug Allergy documented on EMR Reaction Allergy Type Onset Date Status Substance with sulfonamide structure and antibacterial mechanism of action (substance) Sulfa Antibiotics Unknown Drug Allergy Active Reason For Referral No Information Medications Medication SIG (Take, Route, Frequency, Duration) Notes Start Date End Date Status Lisinopril 10 MG (Prior Auth#:[id number]) Oral for 90 Active metFORMIN HCl ER 500 MG (Prior Auth#:[id number]) Oral for 90 Active Claritin 10 MG [...] primary osteoarthritis of the ankle and/or foot (277360671) Primary osteoarthritis, right ankle and foot (M19.071) Active confirmed Problem Acquired hammer toe of right foot (7076615139472140) Other hammer toe(s) (acquired), right foot (M20.41) Active confirmed Problem Plantar nerve lesion (195705154) Lesion of plantar nerve, 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) Active confirmed Problem Type II diabetes mellitus without complication (956858465) Type 2 diabetes mellitus without complications (E11.9) Active confirmed Problem 083033508617788 Contracture of joint of right foot (M24.574) Active confirmed Problem Acquired deformity of right foot (11985095221491402 ) PlantarFlexion of metatarsal of right foot (M21.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) Active confirmed Plan Of Treatment Pending Test Test Name Order Date 15613, J0702- Neuroma/Injection 12/23/19 21 26669, J0702- Neuroma/Injection 02/14/20 40607, J0702- Neuroma/Injection 06/05/20 21 Insurance Providers Payer Name Payer Address Payer Phone Subscriber Number Group Number Insured Name Patient Relationship to Insured Coverage Start Date Coverage End Date Blue [place] [address] [address] [place] [address] [id number] Delma Rush Self - patient is the insured 1 Medical (General) History Medical History History ICD Code Back,Hip,and Knee pain Broken bones Diabetes mellitus type 2 Osteoporosis High blood pressure chronic sinusitis Warts Chicken pox tricuspid regurgitation Surgical History Surgery Date(Month/Year) section 1987 vocal cords 1994 left knee arthroscopy 1999
== END 2024-10-03 07:50 | disposition home or self-care (01) ==
LOC: HO.MAMMO 07:49
PROVIDERS: PCP Internal Medicine; Visit Provider Internal Medicine
DX: Z12.31 Encounter for screening mammogram for malignant neoplasm of breast (principal)
CPT/HCPCS: 77063; 77067

== ENCOUNTER → 2024-10-03 08:00 | Outpatient (BNV) | payer MEDICARE, SELFPAY | PROVIDERS: PCP Internal Medicine; Visit Provider Internal Medicine | DX: Z12.31 Encounter for screening mammogram for malignant neoplasm of breast (principal) | CPT/HCPCS: 77063; 77067 ==

== ENCOUNTER 2024-11-10 10:18 | Outpatient (REF) | payer MEDICARE, SELFPAY ==
--- NOTE | ~2024-11-10 | MM_ITS ---
EXAMINATION: MM DIAGNOSTIC DIGITAL BREAST TOMOSYNTHESIS, LEFT CLINICAL INFORMATION: Call back from screening for asymmetry in the lateral left breast on CC view. COMPARISON: Mammography: Priors on PACS. TECHNIQUE: Digital breast tomosynthesis is performed in both the craniocaudal and mediolateral oblique views along with computer-aided detection (CAD). Synthesized 2D images are generated from the tomosynthesis. FINDINGS: The breasts are heterogeneously dense, which may obscure small masses (ACR BI-RADS breast composition Category c). Previously seen asymmetry in the lateral left breast middle depth on CC view does not persist on additional imaging projections and likely represented overlapping breast tissue. There are no significant masses, abnormal calcifications, or other abnormalities. MM/MM tomosynthesis added views L IMPRESSION: Left: Negative. ASSESSMENT: BI-RADS BI-RADS 1 - Negative RECOMMENDATION: 1 year F/U Results were provided to the patient at time of visit by the technologist. This patient's information was entered into a reminder system with a target due date for their next mammogram. Electronically signed by: Toña Coe DO 11/10/2024 10:55 AM EDT
--- OUTSIDE RECORDS SUMMARY | 2024-11-10 11:26 | XMS_ITS | Patient Health Record ---
Author Organization [facility] Address [address] [place] [address] Care Team Providers Care Customer Orders Clerk Name Role Phone Orville Cadet Primary Care Provider Unavailab sonya SingletonMichelle Unavailable [phone] Allergies Allergen (clinical drug ingredient) Drug/Non Drug Allergy documented on EMR Reaction Allergy Type Onset Date Status Substance with sulfonamide structure and antibacterial mechanism of action (substance) Sulfa Antibiotics Unknown Drug Allergy Active Reason For Referral No Information Medications Medication SIG (Take, Route, Frequency, Duration) Notes Start Date End Date Status Lisinopril 10 MG (Prior Auth#:[id number]) Oral for 90 Active metFORMIN HCl ER 500 MG (Prior Auth#:[id number]) Oral for 90 Active Claritin 10 MG [...] primary osteoarthritis of the ankle and/or foot (706209151) Primary osteoarthritis, right ankle and foot (M19.071) Active confirmed Problem Acquired hammer toe of right foot (2024034570409753) Other hammer toe(s) (acquired), right foot (M20.41) Active confirmed Problem Plantar nerve lesion (517809821) Lesion of plantar nerve, 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) Active confirmed Problem Type II diabetes mellitus without complication (902526283) Type 2 diabetes mellitus without complications (E11.9) Active confirmed Problem 367144065675050 Contracture of joint of right foot (M24.574) Active confirmed Problem Acquired deformity of right foot (94766572516666239 ) PlantarFlexion of metatarsal of right foot (M21.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) Active confirmed Plan Of Treatment Pending Test Test Name Order Date 09825, J0702- Neuroma/Injection 12/23/19 21 03469, J0702- Neuroma/Injection 02/14/20 07591, J0702- Neuroma/Injection 06/05/20 21 Insurance Providers Payer Name Payer Address Payer Phone Subscriber Number Group Number Insured Name Patient Relationship to Insured Coverage Start Date Coverage End Date Blue Benefits [address] [address] [place] [address] [id number] Delma Rush Self - patient is the insured 1 Medical (General) History Medical History History ICD Code Back,Hip,and Knee pain Broken bones Diabetes mellitus type 2 Osteoporosis High blood pressure chronic sinusitis Warts Chicken pox tricuspid regurgitation Surgical History Surgery Date(Month/Year) section 1987 vocal cords 1994 left knee arthroscopy 1999
== END 2024-11-10 10:19 | disposition home or self-care (01) ==
LOC: HO.MAMMO 10:18
PROVIDERS: Absent Provider Obstetrics & Gynecology Female Pelvic Medicine and Reconstructive Surgery; PCP Internal Medicine; Visit Provider Internal Medicine
DX: R92.8 Other abnormal and inconclusive findings on diagnostic imaging of breast (principal)
CPT/HCPCS: 77061; 77065

== ENCOUNTER → 2024-11-10 10:30 | Outpatient (BNV) | payer MEDICARE, SELFPAY | PROVIDERS: Absent Provider Obstetrics & Gynecology Female Pelvic Medicine and Reconstructive Surgery; PCP Internal Medicine; Visit Provider Internal Medicine | DX: R92.2 Inconclusive mammogram (principal); R92.331 Mammographic heterogeneous density, right breast | CPT/HCPCS: 77065; G0279 ==

== ENCOUNTER 2024-12-07 07:27 | Day surgery (SDC) | payer MEDICARE, SELFPAY ==
--- OUTSIDE RECORDS SUMMARY | 2024-11-12 08:50 | XMS_ITS | Continuity of Care Document ---
Author Organization [facility] Primary [facility] [place] Address [address] [place] [address]- Care Team Providers Care Metal Furniture Panel Coverer Name Role Phone Padmini MCCOY, Kalpana Simpson Primary Care Physician Encounter [facility] Date(s): 10/12/24 - 11/11/24 [facility] [address], [place] [address] En[facility] Type: Triage Allergies, Adverse Reactions, Alerts [...] 1 Refills, Maintenance, 06/12/24 3:34:00 PM EST, [facility], 160, cm, 03/26/24 9:01:00 EDT, Height, 68.3, [...] a schedule II opioid drug. Start Date: 2/12/25 Status: Ordered Repeat number: 1 ezetimibe 10 [...] Refills, Maintenance, 04/27/24 10:36:00 AM EDT, Tablet, [facility]/pharmacy #[id number], Partial fill upon patient request if the [...] 04/26/24 11:31:00 AM EDT, Route toPharmacy Electronically, [facility], 160, cm, 03/26/24 9:01:00 EDT, Height, 68.3, kg, 248:36:00 EDT, Dry Weight Start Date: 04/26/24 Status: Ordered Quantity: 90.0 Unit: tablet Repeat number: 1 MetFORMIN (Eqv-Glucophage XR) 500 mg oral tablet, extended release 2 tablet, By Mouth, 2 times a day, # 360 tablet, 1 Refills, Maintenance, 10/21/24 4:26:00 PM EDT, [facility], 160, cm, 08/12/24 11:01:00 EST, Height, 67.8, kg, 07/28/24 10:58:00 EST, Dry Weight Start Date: 10/21/24 Status: Ordered Quantity: 360.0 Unit: tablet Repeat [...] Personnel Name: Padmini MCCOY, Kalpana Simpson Position: [facility] Physician - Primary Care Member Role: PCP Address: [address] [place] [address] Telecom: Care Team Related Persons Name: ARPAN SCOTT Name: BRAYDEN SCOTT Name: JUJU CHARLES Insurance Providers Guarantor name: HORTENCIA SCOTT Health Plan Information #: 1 Payer: AVA RODRIGUEZ PPO Member Number: NA Policy Number: NA Group Number: NA
--- OUTSIDE RECORDS SUMMARY | 2024-11-12 08:51 | XMS_ITS | Patient Health Record ---
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 Name Role Phone Orville Cadet Primary Care Provider Unavailab sonya SingletonMichelle Unavailable [phone] Allergies Allergen (clinical drug ingredient) Drug/Non Drug Allergy documented on EMR Reaction Allergy Type Onset Date Status Substance with sulfonamide structure and antibacterial mechanism of action (substance) Sulfa Antibiotics Unknown Drug Allergy Active Reason For Referral No Information Medications Medication SIG (Take, Route, Frequency, Duration) Notes Start Date End Date Status Lisinopril 10 MG (Prior Auth#:[id number]) Oral for 90 Active metFORMIN HCl ER 500 MG (Prior Auth#:[id number]) Oral for 90 Active Claritin 10 MG [...] primary osteoarthritis of the ankle and/or foot (828511546) Primary osteoarthritis, right ankle and foot (M19.071) Active confirmed Problem Acquired hammer toe of right foot (0093604106779048) Other hammer toe(s) (acquired), right foot (M20.41) Active confirmed Problem Plantar nerve lesion (872880262) Lesion of plantar nerve, 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) Active confirmed Problem Type II diabetes mellitus without complication (209938353) Type 2 diabetes mellitus without complications (E11.9) Active confirmed Problem [id number] Contracture of joint of right foot (M24.574) Active confirmed Problem Acquired deformity of right foot (06998779822739934 ) PlantarFlexion of metatarsal of right foot (M21.6X1) Active confirmed Plan Of Treatment Pending Test Test Name Order Date 01086, J0702- Neuroma/Injection 12/23/19 21 93762, J0702- Neuroma/Injection 02/14/20 06846, J0702- Neuroma/Injection 06/05/20 21 Insurance Providers Payer Name Payer Address Payer Phone Subscriber Number Group Number Insured Name Patient Relationship to Insured Coverage Start Date Coverage End Date [employer] [address] [address] [place] [address] [id number] Delma Rush Self - patient is the insured 1 Medical (General) History Medical History History ICD Code Back,Hip,and Knee pain Broken bones Diabetes mellitus type 2 Osteoporosis High blood pressure chronic sinusitis Warts Chicken pox tricuspid regurgitation Surgical History Surgery Date(Month/Year) section 1987 vocal cords 1994 left knee arthroscopy 1999
[2024-12-02 07:32] VITALS: BMI 26.5
--- NOTE | 2024-12-04 09:35 | HO.ANESPROP2 ---
HPI - Anesthesia Eval Consult details Narrative: 69yo F for Right Cataract Extraction IOL Insertion No previous cataract on record PMF Active Problems Active Problems: All Active Problems Multiple fractures of ribs (Acute) Pulmonary nodule (Acute) CAD (coronary artery disease) (Acute) Upper back pain on left side (Acute) Thoracic spine pain (Acute) Hospital discharge follow-up (Acute) Other and unspecified hyperlipidemia (Acute) Essential hypertension (Acute) Type 2 diabetes mellitus with unspecified complications (Acute) Precordial chest pain (Acute) Chest pain (Acute) Laryngitis (Acute) Elevated liver enzymes (Acute) HLD (hyperlipidemia) (Acute) Family hx of melanoma (Acute) Foot callus (Acute) HTN (hypertension) (Acute) DMII (diabetes mellitus, type 2) (Acute) Past Medical History Medical History Other and unspecified hyperlipidemia Essential hypertension Type 2 diabetes mellitus with unspecified complications Family History Family History Father Lung cancer Hypertension High cholesterol CAD (coronary artery disease) Mother Lung cancer Hypertension Stroke High cholesterol Son No problems noted. Daughter Asthma Hypothyroid Maternal Grandmother Diabetes Hypertension Stroke Maternal Grandfather No problems noted. Paternal Grandmother CAD (coronary artery disease) Hypertension Sister Melanoma Mental health disorder Surgical History Surgical History History of abdominal surgery History of vocal cord polypectomy History of cervical polypectomy History of colonoscopy History of arthroscopy of left knee History of section Social History Social History Household Members: Other Housing: House Are you a primary professional healthcare representative to a significant other at home: No Do you presently have visiting nurse or other home services: No Unable to assess alcohol history related to: Unknown Alcohol intake: current Alcohol intake frequency: does not drink Alcohol type: beer Patient Tobacco Use Status: Former Tobacco user Tobacco use type: Cigarette e-Cigarette/Vaping Use: Former Use Second Hand Smoke Exposure: No Use of substances other than those prescribed or required for medical reasons: No Have you been hit, kicked, punched, or otherwise hurt by someone within the past year? If so, by whom?: No Are you DNR?: No Advance Directives: Yes Advance Directives Information Provided: No Advance Directives on File: Yes Advance Directives Date on File: 09/30/21 Patient : No : No service: No Current occupational status: employed Current occupational exposures/hazards: No Cognitive needs: No Hearing needs: Yes Vision needs: Yes Meds Allergies Allergy/AdvReac Type Severity Reaction Status Date / Time Sulfa (Sulfonamide Allergy Unknown rash all Verified 08/25/24 09:25 Antibiotics) over body sulfamethoxazole Allergy Unknown rash all Verified 08/25/24 09:25 [From Bactrim] over body trimethoprim [From Bactrim] Allergy Unknown rash all Verified 08/25/24 09:25 over body glipizide AdvReac Intermediate hypoglycemi Verified 08/25/24 09:25 a Home Medications ?Medication ?Instructions ?Recorded ?Confirmed ?Last Taken ?Type cholecalciferol (vitamin D3) 50 50 mcg PO DAILY 03/09/21 12/02/24 09/29/21 History mcg (2,000 unit) capsule aspirin 81 mg tablet,delayed 81 mg PO DAILY 05/02/22 12/02/24 Unknown History release gtrbdehbydkr-kcwhikqs-vdlxxd tablet 1 tab PO DAILY 08/04/24 12/02/24 Unknown History calcium carbonate (Tums Extra 300 mg PO BID PRN Acid Reflux 09/07/24 12/02/24 Unknown History Strength Smoothies) acetaminophen 650 mg 1,300 mg PO Q8H 12/02/24 12/02/24 Unknown History tablet,extended release ibuprofen 200 mg tablet 400 mg PO Q6H PRN Pain 12/02/24 12/02/24 Unknown History Exam Height,Weight and Vital Signs: Height 5 ft 2.99 in Weight 67.9 kg Assessment and Plan Assessment Anesthesia Assessment: Chart Reviewed
[2024-12-07] MEDS: Tetracaine HCl/PF 0.5% Oph Sol 4 ML DROPS 1 DROP EYE-RIGHT (07:52)
[2024-12-07] MEDS: Cyclopentolate 1 % Ophth Sol 2 ML DRPBTL 1 DROP EYE-RIGHT ×3 (07:53→07:57)
[2024-12-07] MEDS: Phenylephrine HCL 2.5% Oph SoL 2 ML BOTTLE 1 DROP EYE-RIGHT ×3 (07:54→07:58)
[2024-12-07] MEDS: Ketorolac Tromethamine 0.5% Op 5 ML DROPS 1 DROP EYE-RIGHT ×3 (07:54→07:57)
[2024-12-07] MEDS: Tropicamide 1 % Ophth Sol 3 ML BTL 1 DROP EYE-RIGHT ×3 (07:54→07:57)
--- NOTE | 2024-12-07 07:57 | P.CONAN_ITS ---
[facility] Active Problems Active Problems: All Active Problems Multiple fractures of ribs (Acute) Pulmonary nodule (Acute) CAD (coronary artery disease) (Acute) Upper back pain on left side (Acute) Thoracic spine pain (Acute) Hospital discharge follow-up (Acute) Other and unspecified hyperlipidemia (Acute) Essential hypertension (Acute) Type 2 diabetes mellitus with unspecified complications (Acute) Precordial chest pain (Acute) Chest pain (Acute) Laryngitis (Acute) Elevated liver enzymes (Acute) HLD (hyperlipidemia) (Acute) Family hx of melanoma (Acute) Foot callus (Acute) HTN (hypertension) (Acute) DMII (diabetes mellitus, type 2) (Acute) Past Medical History Medical History Other and unspecified hyperlipidemia Essential hypertension Type 2 diabetes mellitus with unspecified complications Functional capacity: independent ambulation Patient : No Family History Family History Father Lung cancer Hypertension High cholesterol CAD (coronary artery disease) Mother Lung cancer Hypertension Stroke High cholesterol Son No problems noted. Daughter Asthma Hypothyroid Maternal Grandmother Diabetes Hypertension Stroke Maternal Grandfather No problems noted. Paternal Grandmother CAD (coronary artery disease) Hypertension Sister Melanoma Mental health disorder Family history of problems with anesthesia: No Surgical History Surgical History History of abdominal surgery History of vocal cord polypectomy History of cervical polypectomy History of colonoscopy History of arthroscopy of left knee History of section History of Problems with Anesthesia: No Social History Social History Household Members: Other Housing: House Are you a primary plant health care technician to a significant other at home: No Do you presently have visiting nurse or other home services: No Unable to assess alcohol history related to: Unknown Alcohol intake: current Alcohol intake frequency: does not drink Alcohol type: beer Patient Tobacco Use Status: Former Tobacco user Tobacco use type: Cigarette e-Cigarette/Vaping Use: Former Use Second Hand Smoke Exposure: No Use of substances other than those prescribed or required for medical reasons: No Have you been hit, kicked, punched, or otherwise hurt by someone within the past year? If so, by whom?: No Are you DNR?: No Advance Directives: Yes Advance Directives Information Provided: No Advance Directives on File: Yes Advance Directives Date on File: 09/30/21 Patient : No : No service: No Current occupational status: employed Current occupational exposures/hazards: No Cognitive needs: No Hearing needs: Yes Vision needs: Yes Meds Allergies Allergy/AdvReac Type Severity Reaction Status Date / Time Sulfa (Sulfonamide Allergy Unknown rash all Verified 12/07/24 07:44 Antibiotics) over body sulfamethoxazole Allergy Unknown rash all Verified 12/07/24 07:44 [From Bactrim] over body trimethoprim [From Bactrim] Allergy Unknown rash all Verified 12/07/24 07:44 over body glipizide AdvReac Intermediate hypoglycemi Verified 12/07/24 07:44 a Active Medications: Current Medications Lactated Ringer's (Lr) 500 mls @ 50 mls/hr IV .Q10H SHAY Stop: 12/07/24 17:44 Povidone Iodine (Povidone Iodine 5 % Ophth Soln 30 Ml Bottle) 1 appl EYE-RIGHT PREOP PRN PRN Reason: Pre-Op Surgical Implant Prophy Home Medications ?Medication ?Instructions ?Recorded ?Confirmed ?Last Taken ?Type cholecalciferol (vitamin D3) 50 50 mcg PO DAILY 03/09/21 12/07/24 09/29/21 History mcg (2,000 unit) capsule aspirin 81 mg tablet,delayed 81 mg PO DAILY 05/02/22 12/07/24 Unknown History release dhwiruxkufeo-npccgryc-ogjwsb tablet 1 tab PO DAILY 08/04/24 12/07/24 Unknown History calcium carbonate (Tums Extra 300 mg PO BID PRN Acid Reflux 09/07/24 12/07/24 Unknown History Strength Smoothies) acetaminophen 650 mg 1,300 mg PO Q8H 12/02/24 12/07/24 Unknown History tablet,extended release ibuprofen 200 mg tablet 400 mg PO Q6H PRN Pain 12/02/24 12/07/24 Unknown History Exam Height,Weight and Vital Signs: Height 5 ft 2.99 in Weight 67.9 kg Airway Mallampati Class: II TM Dist: >3cm Neck ROM: Full Heart: RRR Lungs: CTA Assessment and Plan Assessment Anesthesia Assessment: Anesthesia Plan Discussed Final Anesthetic Review Family History of Problems with Anesthesia: No History of Problems with Anesthesia: No NPO: Yes ASA Class: II Final Preanesthetic Review: Meds/Allgs Chart Reviewed, Consent Obtained/Reviewed and Anes Risks/Benef Reviewed Patient Risk: Low Procedure Risk: Low Anesthetic Plan Anesthetic Plan: MAC: Disposition: Standard PACU
[2024-12-07 07:59] VITALS: BP 140/64; PULSE 77; RESP 14; TEMP 36.6; O2SAT 99
[2024-12-07] MEDS: Lactated Ringers 500 ML 50 ML IV (08:02)
--- NOTE | 2024-12-07 08:30 | P.PCNO_ITS ---
Ophthalmology Procedure Procedure Date of Service: 12/07/24 Ophthalmology Viscoelastic: Healon Duet Dual Pack Pro Ophthalmology Lenses: IOL Acrysof MP - MA60AC (25) Procedure Notes: PREOPERATIVE DIAGNOSIS: Decreased visual acuity right eye secondary to cataract POSTOPERATIVE DIAGNOSIS: Same PROCEDURE: Right cataract extraction with intraocular lens insertion SURGEON: Christopher Bey M.D. ANESTHESIA: Topical/MAC ESTIMATED BLOOD LOSS: None COMPLICATIONS: None After obtaining informed consent, the patient was brought to the operating room suite and placed in the supine position. After adequate sedation per anesthesia, topical drops of Tetracaine were given to the right eye. The eye was then prepped and draped in the usual sterile fashion. The operating room microscope was then positioned over the operative eye and a lid speculum placed. A paracentesis was created. Viscoelastic was then instilled into the anterior chamber. A three plane incision was then created temporally, utilizing a 2.85 mm keratome. Capsulotomy forceps were then utilized to create a circular tear capsulotomy. Hydrodissection and hydrodelineation were carried out until adequate mobilization of the nucleus occurred. Phacoemulsification was then utilized to remove the dense central nucl eus followed by removal of the cortical material utilizing the automated aspiration irrigation unit. Viscoelastic was instilled into the posterior capsular bag followed by placement of a posterior chamber intraocular lens without difficulty. The residual Viscoelastic was then removed utilizing the automated IA machine. The wound was checked and found to be watertight. The patient tolerated the procedure well and the lid speculum was removed. Intracameral injection of Vigamox 0.1 mL followed by a subtenon injection of Kenalog-40 0.2 mL were administered. The patient will be seen in the a.m.
--- NOTE | 2024-12-07 08:30 | MHC.SHP ---
Pre-Procedural Eval Section A - 24 Hr Update-Section A only Date of Service: 12/07/24 The patient is an INPATIENT: No Changes since office visit: No Cold of Flu in the past 2 weeks, No New Medical Problems, No Changes in Medication and No Patient answered all questions The patient has been examined within 24 hours of the surgical procedure. The History & Physical has been completed within 30 days and I have reviewed it.: Yes Section B - Complete if H&P > 30 days Chief Complaint: Age-related nuclear cataract, right eye Allergies: Allergies Allergy/AdvReac Type Severity Reaction Status Date / Time Sulfa (Sulfonamide Allergy Unknown rash all Verified 12/07/24 07:44 Antibiotics) over body sulfamethoxazole Allergy Unknown rash all Verified 12/07/24 07:44 [From Bactrim] over body trimethoprim [From Bactrim] Allergy Unknown rash all Verified 12/07/24 07:44 over body glipizide AdvReac Intermediate hypoglycemi Verified 12/07/24 07:44 a Plan Diagnosis/Plan: Unchanged I have reviewed the history and physical and performed a pertinent physical examination on my patient. No changes have occurred unless specified. Time Spent With Patient Time: Total time managing care of this patient today ____ minutes.
[2024-12-07 08:58] VITALS: BP 126/69; PULSE 64; RESP 16; TEMP 36.1; O2SAT 97
[2024-12-07 09:01] VITALS: BP 123/66; PULSE 65; RESP 16; TEMP 36.1; O2SAT 97
--- NOTE | 2024-12-07 09:14 | HO.POSTANES ---
Post Anesthesia Evaluation Post Anesthesia Evaluation Date of Service: 12/07/24 Vital Signs: Vital Signs Temp Pulse Resp BP Pulse Ox O2 Del Method 12/07/24 09:01 97 F 65 16 123/66 97 Room Air 12/07/24 08:58 97 F 64 16 126/69 97 Room Air 12/07/24 07:59 97.8 F 77 14 140/64 H 99 Room Air Anesthesia: Monitored Mental Status: Awake Pain Control: Satisfactory Nausea/Vomiting: None Hydration: Adequate Anesthesia-Related Issues: No Anes. Related Issues
== END 2024-12-07 09:17 | disposition home or self-care (01) ==
PROVIDERS: PCP Internal Medicine; Visit Provider Ophthalmology
PROC: (CPT 66985; principal; 2024-12-07 09:00)
DX: H25.11 Age-related nuclear cataract, right eye (principal); Z83.511 Family history of glaucoma; H54.7 Unspecified visual loss; E11.9 Type 2 diabetes mellitus without complications; E78.00 Pure hypercholesterolemia, unspecified; M81.0 Age-related osteoporosis without current pathological fracture; L71.9 Rosacea, unspecified; I10 Essential (primary) hypertension; H91.90 Unspecified hearing loss, unspecified ear; Z79.82 Long term (current) use of aspirin; Z79.84 Long term (current) use of oral hypoglycemic drugs; Z79.899 Other long term (current) drug therapy; Z98.890 Other specified postprocedural states; Z88.2 Allergy status to sulfonamides; Z87.891 Personal history of nicotine dependence; Z88.8 Allergy status to other drugs, medicaments and biological substances
CPT/HCPCS: 66984; J2250; J3301; V2630

== ENCOUNTER 2024-12-21 07:38 | Day surgery (SDC) | payer MEDICARE, SELFPAY ==
[2024-12-02 07:40] VITALS: BMI 26.5
[2024-12-21 08:49] VITALS: BP 122/69; PULSE 71; RESP 12; TEMP 36.6; O2SAT 98
[2024-12-21] MEDS: Cyclopentolate 1 % Ophth Sol 2 ML DRPBTL 1 DROP EYE-LEFT ×3 (08:56→09:05)
[2024-12-21] MEDS: Lactated Ringers 500 ML IVCONT (08:57)
[2024-12-21] MEDS: Tetracaine HCl/PF 0.5% Oph Sol 4 ML DROPS 1 DROP EYE-LEFT (08:57)
[2024-12-21] MEDS: Tropicamide 1 % Ophth Sol 3 ML BTL 1 DROP EYE-LEFT ×3 (08:59→09:05)
[2024-12-21] MEDS: Ketorolac Tromethamine 0.5% Op 5 ML DROPS 1 DROP EYE-LEFT ×3 (09:00→09:07)
[2024-12-21] MEDS: Phenylephrine HCL 2.5% Oph SoL 2 ML BOTTLE 1 DROP EYE-LEFT ×2 (09:01→09:04)
[2024-12-21 09:18] LABS: Glucose, Whole Blood 107 mg/dL (60-115)
--- NOTE | 2024-12-21 09:20 | HO.ANESPROP2 ---
[facility] Active Problems Active Problems: All Active Problems (Updated 08/08/24 @ 00:00 by Luis Burger) Multiple fractures of ribs (Acute) Pulmonary nodule (Acute) CAD (coronary artery disease) (Acute) Upper back pain on left side (Acute) Thoracic spine pain (Acute) Hospital discharge follow-up (Acute) Other and unspecified hyperlipidemia (Acute) Essential hypertension (Acute) Type 2 diabetes mellitus with unspecified complications (Acute) Precordial chest pain (Acute) Chest pain (Acute) Laryngitis (Acute) Elevated liver enzymes (Acute) HLD (hyperlipidemia) (Acute) Family hx of melanoma (Acute) Foot callus (Acute) HTN (hypertension) (Acute) DMII (diabetes mellitus, type 2) (Acute) Past Medical History Medical History Other and unspecified hyperlipidemia Essential hypertension Type 2 diabetes mellitus with unspecified complications Family History Family History Father Lung cancer Hypertension High cholesterol CAD (coronary artery disease) Mother Lung cancer Hypertension Stroke High cholesterol Son No problems noted. Daughter Asthma Hypothyroid Maternal Grandmother Diabetes Hypertension Stroke Maternal Grandfather No problems noted. Paternal Grandmother CAD (coronary artery disease) Hypertension Sister Melanoma Mental health disorder Family history of problems with anesthesia: No Surgical History Surgical History History of abdominal surgery History of vocal cord polypectomy History of cervical polypectomy History of colonoscopy History of arthroscopy of left knee History of section History of Problems with Anesthesia: No Social History Social History Household Members: Other Housing: House Are you a primary out of school hours care worker to a significant other at home: No Do you presently have visiting nurse or other home services: No Unable to assess alcohol history related to: Unknown Alcohol intake: current Alcohol intake frequency: does not drink Alcohol type: beer Patient Tobacco Use Status: Former Tobacco user Tobacco use type: Cigarette e-Cigarette/Vaping Use: Former Use Second Hand Smoke Exposure: No Use of substances other than those prescribed or required for medical reasons: No Have you been hit, kicked, punched, or otherwise hurt by someone within the past year? If so, by whom?: No Are you DNR?: No Advance Directives: Yes Advance Directives Information Provided: Yes Advance Directives on File: No Advance Directives Date on File: 09/30/21 Patient : No : No service: No Current occupational status: employed Current occupational exposures/hazards: No Cognitive needs: No Hearing needs: Yes Vision needs: Yes Meds Allergies Allergy/AdvReac Type Severity Reaction Status Date / Time Sulfa (Sulfonamide Allergy Unknown rash all Verified 12/21/24 08:41 Antibiotics) over body sulfamethoxazole (From Allergy Unknown rash all Verified 12/21/24 08:41 Bactrim) over body trimethoprim (From Bactrim) Allergy Unknown rash all Verified 12/21/24 08:41 over body glipizide AdvReac Intermediate hypoglycemi Verified 12/21/24 08:41 a Active Medications: Current Medications Lactated Ringer's (Lr) 500 mls @ 500 mls/hr IVCONT .Q1H PRN PRN Reason: Pre-Op Surgical Prep Last Admin: 12/21/24 08:57 Dose: 500 mls/hr Naloxone HCl (Naloxone Hcl 0.4 Mg/Ml Vial) 0.04 mg IVPUSH Q5M PRN PRN Reason: Excessive sedation or RR < 8 Povidone Iodine (Povidone Iodine 5 % Ophth Soln 30 Ml Bottle) 1 appl EYE-LEFT PREOP PRN PRN Reason: Pre-Op Surgical Implant Prophy Home Medications ?Medication ?Instructions ?Recorded ?Confirmed ?Last Taken ?Type cholecalciferol (vitamin D3) 50 50 mcg PO DAILY 03/09/21 12/07/24 09/29/21 History mcg (2,000 unit) capsule aspirin 81 mg tablet,delayed 81 mg PO DAILY 05/02/22 12/07/24 Unknown History release pcmamdftvlpi-cvisysdx-wqcfif tablet 1 tab PO DAILY 08/04/24 12/07/24 Unknown History calcium carbonate (Tums Extra 300 mg PO BID PRN Acid Reflux 09/07/24 12/07/24 Unknown History Strength Smoothies) acetaminophen 650 mg 1,300 mg PO Q8H 12/02/24 12/07/24 Unknown History tablet,extended release ibuprofen 200 mg tablet 400 mg PO Q6H PRN Pain 12/02/24 12/07/24 Unknown History Exam Height,Weight and Vital Signs: Height 5 ft 2.99 in Weight 67.9 kg Last Vital Signs Temp 97.8 F 12/21/24 08:49 Pulse 71 12/21/24 08:49 Resp 12 12/21/24 08:49 BP 122/69 12/21/24 08:49 Pulse Ox 98 12/21/24 08:49 O2 Del Method Room Air 12/21/24 08:49 Pertinent Lab Results Pertinent Lab Results: Laboratory Tests 12/21/24 09:13 POC Glucose 107 Airway Mallampati Class: II (multiple caps all over) TM Dist: >3cm Neck ROM: Full Heart: rrr Lungs: cta Assessment and Plan Assessment Anesthesia Assessment: Anesthesia Plan Discussed and Chart Reviewed Final Anesthetic Review Family History of Problems with Anesthesia: No History of Problems with Anesthesia: No NPO: Yes ASA Class: III Final Preanesthetic Review: No Changes in Pt Med Stat, Meds/Allgs Chart Reviewed and Consent Obtained/Reviewed Patient Risk: Low Procedure Risk: Low Anesthetic Plan Anesthetic Plan: MAC: Disposition: Standard PACU
--- NOTE | 2024-12-21 09:33 | MHC.SHP ---
Pre-Procedural Eval Section A - 24 Hr Update-Section A only Date of Service: 12/21/24 The patient is an INPATIENT: No Changes since office visit: No Cold of Flu in the past 2 weeks, No New Medical Problems, No Changes in Medication and No Patient answered all questions The patient has been examined within 24 hours of the surgical procedure. The History & Physical has been completed within 30 days and I have reviewed it.: Yes Section B - Complete if H&P > 30 days Chief Complaint: Age-related nuclear cataract, left eye Allergies: Allergies Allergy/AdvReac Type Severity Reaction Status Date / Time Sulfa (Sulfonamide Allergy Unknown rash all Verified 12/21/24 08:41 Antibiotics) over body sulfamethoxazole (From Allergy Unknown rash all Verified 12/21/24 08:41 Bactrim) over body trimethoprim (From Bactrim) Allergy Unknown rash all Verified 12/21/24 08:41 over body glipizide AdvReac Intermediate hypoglycemi Verified 12/21/24 08:41 a Plan Diagnosis/Plan: Unchanged I have reviewed the history and physical and performed a pertinent physical examination on my patient. No changes have occurred unless specified. Time Spent With Patient Time: Total time managing care of this patient today ____ minutes.
--- NOTE | 2024-12-21 09:33 | HO.PNOPHT ---
Ophthalmology Procedure Procedure Date of Service: 12/21/24 Ophthalmology Viscoelastic: Healon Duet Dual Pack Pro Ophthalmology Lenses: IOL Acrysof MP - MA60AC (25) Procedure Notes: PREOPERATIVE DIAGNOSIS: Decreased visual acuity left eye secondary to cataract POSTOPERATIVE DIAGNOSIS: Same PROCEDURE: Left cataract extraction with intraocular lens insertion SURGEON: Christopher Bey M.D. ANESTHESIA: Topical/MAC ESTIMATED BLOOD LOSS: None COMPLICATIONS: None After obtaining informed consent, the patient was brought to the operation room suite and placed in the supine position. After adequate sedation per anesthesia, topical drops of Tetracaine were given to the left eye. The eye was then prepped and draped in the usual sterile fashion. The operating room microscope was then positioned over the operative eye and a lid speculum placed. A paracentesis was created. Viscoelastic was then instilled into the anterior chamber. A three plane incision was then created temporally, utilizing a 2.85 mm keratome. Capsulotomy forceps were then utilized to create a circular tear capsulotomy. Hydrodissection and hydrodelineation were carried out until adequate mobilization of the nucleus occurred. Phacoemulsification was then utilized to remove the dense central nucleus followed by removal of the cortical material utilizing the automated aspiration irrigation unit. Viscoat elastic was instilled into the posterior capsular bag followed by placement of a posterior chamber intraocular lens without difficulty. The residual Viscoat elastic was then removed utilizing the automated IA machine. The wound was check and found to be watertight. The patient tolerated the procedure well and the lid speculum was removed. Intracameral injection of Vigamox 0.1 mL followed by a subtenon injection of Kenalog-40 0.2 mL were administered. The patient will be seen in the a.m.
[2024-12-21 09:57] VITALS: BP 123/60; PULSE 63; RESP 18; TEMP 36.1; O2SAT 100
== END 2024-12-21 10:28 | disposition home or self-care (01) ==
PROVIDERS: PCP Internal Medicine; Visit Provider Ophthalmology
PROC: (CPT 66985; principal; 2024-12-21 10:00)
DX: H25.12 Age-related nuclear cataract, left eye (principal); H54.7 Unspecified visual loss; Z83.511 Family history of glaucoma; I10 Essential (primary) hypertension; E11.9 Type 2 diabetes mellitus without complications; E78.00 Pure hypercholesterolemia, unspecified; M81.0 Age-related osteoporosis without current pathological fracture; L71.9 Rosacea, unspecified; H91.90 Unspecified hearing loss, unspecified ear; Z79.82 Long term (current) use of aspirin; Z79.84 Long term (current) use of oral hypoglycemic drugs; Z79.899 Other long term (current) drug therapy; Z88.2 Allergy status to sulfonamides; Z88.8 Allergy status to other drugs, medicaments and biological substances; Z98.890 Other specified postprocedural states; Z87.891 Personal history of nicotine dependence
CPT/HCPCS: 66984; 82947; J2250; J3301; V2630